=== PATIENT | female | born 1975 | race Caucasian/White ===

== ENCOUNTER 2022-01-05 08:55 | Outpatient (REF) | payer OTHER, SELFPAY ==
[2022-01-05 09:20] LABS: MANUAL DIFF FLAG NO
[2022-01-05 09:41] LABS: Basophils Absolute Auto 0.1 X10*3/uL (0.0-0.2); Eosinophils Absolute Auto 0.2 X10*3/uL (0.0-0.4); Eosinophils Percent Auto 3.9 % (0-4); Hemoglobin 11.5 g/dl (12.0-16.0); Imm Gran Abs Auto 0.02 X10*3/uL (0.00-0.03); Imm Gran Pct Auto 0.3 % (0.0-0.4); Lymphocytes Absolute Auto 1.5 X10*3/uL (1.2-4.9); Lymphocytes Percent Auto 23.6 % (20-40); Mean Corpuscular HGB Conc 31.9 g/dl (31.0-35.0); Mean Corpuscular Volume 87.6 fL (80.0-98.0); Mean Platelet Volume 9.4 fL (9.4-12.3); Monocytes Absolute Auto 0.5 X10*3/uL (0.1-1.2); Monocytes Percent Auto 7.6 % (2-11); Neutrophils Absolute Auto 3.9 x10*3/uL (2.0-8.3); Neutrophils Percent Auto 63.6 % (45-73); Platelet Count 257 X10*3/uL (160-400); Red Blood Count 4.11 X10*6/uL (4.20-5.50); Red Cell Distribution Width 16.4 % (11.0-16.0); White Blood Count 6.2 X10*3/uL (4.8-10.8)
[2022-01-05 10:11] LABS: Alanine Aminotransferase 22 U/L (0-31); Albumin Level 4.2 g/dL (3.5-5.0); Alkaline Phosphatase 72 U/L (39-117); Anion Gap 9 (12-20); Aspartate Amino Transferase 22 U/L (5-31); Bilirubin Total 0.6 mg/dL (0.0-1.0); Blood Urea Nitrogen 5 mg/dL (9-16); Calcium 9.1 mg/dL (8.4-10.2); Carbon Dioxide 27 mmol/L (22-29); Chloride 105 mmol/L (96-108); Cholesterol 194 mg/dL; Estimated Glomerular Filt Rate > 60; Glucose Fasting 96 mg/dL (60-99); HDL Cholesterol 39 mg/dL; LDL Cholesterol Calculated 140 mg/dl; Potassium 4.4 mmol/L (3.3-5.1); Sodium 137 mmol/L (135-145); Total Protein 7.4 g/dL (6.5-8.0); Triglycerides 79 mg/dL
[2022-01-05 10:23] LABS: TSH reflex Free T4 1.35 uIU/mL (0.32-4.0); Vitamin D 25-OH Total 11.4 ng/mL (>30)
[2022-01-05 11:27] LABS: Folate 4.7 ng/mL (> or = 4.0); Vitamin B12 243 pg/mL (200-900)
== END 2022-01-05 08:56 | disposition home or self-care (01) ==
LOC: HO.LAB 08:55
PROVIDERS: Visit Provider Nurse Practitioner Family
DX: I10 Essential (primary) hypertension (principal); E78.5 Hyperlipidemia, unspecified; E03.9 Hypothyroidism, unspecified; Z13.1 Encounter for screening for diabetes mellitus
CPT/HCPCS: 36415; 80053; 80061; 82306; 82607; 82746; 84443; 85025

== ENCOUNTER 2022-01-12 12:00 | Outpatient (REF) | payer OTHER, SELFPAY ==
--- NOTE | ~2022-01-12 | MM_ITS ---
EXAMINATION: MM SCREENING DIGITAL BREAST TOMOSYNTHESIS, BILATERAL CLINICAL INFORMATION: Screening. Asymptomatic. No prior breast imaging. Age 46. No known family history breast cancer. The lifetime risk of breast cancer based on the Tyrer-Cuzick Model is 12%. COMPARISON: None (current study represents initial baseline exam). TECHNIQUE: Digital breast tomosynthesis is performed in both the craniocaudal and mediolateral oblique views along with computer-aided detection (CAD). Synthesized 2D images are generated from the tomosynthesis. FINDINGS: There are scattered areas of fibroglandular density (ACR BI-RADS breast composition Category b). There are no significant masses, abnormal calcifications, or other abnormalities. Small circumscribed dermal lesion posterior medial right breast, confirmed with the technologist. The axilla are unremarkable. MM/MM tomosynthesis screening BI IMPRESSION: No mammographic evidence of malignancy. ASSESSMENT: BI-RADS 2: Benign RECOMMENDATION: Routine annual mammography screening. This patient's information was entered into a reminder system with a target due date for their next mammogram.
== END 2022-01-12 12:01 | disposition home or self-care (01) ==
LOC: HO.MAMMO 12:00
PROVIDERS: PCP Internal Medicine; Visit Provider Nurse Practitioner Family
DX: Z12.31 Encounter for screening mammogram for malignant neoplasm of breast (principal); K31.84 Gastroparesis; K21.9 Gastro-esophageal reflux disease without esophagitis
CPT/HCPCS: 77063; 77067; 99202

== ENCOUNTER → 2022-04-05 08:05 | Outpatient (REF) | payer OTHER, SELFPAY ==
--- NOTE | ~2022-04-05 | NM_ITS ---
EXAMINATION: [place] RADIONUCLIDE SOLID FOOD GASTRIC EMPTYING 4-HOUR STUDY CLINICAL INFORMATION: Gastroparesis. COMPARISON: None TECHNIQUE: A standard meal consisting of 4 oz of Egg Beaters brand tagged with 1000 microcuries Tc-99m Sulfur Colloid, 8 oz water and 2 slices of toast with jelly was administered orally to the patient. Images were obtained using a dual head gamma camera in the anterior and posterior projections over of the stomach immediately post ingestion and at hourly intervals up to 4 hours post ingestion. The anterior and posterior counts at each time interval were averaged using the geometric mean and expressed as percentage of the immediate post ingestion counts. FINDINGS: There is good visualization of activity in the stomach immediately post ingestion. As the study progresses, there is good clearance of activity from the stomach and visualization of progressively increasing small bowel activity. By the end of the study, there is almost no retention noted in the stomach. Retention in the stomach at each time interval was: 1 hour 90% (normal 37%-90%) 2 hours 76% (normal 30%-60%) 3 hours 55% 4 hours 52% (normal 0%-10%) AZ/AZ gastric emptying study IMPRESSION: Abnormal gastric emptying study showing features of gastroparesis.
[2022-04-05 13:49] LABS: Alanine Aminotransferase 13 U/L (0-31); Albumin Level 4.4 g/dL (3.5-5.0); Alkaline Phosphatase 74 U/L (39-117); Anion Gap 14 (12-20); Aspartate Amino Transferase 14 U/L (5-31); Bilirubin Total 0.4 mg/dL (0.0-1.0); Blood Urea Nitrogen 8 mg/dL (9-16); Calcium 9.9 mg/dL (8.4-10.2); Carbon Dioxide 27 mmol/L (22-29); Chloride 102 mmol/L (96-108); Cholesterol 217 mg/dL; Estimated Glomerular Filt Rate > 60; Glucose Random 91 mg/dL (60-115); HDL Cholesterol 41 mg/dL; LDL Cholesterol Calculated 154 mg/dl; Potassium 4.7 mmol/L (3.3-5.1); Sodium 138 mmol/L (135-145); Total Protein 8.1 g/dL (6.5-8.0); Triglycerides 111 mg/dL
[2022-04-05 14:13] LABS: TSH reflex Free T4 2.81 uIU/mL (0.32-4.0); Vitamin D 25-OH Total 42.5 ng/mL (>30)
== END ==
LOC: HO.NUCMED 08:05
PROVIDERS: Nurse Practitioner Family; Visit Provider Physician Assistant
DX: K31.84 Gastroparesis (principal); K21.9 Gastro-esophageal reflux disease without esophagitis; I10 Essential (primary) hypertension; R79.89 Other specified abnormal findings of blood chemistry; E78.5 Hyperlipidemia, unspecified; E03.9 Hypothyroidism, unspecified
CPT/HCPCS: 36415; 78264; 80053; 80061; 82306; 84443; A9541

== ENCOUNTER 2022-06-07 11:18 | Outpatient (REF) | payer OTHER, SELFPAY ==
[2022-06-07 12:53] LABS: Erythrocyte Sedimentation Rate 13 MM/HR (0-20)
[2022-06-08 13:07] LABS: Anti Nuclear Antibody Screen NEGATIVE (NEGATIVE)
[2022-06-20 18:31] LABS: Hu Antibody Screen, IFA Serum NEGATIVE (NEGATIVE); Yo Antibody, Serum Screen NEGATIVE (NEGATIVE)
== END 2022-06-07 11:19 | disposition home or self-care (01) ==
LOC: HO.LAB 11:18
PROVIDERS: PCP Internal Medicine; Visit Provider Physician Assistant
DX: R19.7 Diarrhea, unspecified (principal); R74.01 Elevation of levels of liver transaminase levels; K31.84 Gastroparesis; E03.9 Hypothyroidism, unspecified; Z87.74 Personal history of (corrected) congenital malformations of heart and circulatory system
CPT/HCPCS: 36415; 84181; 85652; 86038; 86039; 86255; 86256

== ENCOUNTER 2022-09-13 14:53 | Outpatient (REF) | payer OTHER, SELFPAY ==
--- NOTE | ~2022-09-13 | US_ITS ---
EXAMINATION: US THYROID CLINICAL INFORMATION: History of thyroid nodule. COMPARISON: None TECHNIQUE: Linear transducer grayscale and color Doppler examination with attention to the region of the thyroid. FINDINGS: SIZE: Measurements of the thyroid lobes and nodules are given in sagittal, anteroposterior and transverse dimensions respectively. Right Thyroid Lobe: 4.9 x 1.2 x 1.7 cm, volume 5.1 mL. Parenchyma: The gland echotexture is homogeneous. Thyroid vascularity is increased. Left Thyroid Lobe: 4.5 x 0.9 x 1.4 cm, volume 3.0 mL. Parenchyma: The gland echotexture is homogeneous. Thyroid vascularity is increased. Isthmus: 0.2 cm in maximum AP dimension. Estimated total number of nodules greater than or equal to 1 cm: 0. Type Photography Supervisor nodules are described as follows: 1. Location: Right medial mid. Size: 0.6 x 0.3 x 0.5 cm, volume 0.1 mL. Nodule characteristics: Composition: Solid/almost completely solid (2). Echogenicity: Hypoechoic (2). Shape: Not taller than wide (0). Margins: Smooth (0). Echogenic Foci: None (0). ACR TI-RADS total points: 4 ACR TI-RADS category: 4 2. Location: Right mid. Size: 0.2 x 0.2 x 0.2 cm, volume 0.004 mL. Nodule characteristics: Composition: Solid (2). Echogenicity: Hypoechoic (2). Shape: Not taller than wide (0). Margins: Smooth (0). Echogenic Foci: None (0). ACR TI-RADS total points: 4 ACR TI-RADS category: 4 3. Location: Left mid/inferior. Size: 0.6 x 0.5 x 0.5 cm, volume 0.1 mL. Nodule characteristics: Composition: Solid (2). Echogenicity: Hyperechoic (1). Shape: Not taller than wide (0). Margins: Smooth (0). Echogenic Foci: None (0). ACR TI-RADS total points: 3 ACR TI-RADS category: 3 NODES: No lymphadenopathy is seen in the tissue surrounding the thyroid gland. US/US thyroid IMPRESSION: Hypervascular thyroid gland, nonspecific could be seen with thyroiditis or autoimmune thyroid disorders. Multiple subcentimeter thyroid nodules, some hypoechoic and classified as TR-4, not meeting size criteria for further evaluation according to TI-RADS guidelines below. Recommend follow-up according to clinical criteria. ACR TI-RADS RECOMMENDATION REFERENCE: Ultrasound-guided fine-needle aspiration, followup ultrasound, no further follow up. * TR1 (0 point) and TR2 (2 points): No FNA or follow up. * TR3 (3 points): FNA if more than or equal to 2.5 cm in maximum dimension, followup ultrasound in 1, 3 and 5 years if 1.5 to 2.4 cm in maximum dimension. * TR4 (4-6 points): FNA if more than or equal to 1.5 cm in maximum dimension, followup ultrasound in 1, 2, 3 and 5 years if 1 to 1.4 cm in maximum dimension. * TR5 (more than or equal to 7 points): FNA if more than or equal to 1 cm in maximum dimension, followup ultrasound every year for 5 years if 0.5 to 0.9 cm in maximum dimension. * TR3, TR4 or TR5 nodules that are below the size threshold for followup receive no follow up.
== END 2022-09-13 14:54 | disposition home or self-care (01) ==
LOC: HO.US 14:53
PROVIDERS: Visit Provider Nurse Practitioner Family
DX: Z86.39 Personal history of other endocrine, nutritional and metabolic disease (principal)
CPT/HCPCS: 76536

== ENCOUNTER 2022-10-06 09:16 | Outpatient (REF) | payer OTHER, SELFPAY ==
[2022-10-06 12:14] LABS: Hemoglobin 11.8 g/dl (12.0-16.0); Mean Corpuscular HGB Conc 31.9 g/dl (31.0-35.0); Mean Corpuscular Hemoglobin 26.8 pg (27.0-33.0); Mean Corpuscular Volume 83.9 fL (80.0-98.0); Mean Platelet Volume 9.9 fL (9.4-12.3); Platelet Count 317 X10*3/uL (160-400); Red Blood Count 4.41 X10*6/uL (4.20-5.50); Red Cell Distribution Width 17.5 % (11.0-16.0); White Blood Count 5.6 X10*3/uL (4.8-10.8)
[2022-10-06 12:54] LABS: Alanine Aminotransferase 14 U/L (0-31); Albumin Level 4.3 g/dL (3.5-5.0); Alkaline Phosphatase 55 U/L (39-117); Anion Gap 13 (12-20); Aspartate Amino Transferase 20 U/L (5-31); Bilirubin Total 0.6 mg/dL (0.0-1.0); Blood Urea Nitrogen 7 mg/dL (9-16); Carbon Dioxide 27 mmol/L (22-29); Chloride 105 mmol/L (96-108); Cholesterol 152 mg/dL; Estimated Glomerular Filt Rate > 60; Glucose Fasting 80 mg/dL (60-99); HDL Cholesterol 53 mg/dL; LDL Cholesterol Calculated 86 mg/dl; Potassium 4.9 mmol/L (3.3-5.1); Sodium 140 mmol/L (135-145); Total Protein 7.4 g/dL (6.5-8.0); Triglycerides 67 mg/dL
[2022-10-06 13:13] LABS: TSH reflex Free T4 1.47 uIU/mL (0.32-4.0); Vitamin D 25-OH Total 18.2 ng/mL (>30)
[2022-10-08 06:10] LABS: Thyroid Peroxidase Antibodies 205 IU/mL (<9)
== END 2022-10-06 09:17 | disposition home or self-care (01) ==
LOC: HO.LAB 09:16
PROVIDERS: Nurse Practitioner Family; PCP Internal Medicine; Visit Provider Physician Assistant
DX: K31.84 Gastroparesis (principal); K21.9 Gastro-esophageal reflux disease without esophagitis; K64.9 Unspecified hemorrhoids; E03.9 Hypothyroidism, unspecified; E78.5 Hyperlipidemia, unspecified; I10 Essential (primary) hypertension; R79.89 Other specified abnormal findings of blood chemistry; Z87.74 Personal history of (corrected) congenital malformations of heart and circulatory system; Z86.39 Personal history of other endocrine, nutritional and metabolic disease
CPT/HCPCS: 36415; 80053; 80061; 82306; 84443; 85027; 86376; 99212

== ENCOUNTER → 2022-11-01 12:58 | Outpatient (BNVA) | payer OTHER, SELFPAY | PROVIDERS: PCP Internal Medicine; Referring Provider Physician Assistant; Visit Provider Internal Medicine Cardiovascular Disease | DX: Z01.810 Encounter for preprocedural cardiovascular examination (principal); I25.2 Old myocardial infarction | CPT/HCPCS: 93005; 99202 ==

== ENCOUNTER → 2022-11-15 08:16 | Outpatient (REF) | payer OTHER, SELFPAY ==
--- NOTE | 2022-11-15 08:20 | CA_ITS ---
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 - The left ventricular systolic function is mildly decreased. The calculated ejection fraction is 50% by biplane method. - The apex segment is akinetic. - The basal inferior and basal inferolateral segments are hypokinetic. - No obvious valvular pathology seen on this study. - The inferior vena cava is dilated and collapses greater than 50% with inspiration. Findings Procedure Information Contrast agent, definity, is being given per protocol without apparent complications. Left Ventricle Mildly increased left ventricular cavity size. There is normal left ventricular wall thickness. The left ventricular systolic function is mildly decreased. The calculated ejection fraction is 50% by biplane method. There is evidence of regional wall motion abnormalities. Diastolic function is normal for age. Wall Motion Rest Echo Findings The basal inferior and basal inferolateral segments are hypokinetic. The apex segment is akinetic. Right Ventricle Normal right ventricular cavity size and systolic function. Atria The left atrium is normal in size. The right atrium is normal in size. Aortic Valve There is a normal trileaflet aortic valve. There is no aortic valve stenosis. There is trace (trivial) aortic valve regurgitation. Mitral Valve The mitral valve appears normal. There is no mitral valve regurgitation. There is no mitral valve stenosis. Pulmonic Valve The pulmonic valve is likely normal. Tricuspid Valve There is trace tricuspid valve regurgitation. There is no evidence of pulmonary hypertension. Great Vessels The asc aorta is normal in size. Venous The inferior vena cava is dilated and collapses greater than 50% with inspiration. Pericardium/Pleural There is no evidence of pericardial effusion. Prior Study Comparison No prior study available for comparison. Recommendations, Care & Conclusions No obvious valvular pathology seen on this study. Measurements 2D Linear Measurements IVSd: 0.67 0.6-0.9/0.6-1.0 cm LVIDd: 5.54 3.9-5.3/4.2-5.9 cm LVIDd Index: 2.86 2.4-3.2/2.2-3.1 cm/m2 LVIDs: 3.91 2.0-3.6 cm LVPWd: 0.70 0.7-1.1 cm LA Diam: 3.40 2.7-3.8/3.0-4.0 cm LAIDs Index: 1.75 1.5-2.3 cm/m2 LV Mass: 165.11 67-162/88-224 g LV Mass Index: 85.11 43-95/49-115 g/m2 LVOT Diam: 2.10 3.0+(-)1.3 cm 2D Systolic Function EF 4C: 43.40 >55% EF 2C: 56.70 >55% EF BiP: 50.20 >55% Mitral Valve MV Pk E: 0.81 MV PK A: 0.65 MV Decel Time: 145.00 E/A: 1.30 E'Lateral: 7.72 E'Medial: 6.20 E/E' Med: 13.10 E/E' Lat: 10.50 PHT: 43.00 MVA PHT: 5.12 Decel Kerr: 5.60 Aortic Valve AoV Pk Riky: 1.27 AoV Mn Riky: 0.92 AoV VTI: 0.31 AoV Pk Grad: 6.00 Aov Mn Grad: 4.00 FRED Cont.VTI: 2.32 LVOT LVOT Pk Riky: 0.84 LVOT Mn Riky: 0.59 LVOT VTI: 0.21 LVOT Pk Grad: 3.00 LVOT Mn Grad: 2.00 LVOT Diam: 2.10 LVOT Area: 3.46 Diastolic Function MV Pk E: 0.81 MV Pk A: 0.65 E/A: 1.30 E'Medial: 6.20 E/E' Med: 13.10 E' Laterial: 7.72 E/E' Lat: 10.50 Right Ventricle TAPSE (mm): 24.00 TVS' Riky: 12.60 Tricuspid Valve TR Pk Riky: 2.21 TR Pk Grad: 20.00 RA Press: 8.00 RVSP: 28.00 Great Vessels Aorta Sinus of Valsalva: 3.60 2.0-3.[address] [place]: 2.73 1.7-3.4 cm Ao Asc: 3.30 2.1-3.4 cm Updated in Other Vendor System with Status of Final Nick Ni MD electronically signed on 11/16/2022 11:52:40 AM with status of Final
== END ==
LOC: HO.CARD 08:16
PROVIDERS: PCP Internal Medicine; Visit Provider Internal Medicine Cardiovascular Disease
DX: I25.2 Old myocardial infarction (principal)
CPT/HCPCS: 93306; Q9957

== ENCOUNTER → 2022-12-13 16:14 | Outpatient (BNVA) | payer OTHER, SELFPAY | PROVIDERS: PCP Internal Medicine; Visit Provider Internal Medicine Endocrinology, Diabetes & Metabolism | DX: E03.9 Hypothyroidism, unspecified (principal) | CPT/HCPCS: 99202 ==

== ENCOUNTER 2023-01-03 08:32 | Day surgery (SDC) | payer OTHER, SELFPAY ==
[2022-12-30 09:58] VITALS: BMI 22.0
--- NOTE | 2023-01-02 11:05 | HO.ANESPROP2 ---
Documented by User: Lynsey Liu NP 01/02/23 11:08 HPI - Anesthesia Eval Consult details Narrative: 47yo F for Upper Endoscopy and Colonoscopy Cardiac optimized (Pt with hx of STEMI 2016 - cath/likely thromectomy, but records not available for review. Per cardiac office eval, no concerning symptoms with high exercise workload) PMFSH Active Problems Active Problems: All Active Problems (Updated 12/30/22 @ 10:00 by Keyona Chung RN) HTN (hypertension) (Acute) GERD (gastroesophageal reflux disease) (Acute) Hyperlipidemia (Acute) Hypothyroidism (Acute) Gastroparesis (Acute) Screening for diabetes mellitus (Acute) Gastritis (Acute) Low vitamin D level (Acute) Screening for breast cancer (Acute) Lower back pain (Acute) Left hand pain (Acute) Adult general medical exam (Acute) Cervical cancer screening (Acute) Hx of cardiac cath (Acute) Toenail fungus (Acute) Ingrown toenail of right foot (Acute) History of thyroid nodule (Acute) Hemorrhoids (Acute) History of myocardial infarction (Acute) Past Medical History Medical History (Updated 12/30/22 @ 10:00 by Keyona Chung RN) Encounter to establish care Heart attack History of myocardial infarction Family History Family History Mother Hypertension CHF (congestive heart failure) Afib Rheumatoid arthritis Father Hypertension High cholesterol Surgical History Surgical History (Updated 12/30/22 @ 10:00 by Keyona Chung RN) History of esophagogastroduodenoscopy (EGD) Hx of cardiac catheterization S/P tonsillectomy S/P tubal ligation Social History Social History Housing: House Patient Tobacco Use Status: Former Tobacco user Years Smoked: stopped in 2016, pt uses marijuanna for pain e-Cigarette/Vaping Use: Never Used Use of substances other than those prescribed or required for medical reasons: Yes Substance Use Type Other:: daily Are you DNR?: No Advance Directives: No Advance Directives Information Provided: Yes service: No Current occupational status: employed Cognitive needs: No Hearing needs: No Vision needs: Yes Meds Allergies Allergy/AdvReac Type Severity Reaction Status Date / Time Penicillins Allergy Mild Vomiting Verified 12/13/22 16:32 codeine Allergy Vomiting Verified 12/13/22 16:32 metoclopramide [From Reglan] AdvReac Intermediate Involuntary Verified 12/13/22 16:32 Spasms Home Medications Medication Instructions Recorded Confirmed Last Taken Type aspirin 81 mg tablet,delayed 81 mg PO DAILY 01/05/22 12/30/22 12/25/22 History release Exam Exam Date and Time: January 02, 2023 1105 Height,Weight and Vital Signs: Height 6 ft Weight 73.482 kg Pertinent Lab Results Pertinent Lab Results: Laboratory Tests 10/06/22 10/06/22 11:00 11:00 WBC 5.6 Hgb 11.8 L Hct 37.0 Plt Count 317 Sodium 140 Potassium 4.9 Chloride 105 Carbon Dioxide 27 BUN 7 L Creatinine 0.70 Narrative Narrative: EKG 10/2022 normal sinus rhythm with low-voltage QRS with poor R-wave progression in the anterior leads as well as Q-wave in lead 3, overall findings could be suggestive of apical infarct ECHO 10/2022 Conclusions: - Mildly increased left ventricular cavity size. ? - The left ventricular systolic function is mildly decreased.? ? The calculated ejection fraction is 50% by biplane method. ? ? ? - The apex segment is akinetic.? - The basal inferior and basal inferolateral segments are? hypokinetic. ? - No obvious valvular pathology seen on this study.? - The inferior vena cava is dilated and collapses greater than ? 50% with inspiration.? ? ? Assessment and Plan Assessment Anesthesia Assessment: Chart Reviewed Documented by User: Perico Chin MD 01/03/23 10:14 [facility] Past Medical History Medical History (Updated 12/30/22 @ 10:00 by Keyona Chung RN) Encounter to establish care Heart attack History of myocardial infarction Family History Family History Mother Hypertension CHF (congestive heart failure) Afib Rheumatoid arthritis Father Hypertension High cholesterol Family history of problems with anesthesia: No Surgical History Surgical History (Updated 12/30/22 @ 10:00 by Keyona Chung RN) History of esophagogastroduodenoscopy (EGD) Hx of cardiac catheterization S/P tonsillectomy S/P tubal ligation History of Problems with Anesthesia: No Social History Social History Housing: House Patient Tobacco Use Status: Former Tobacco user Years Smoked: stopped in 2015, pt uses marijuanna for pain e-Cigarette/Vaping Use: Never Used Use of substances other than those prescribed or required for medical reasons: Yes Substance Use Type Other:: daily Are you DNR?: No Advance Directives: No Advance Directives Information Provided: Yes service: No Current occupational status: employed Cognitive needs: No Hearing needs: No Vision needs: Yes Meds Allergies Allergy/AdvReac Type Severity Reaction Status Date / Time Penicillins Allergy Mild Vomiting Verified 12/13/22 16:32 codeine Allergy Vomiting Verified 12/13/22 16:32 metoclopramide [From Reglan] AdvReac Intermediate Involuntary Verified 12/13/22 16:32 Spasms Home Medications Medication Instructions Recorded Confirmed Last Taken Type aspirin 81 mg tablet,delayed 81 mg PO DAILY 01/05/22 12/30/22 12/25/22 History release Assessment and Plan Assessment Anesthesia Assessment: Anesthesia Plan Discussed Final Anesthetic Review Family History of Problems with Anesthesia: No History of Problems with Anesthesia: No NPO: Yes ASA Class: III Final Preanesthetic Review: No Changes in Pt Med Stat, Meds/Allgs Chart Reviewed, Consent Obtained/Reviewed and Anes Risks/Benef Reviewed Patient Risk: Intermediate Procedure Risk: Low Anesthetic Plan Anesthetic Plan: MAC: Disposition: Standard PACU
[2023-01-03 08:46] VITALS: BMI 21.0
[2023-01-03 08:50] VITALS: BP 163/90; PULSE 71; RESP 16; TEMP 36.6; O2SAT 99; BMI 21.0
--- NOTE | 2023-01-03 08:58 | MHC.SHP ---
Pre-Procedural Eval Section A Date of Service: 01/03/23 Section B Chief Complaint: gastroparesis and screening Relevant Family History (Specify if Yes): No Relevant Social History: Other (specify) (THC) Present Medications: see Short Stay Collaborative assessment Medical History: Significant History (LA ) History of Previous Operations: Relevant previous surgery/procedure and date(s) (History of esophagogastroduodenoscopy (EGD) S/P tonsillectomy S/P tubal ligation) Allergies: Allergies Allergy/AdvReac Type Severity Reaction Status Date / Time Penicillins Allergy Mild Vomiting Verified 12/13/22 16:32 codeine Allergy Vomiting Verified 12/13/22 16:32 metoclopramide [From Reglan] AdvReac Intermediate Involuntary Verified 12/13/22 16:32 Spasms Review of Systems Sugical H&P ROS: Negative: Constitution, Cardiovascular, Respiratory, Neurological, Psychiatric, Hem-Onc, Allergic/Immunologic, Gastrointestinal, Genitourinary, Musculoskeletal, Integumentary, Endocrine and Eyes/Ears/Nose/Throat Exam Surgical H&P Exam: Normal: HEENT, Normal: Heart, Normal: Lungs, Normal: Extremities, Normal: Abdomen, Normal: Skin and Normal: Neurological Plan Diagnosis/Plan: Unchanged I have reviewed the history and physical and performed a pertinent physical examination on my patient. No changes have occurred unless specified. Time Spent With Patient Time: Total time managing care of this patient today ____ minutes.
[2023-01-03] MEDS: Lactated Ringers 1,000 ML 100 ML IVCONT (09:22)
--- NOTE | 2023-01-03 10:23 | W.PM.OPN ---
Operative Note Operative Note Date of Service: 01/03/23 Narrative: Operative Information Procedure Description: EGD, Colonoscopy Indication: gastroparesis and screening colonoscopy Anesthesia: MAC FLEXIBLE TRANSORAL UPPER GASTROINTESTINAL ENDOSCOPY AND COLONOSCOPY PROCEDURE NOTE UPPER ENDOSCOPY Consent: Indications for the procedure and potential complications of bleeding, perforation, reaction to medications and missed diagnosis were discussed with the patient and informed consent was obtained. Instrument: Olympus GIF H 190 J mid size upper endoscope Monitoring: Vital signs and clinical assessment, continuous EKG monitoring, Pulse oximetry, Carbon Dioxide monitoring and blood pressure monitoring were done throughout the procedure. Procedure: The patient was placed in the left lateral decubitis position and pre-procedure medications were administered and a bite block was placed. The endoscope was inserted into the mouth and advanced under direct vision to the third part of duodenum. A careful inspection was made as the upper endoscope was withdrawn including a retroflexed examination of the proximal stomach; Findings and interventions are described below. Findings: Larynx:normal Esophagus: GE junction at 40 cm, diaphragm hiatus at 40 cm, bx taken from GEJ and distal esophagus Stomach: Normal mucosa. Biopsies were obtained. Grade 2 flap valve on retroflexed examination of the cardia. Reduced gastric movement noted, possible extrinsic compression of distal stomach with mild pallor. The pylorus was stretched to 19 mm. no heme noted. Duodenum: Normal bulb and descending duodenum, bx taken Intervention: Biopsies as noted above COLONOSCOPY Instrument: Olympus variable stiffness ADULT scope 190L Colonoscopy Monitoring: Vital signs and clinical assessment, continuous EKG monitoring, Pulse oximetry, Carbon Dioxide monitoring and blood pressure monitoring were done throughout the procedure. Colon withdrawal time was 11 minutes. Procedure: The patient was placed in the left lateral decubitis position and pre-procedure medications were administered. After a digital rectal examination of the ano-rectum, the video colonoscope was inserted into the rectum and advanced through the colon to the cecum/TI. The colonoscope was slowly withdrawn in a retrograde panoramic fashion and the colon mucosa was carefully examined including a retroflexed view of the rectum. Findings and interventions are described below. Procedure Difficulty:moderate Findings: Terminal Ileum-normal, bx taken Random colon bx taken with cold forceps, lack of colonic movement also noted Cecum:normal Ascending Colon: normal Transverse Colon -normal Descending Colon: 10-12 mm sessile polyp removed with cold snare Sigmoid Colon: normal Rectum: Retroflexion with small internal hemorrhoids, grade I Anorectum - normal Colon preparation: [place] Bowel Preparation Scale Right colon; 2 Transverse colon: 3 Left colon; 3 (0 = Unprepared colon segment with mucosa not seen due to solid stool that cannot be cleared. 1 = Portion of mucosa of the colon segment seen, but other areas of the colon segment not well seen due to staining, residual stool and/or opaque liquid. 2 = Minor amount of residual staining, small fragments of stool and/or opaque liquid, but mucosa of colon segment seen well. 3 = Entire mucosa of colon segment seen well with no residual staining, small fragments of stool or opaque liquid) Impression and Post Procedure Diagnosis: Endoscopy Findings: gastroparesis possible extrinsic compression of distal stomach with Colonoscopy Findings: polyp internal hemorrhoids reduced motility of colon Plan: Await Pathology results Repeat Colonoscopy in 5 years due to polyp or earlier if clinically indicated High fiber diet leaflet avoid straining at stool, epsom salts and sitz bath, anusol supps or cream doppler to r/o SMA or celiac axis compression Above findings were reviewed with the patient and relevant handouts were provided if indicated.
[2023-01-03 10:30] VITALS: BP 140/90; PULSE 84; RESP 20; TEMP 36.1; O2SAT 100
[2023-01-03 10:45] VITALS: BP 132/88; PULSE 83; RESP 18; O2SAT 100
[2023-01-03 11:00] VITALS: BP 128/89; PULSE 78; RESP 16; TEMP 36.2; O2SAT 100
== END 2023-01-03 11:22 | disposition home or self-care (01) ==
PROVIDERS: PCP Internal Medicine; Visit Provider Internal Medicine Gastroenterology
PROC: (CPT 45385; principal; 2023-01-03 10:10)
DX: Z12.11 Encounter for screening for malignant neoplasm of colon (principal); D12.4 Benign neoplasm of descending colon; K64.0 First degree hemorrhoids; K59.89 Other specified functional intestinal disorders; K31.84 Gastroparesis; K21.9 Gastro-esophageal reflux disease without esophagitis; K55.1 Chronic vascular disorders of intestine; K29.50 Unspecified chronic gastritis without bleeding; K44.9 Diaphragmatic hernia without obstruction or gangrene; I25.2 Old myocardial infarction; Z79.82 Long term (current) use of aspirin; Z79.899 Other long term (current) drug therapy; Z88.8 Allergy status to other drugs, medicaments and biological substances; Z88.0 Allergy status to penicillin; F12.90 Cannabis use, unspecified, uncomplicated; Z87.891 Personal history of nicotine dependence
CPT/HCPCS: 45385; 45380; 43239; 88305; 88313; 88341; 88342; C1726

== ENCOUNTER 2023-01-31 07:46 | Outpatient (REF) | payer OTHER, SELFPAY ==
--- NOTE | ~2023-01-31 | US_ITS ---
EXAMINATION: US MESENTERIC DOPPLER CLINICAL INFORMATION: Chronic vascular disorder. COMPARISON: None available. TECHNIQUE: Doppler interrogation of the aorta, celiac, SMA, CLOVER, splenic artery and hepatic artery were performed. FINDINGS: All velocities below are reported in cm per second. Aorta: Proximal SMA: 112. Distal SMA: 99. Celiac Artery: Inspiration Supine: 246. Inspiration Erect: 176. Expiration Supine: 99. Expiration Erect: 90. SMA: Proximal: 183. Mid: 112. Distal: 110. CLOVER: 60. Splenic Artery: 102. Hepatic Artery: 76. 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 All other velocities are normal.
[2023-01-31 09:09] LABS: Cholesterol 134 mg/dL; HDL Cholesterol 60 mg/dL; LDL Cholesterol Calculated 63 mg/dl; Triglycerides 56 mg/dL
[2023-01-31 09:21] LABS: Thyroid Stimulating Hormone 1.51 uIU/mL (0.32-4.0)
[2023-01-31 10:31] LABS: INTERNATIONAL NORM RATIO 1.1 (0.9-1.1); Partial Thromboplastin Time 30.1 SEC (26.0-36.4); Prothrombin Time 12.3 SEC (10.0-13.1)
[2023-02-02 18:24] LABS: Homocysteine 10.6 umol/L (<10.4)
[2023-02-02 21:54] LABS: Hexagonal Phase Neutralization Negative (Negative); PTT (LAC) Screen 42 sec (<=40)
[2023-02-06 19:58] LABS: Cardiolipin IgG Ab <2.0 GPL-U/mL; Cardiolipin IgM Ab <2.0 MPL-U/mL
[2023-02-07 18:44] LABS: Factor V Leiden NEGATIVE
== END 2023-01-31 07:47 | disposition home or self-care (01) ==
LOC: HO.US 07:46
PROVIDERS: Internal Medicine Cardiovascular Disease; Absent Provider Nurse Practitioner Family; PCP Internal Medicine; Visit Provider Internal Medicine Gastroenterology
DX: I25.2 Old myocardial infarction (principal); I25.10 Atherosclerotic heart disease of native coronary artery without angina pectoris; R79.89 Other specified abnormal findings of blood chemistry; E78.5 Hyperlipidemia, unspecified; E03.9 Hypothyroidism, unspecified; K55.1 Chronic vascular disorders of intestine
CPT/HCPCS: 36415; 80061; 81241; 82306; 83090; 84443; 85597; 85598; 85610; 85611; 85613; 85670; 85730; 85732; 86141; 86147; 93976

== ENCOUNTER 2023-02-02 14:52 | Outpatient (AMB) | payer OTHER, SELFPAY ==
--- NOTE | 2023-02-02 14:54 | A.OFFVIS_ITS ---
Intake Vital Signs 02/02/23 14:55 Height 5 ft 9.88 in Weight 156 lb 8.451 oz BMI 22.5 BP 142/86 H Blood Pressure Location Lt brachial Position Sitting Pulse 95 Intake Visit Reasons: S/P double; [place] Intake Note: Lynsey presents in the office as a follow up for her doubles. CC: No concerns today Advertising Inserter Required: No Allergies Penicillins Allergy (Mild, Verified 02/02/23 14:56) Vomiting codeine Allergy (Verified 02/02/23 14:56) Vomiting metoclopramide [From Reglan] Adverse Reaction (Intermediate, Verified 02/02/23 14:56) Involuntary Spasms Medication List - Last Reconciled 02/02/23 by Anabell Singh PA-C ascorbate calcium (vitamin C) 1 g PO Q6H aspirin 81 mg PO DAILY famotidine 40 mg PO DAILY 90 days pantoprazole 40 mg PO DAILY promethazine 25 mg PO TID PRN rosuvastatin (Crestor) 40 mg PO DAILY sucralfate 1 g PO TID 30 days HPI HPI Comments History of Present Illness Details A 47 y/o female follows after EGD/ colonoscopy with bx-- acid reflux- Reviewed the procedure report and pathology as well as recommendation Overall he feels abdominal pain is somewhat lessened however continues to get epigastric right upper quadrant cramping typically after eating Had doppler 2 days ago-results are pending She occasionally gets nausea no vomiting no fever chills PFSH Medical History (Updated 02/02/23 @ 15:18 by Anabell Singh PA-C) Encounter to establish care Heart attack History of myocardial infarction Surgical History History of esophagogastroduodenoscopy (EGD) Hx of cardiac catheterization Hx of colonoscopy S/P tonsillectomy S/P tubal ligation Family History Mother Hypertension CHF (congestive heart failure) Afib Rheumatoid arthritis Father Hypertension High cholesterol Social History (Updated 02/07/23 @ 12:31 by Anabell Singh PA-C) Housing: House Alcohol intake: never Patient Tobacco Use Status: Former Tobacco user Years Smoked: stopped in 2015, pt uses marijuanna for pain e-Cigarette/Vaping Use: Never Used Second Hand Smoke Exposure: No Substance Use Type: Marijuana service: No Current occupational status: employed Current occupation: [employer] Cognitive needs: No Hearing needs: No Vision needs: Yes Review of Systems Const All systems reviewed & are unremarkable except as noted in HPI and below Card Denies chest pain and Denies dyspnea Resp Denies dyspnea GI Reports abdominal pain (Epigastric/ruq-postprandial) and Denies vomiting Physical Exam Vital Signs: Last Vital Signs Pulse 95 02/02/23 14:55 BP 142/86 H 02/02/23 14:55 BMI result Body Mass Index 22.5 Const General: cooperative, healthy appearing, comfortable and no acute distress Orientation/consciousness: patient oriented x3 Limitations: no limitations Resp Effort & Inspection: normal respiratory effort and able to speak in complete sentences Neuro General: patient oriented x3 Extrem General: Yes full ROM Psych Appearance: grossly normal Mental Status: mental status grossly normal Speech and movement: Normal speech and movement present Affect: normal affect Attitude: cooperative Thought process: Normal thought process present Thought content: Normal thought content present Results Reviewed Results Reviewed: mpression and Post Procedure Diagnosis: Endoscopy Findings: gastroparesis possible extrinsic compression of distal stomach with Colonoscopy Findings: polyp internal hemorrhoids reduced motility of colon Plan: Await Pathology results Repeat Colonoscopy in 5 years due to polyp or earlier if clinically indicated High fiber diet leaflet avoid straining at stool, epsom salts and sitz bath, anusol supps or cream doppler to r/o SMA or celiac axis compression Name:Lynsey Valle Age/Sex: 47/F Attending: Jessica Middleton MD : 1975 Submitted by: Jessica Middleton MD Copies to: Maranda Modi MD MR #: [id number] ? Status: [facility] Collected: 01/03/23 Location: [facility] Received: 01/03/23 ADDENDUM REPORTAddendum Addendum #1 IgG4 Studies (relative % of IgG4 plasma cells with respect to all IgG positive plasma cells). A.? Duodenum (10) B.? Stomach (25) C.? Gastro-esophageal junction (38) E.? Terminal ileum (6) F.? Random colon (2) G.? Descending colon polyp (37) Studies report that IgG4-related diseases typically have at least 40% IgG4 plasma cells and that other features such as fibrosis are present.? In this case, IgG4 positive cells are not relatively increased.? Please correlate with other clinical findings. Technical services for immunohistochemistry studies performed at [facility], [place], [place]; CLIA #[id number] Electronically Signed By: Michaela Marcum ? 01/11/231831 Diagnosis A.? Duodenum, biopsy:? Duodenal mucosa with preserved villi and no specific change.? B.? Stomach, biopsy:? Gastric antral and body mucosa with minimal chronic inactive gastritis; negative for H pylori, intestinal metaplasia and dysplasia.? C.? Gastroesophageal junction, biopsy:? Gastric fundic type mucosa with minimal chronic inactive inflammation; negative for intestinal metaplasia and dysplasia; no squamous mucosa present.? D.? Esophagus, distal, biopsy:? Squamous mucosa with no specific change; no columnar mucosa present.? E.? Ileal mucosa with no specific change. F.? Colon, random, biopsy:? Colonic mucosa with lymphoid aggregates and no specific change. G.? Colon, descending, polyp:? Tubular adenoma; negative for high-grade dysplasia and carcinoma. Comment:? There is no evidence of amyloid or mastocytosis in any location.? Stains for IgG and IgG4 are pending; addendum to follow. Clinical History Pre-Op Dx:? Colon cancer screening, hx/o gastroparesis Post-Op Dx: Gastroparesis, gastritis, colon polyp, internal hemorrhoids, stain for amyloid, mast cells and IgG4 Microscopic Description Microscopic sections reviewed.? Immunohistochemical stain for H. pylori on B is negative. Congo red stain is negative for amyloid on a, B, C, D, E, F, and G. ? Appropriate controls. CD117 Immunohistochemistry (# cells per high powered field): A.? Duodenum (42) B.? Stomach (35) C.? GE junction (38) D.? Distal esophagus (2) E.? Terminal ileum (42) F. ? Random colon (28) G.? Descending colon polyp (25) GI tract involvement by systemic mastocytosis is characterized by aggregates of atypical appearing mast cells, which are often oval or spindle-shaped - features not seen in the current specimens.? In reactive processes, mast cells are not atypical appearing and occur singly.? In one study (Andrey et al. PMID [id number]), the number of mast cells per high-powered field in IBS patients with diarrhea was elevated compared to asymptomatic patients (30 per high-powered field for IBS; 26 per high-powered field for asymptomatic patients in colon biopsies; statistically significant).? Mast cell density in other areas of the GI tract is not well characterized.? There are myriad other causes of elevated mast cells in GI mucosa, including allergies, celiac disease, malignancies, infections and drugs, among other etiologies (lalo Thorne. PMID [id number]).? Correlation with the patient's clinical presentation and other laboratory studies is necessary. Assessment & Plan Assessment & Plan (1) Tubular adenoma: Code(s): D36.9 - Benign neoplasm, unspecified site Plan: repeat colon 5 year (2) SMAS (superior mesenteric artery syndrome): Code(s): K55.1 - Chronic vascular disorders of intestine Plan Await Doppler study Continue to consult with Dr. Middleton Orders: Orders CT angio abdomen Today K55.1 - Chronic vascular disorders of intestine Medications: Changed From promethazine 25 mg PO TID PRN 7 tabs 0RF nausea and vomiting To promethazine 25 mg PO TID PRN Patient Instructions: A 47 y/o female with somewhat complex history, chronic epigastric/right upper quadrant pain. . After recent EGD colonoscopy Awaiting Doppler study results-will call with plan of care Continue usual medications Encouraged to call with any concerns Appreciate the opportunity to assist in the care this pleasant patient Coding Level of Care Code Est Pt Level 3 (99862) Diagnoses Tubular adenoma D36.9 SMAS (superior mesenteric artery syndrome) K55.1 Time Spent (min) 30
[2023-02-02 14:55] VITALS: BP 142/86; PULSE 95; BMI 22.5
== END 2023-02-02 15:24 | disposition home or self-care (01) ==
PROVIDERS: PCP Internal Medicine; Visit Provider Physician Assistant
DX: D36.9 Benign neoplasm, unspecified site (principal); K55.1 Chronic vascular disorders of intestine
CPT/HCPCS: 99213

== ENCOUNTER → 2023-02-02 14:52 | Outpatient (BNVA) | payer OTHER, SELFPAY | PROVIDERS: PCP Internal Medicine; Visit Provider Physician Assistant | DX: K55.1 Chronic vascular disorders of intestine (principal); D12.4 Benign neoplasm of descending colon; Z98.890 Other specified postprocedural states | CPT/HCPCS: 99212 ==

== ENCOUNTER 2023-03-22 07:57 | Outpatient (REF) | payer OTHER, SELFPAY ==
--- NOTE | ~2023-03-22 | CT_ITS ---
EXAMINATION: CT ANGIOGRAPHY ABDOMEN WITH CONTRAST CLINICAL INFORMATION: Vascular disorder of intestine; concern for superior mesenteric artery syndrome COMPARISON: Mesenteric ultrasound 01/31/2023 TECHNIQUE: Initial noncontrast localizing online services manager images were obtained. A timing bolus at the level of the celiac artery was calculated. Subsequently, arterial phase multidetector volumetric imaging was performed through the abdomen following the administration of 80 mL Omnipaque 350 intravenous contrast. No contrast reaction reported. Sagittal and coronal reformatted images were obtained on the technologist workstation. After extensive post-processing on a dedicated 3-D workstation, 3-D reformatted images were uploaded to PACS and reviewed as well. This CT examination was performed using dose optimization techniques as appropriate, variously including the following: *Automated exposure control *Adjustment of mA and/or kV according to patient size (this includes techniques or standardized protocols for targeted exams where dose is matched to indication/reason for exam; i.e. extremities or head) *Use of iterative reconstruction technique DLP: 266 mGy-cm FINDINGS: VASCULAR: No abdominal aortic aneurysm or dissection. Distal infrarenal abdominal aorta measures 1.5 cm. Celiac artery patent without stenosis or extrinsic compression. Superior mesenteric artery patent. Inferior mesenteric artery patent. Accessory right and single left renal arteries. Renal arteries are patent and without stenosis or other vascular anomaly. NONVASCULAR: Lung Bases: The visualized lung bases are clear. Liver: Homogeneous in attenuation. Normal in size. Gallbladder: Calcified cholelithiasis without cholecystitis. Biliary System: No intrahepatic or extrahepatic biliary dilation. Pancreas: Homogeneous in attenuation. Spleen: Normal in size. Genitourinary: Bilateral kidneys demonstrate symmetric enhancement. No perinephric fluid collection. No renal calculi. No hydroureteronephrosis. Adrenal Glands: Unremarkable. Gastrointestinal: The visualized alimentary tract is normal in course. No evidence of obstruction. Peritoneum: No pneumoperitoneum. No intra-abdominal fluid collection. Lymph Nodes: No pathologically enlarged abdominal or pelvic lymph nodes. Soft Tissues/Musculoskeletal: Disc osteophyte complex at L5-S1 results in moderate bilateral neural foraminal and mild central canal stenosis. No focal osseous lesions or acute fractures. CT/CT angio abdomen IMPRESSION: No vascular abnormality of the celiac or superior mesenteric artery to suggest median arcuate ligament syndrome or superior mesenteric artery syndrome. Fleischner guidelines were followed.
[2023-03-22] MEDS: iohexoL 350 MG/ML 100 ML INFUS..BTL IV (09:06)
== END 2023-03-22 07:58 | disposition home or self-care (01) ==
LOC: HO.CT 07:57
PROVIDERS: PCP Student in an Organized Health Care Education/Training Program; Visit Provider Physician Assistant
DX: K55.1 Chronic vascular disorders of intestine (principal)
CPT/HCPCS: 74175; Q9967

== ENCOUNTER 2023-06-27 09:15 | Outpatient (REF) | payer OTHER, SELFPAY ==
[2023-06-27 18:17] LABS: CT PCR NOT DETECTED (Not Detect.); NG PCR NOT DETECTED (Not Detect.)
[2023-06-28 14:21] LABS: BV Int Neg Control Negative (Negative); BV Int Pos Control Positive (Positive)
[2023-07-03 22:44] LABS: HPV 16 RNA DETECTED (NOT DETECTED); HPV mRNA E6/E7 rflx Detected (Not Detected)
== END 2023-06-27 09:16 | disposition home or self-care (01) ==
LOC: HO.LNP 09:15
PROVIDERS: PCP Internal Medicine; Visit Provider Advanced Practice Midwife
DX: Z01.419 Encounter for gynecological examination (general) (routine) without abnormal findings (principal); Z98.51 Tubal ligation status; Z79.899 Other long term (current) drug therapy; K31.84 Gastroparesis; I25.2 Old myocardial infarction; Z11.3 Encounter for screening for infections with a predominantly sexual mode of transmission
CPT/HCPCS: 0353U; 87480; 87510; 87624; 87625; 87660; 88142

== ENCOUNTER 2023-06-27 09:15 | Outpatient (AMB) | payer OTHER, SELFPAY ==
[2023-06-27 09:20] VITALS: BMI 22.0
--- NOTE | 2023-06-27 09:20 | A.OFFVIS_ITS ---
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 weird menstrual cycle. Transport Technician Required: No Information Interpreted: non-clinical & clinical Check And Transfer Beader: Check And Transfer Beader Present (Violetyn) Allergies Penicillins Allergy (Mild, Verified 06/27/23 09:24) Vomiting codeine Allergy (Verified 06/27/23 09:24) Vomiting metoclopramide [From Reglan] Adverse Reaction (Intermediate, Verified 06/27/23 09:24) Involuntary Spasms Medication List - Last Reconciled 06/27/23 by Haleigh Adames CNM ascorbate calcium (vitamin C) 1 g PO Q6H aspirin 81 mg PO DAILY cholecalciferol (vitamin D3) 25 mcg PO DAILY famotidine 40 mg PO DAILY 90 days pantoprazole 40 mg PO DAILY promethazine 25 mg PO TID PRN prucalopride (Motegrity) 2 mg (2 x 1 mg) PO DAILY 30 days rosuvastatin (Crestor) 40 mg PO DAILY sucralfate 1 g PO TID 30 days Is last menstrual period known: Yes Last menstrual period: 05/31/23 Post menopausal: No HPI New patient Annual HPI Details 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 She has a history of delivering vaginally and she had her tubes tied after the of her last child. She normally gets regular periods but does note that they are getting a little unusual lately in that 1 time she had a period 2 weeks after she had just had a period she generally tries to keep track but not always. 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 She had normal mammograms in the past but had to reschedule this years and will probably be getting it in July. She shares a car with her son so transportation needs need to be taking care of. She is very self educated about health issues and her health in particular she has a history of gastroparesis which was made worse after she had surgery to remove clots in her heart when she had her heart attack and she thinks that the vagal nerve was impacted in the the procedure she is on 2 different antacids and vitamin-D and baby aspirin and cholesterol meds she sees Gastroenterology and Cardiology and her primary care provider she has been told she has hypothyroid however her nu mbers were within normal limits and she was told she did not need treatment she gets lots of leg cramps at night and has been thinking about taking magnesium but still is researching and is concerned about the GI side effects. She does occasionally get hot flashes and she wonders if she is closer to menopause she is 47 years old. She has a fiance but they have not been sexually active in recent times which is more of a concern for him then her she finds she really isn't interested. [facility] Medical History (Updated 06/27/23 @ 10:31 by Haleigh Adames CNM) Gastroparesis History of myocardial infarction Encounter to establish care Heart attack Surgical History Hx of colonoscopy Hx of cardiac catheterization History of esophagogastroduodenoscopy (EGD) S/P tubal ligation S/P tonsillectomy Family History Mother Hypertension CHF (congestive heart failure) Afib Rheumatoid arthritis Father Hypertension High cholesterol Social History (Updated 02/07/23 @ 12:31 by Anabell Singh PA-C) Housing: House Alcohol intake: never Patient Tobacco Use Status: Former Tobacco user Years Smoked: stopped in 2015, pt uses marijuanna for pain e-Cigarette/Vaping Use: Never Used Second Hand Smoke Exposure: No Substance Use Type: Marijuana service: No Current occupational status: employed Current occupation: [email or web address] Cognitive needs: No Hearing needs: No Vision needs: Yes Female Reproductive History Menstrual Age of Menarche: 13 Duration of menses: 6-7 days Date of last menstrual period: 05/31/23 control method: other (tubal ligation) Total pregnancies: 3 Full term: 2 Number of Living Children: 2 Ab spontaneous: 1 History of abnormal pap smear: Yes (+HPV) Date of Mammogram: 01/12/22 Physical Exam Vital Signs: BMI result Body Mass Index 22.0 Const General: healthy appearing, comfortable, no acute distress, well developed and alert Nutritional Appearance: average body habitus Orientation/consciousness: patient oriented x3 Limitations: no limitations HEENT Head: Yes normocephalic Neck Neck: Yes normal visual inspection Thyroid: Thyroid normal Chest Chest palpation & inspection: normal inspection of the chest Breast/axilla inspection: normal inspection of the breasts and normal inspection of the axillae Breast/axilla palpation: normal palpation of the breasts and normal palpation of the axillae Resp Effort & Inspection: normal respiratory effort GI Inspection: Yes normal to inspection, No Abdominal wall edema and No distended Palpation (GI): Soft to palpation and nontender Other: Condyloma not seen on this visit the patient says she does have 1. Vagina pink and moist cervix multiparous pink firm mobile nontender uterus small anteverted mobile nontender adnexa nontender not enlarged. Fairly good tone with sustained Kegel. General: Yes bladder normal to palpation External Female Exam: normal external appearance and normal appearance of the urethra Speculum Exam - Vagina: normal appearance of the vagina, normal palpation and normal vaginal discharge Speculum Exam - Cervix: normal appearance of the cervix, normal palpation and nontender Bimanual exam- vagina & uterus: normal bimanual exam, normal palpation, uterine size normal, bladder normal to palpation, consistency normal, normal palpation, uterine mobility normal, uterine shape normal, No Cervical tenderness present, non-tender and no cervical motion tenderness Bimanual Exam- Adnexa, other: normal adnexae, no masses, normal and No adnexal tenderness Neuro General: patient oriented x3 Assessment & Plan Assessment & Plan (1) Gastroparesis: Code(s): K31.84 - Gastroparesis (2) History of myocardial infarction: Code(s): I25.2 - Old myocardial infarction (3) Well woman exam with routine gynecological exam: Code(s): Z01.419 - Encounter for gynecological examination (general) (routine) without abnormal findings (4) Cervical cancer screening: Comment: 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 Pap done 06/27/23. 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 She has a history of delivering vaginally and she had her tubes tied after the of her last child. She normally gets regular periods but does note that they are getting a little unusual lately in that 1 time she had a period 2 weeks after she had just had a period she generally tries to keep track but not always. 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 She had normal mammograms in the past but had to reschedule this years and will probably be getting it in July. She shares a car with her son so transportation needs need to be taking care of. She is very self educated about health issues and her health in particular she has a history of gastroparesis which was made worse after she had surgery to remove clots in her heart when she had her heart attack and she thinks that the vagal nerve was impacted in the the procedure she is on 2 different antacids and vitamin-D and baby aspirin and cholesterol meds she sees Gastroenterology and Cardiology and her primary care provider she has been told she has hypothyroid however her numbers were within normal limits and she was told she did not need treatment she gets lots of leg cramps at night and has been thinking about taking magnesium but still is researching and is concerned about the GI side effects. She does occasionally get hot flashes and she wonders if she is closer to menopause she is 47 years old. She has a fiance but they have not been sexually active in recent times w cecilia is more of a concern for him then her she finds she really isn't interested. Discussed all of the above issues patient is going to continue research and consult with other providers about calcium and magnesium sources in is relation to the other meds she is on and the GI side effects. Recommend continuing keeping track of her menses some aberrations of cycle can be within normal limits but if there was ever anything to investigate having history of dates would be helpful. She will be scheduling her mammogram after the beginning of the year. Reviewed the normal and challenging symptoms of menopause and what to expect going forward Pap smear was done as well as testing for gonorrhea chlamydia trichomoniasis Gardnerella and Samantha. She felt she had no need of any other testing such as HIV or other STIs. Orders: Orders Bacterial Vaginosis Panel Today Z11.3 - Encounter for screening for infections with a predominantly sexual mode of transmission CT NG by PCR Today Z11.3 - Encounter for screening for infections with a predominantly sexual mode of transmission Pap Smear Today Z12.4 - Encounter for screening for malignant neoplasm of cervix Coding Level of Care Code New Pt Prev Care 40-64y(46359) Diagnoses Gastroparesis K31.84 History of myocardial infarction I25.2 Well woman exam with routine gynecological exam Z01.419 Cervical cancer screening Z12.4
== END 2023-06-27 10:19 | disposition home or self-care (01) ==
PROVIDERS: PCP Internal Medicine; Visit Provider Advanced Practice Midwife
DX: Z01.419 Encounter for gynecological examination (general) (routine) without abnormal findings (principal)
CPT/HCPCS: 99386

== ENCOUNTER 2023-07-06 13:31 | Outpatient (AMB) | payer OTHER, SELFPAY ==
--- NOTE | 2023-07-06 13:32 | MHC.OFFVIS ---
Intake Intake Visit Reasons: pap result Composition Tile Layer Required: No Allergies Penicillins Allergy (Mild, Verified 06/27/23 09:24) Vomiting codeine Allergy (Verified 06/27/23 09:24) Vomiting metoclopramide [From Reglan] Adverse Reaction (Intermediate, Verified 06/27/23 09:24) Involuntary Spasms Is last menstrual period known: Yes Last menstrual period: 06/30/23 HPI pap result HPI Details This is a telephone visit appointment made this morning to try and convey the results of the Pap smear that were received this morning. Video visit was attempted however patient was at work with other coworkers around so she went into a corner break room so that she could take the information as a phone call. She was not able to connect the text message to connect with the video. I reviewed with her that her Pap smear had come back with high-grade AMINTA with positive HPV., SYLVIA 3. The patient said that in 1 way she was not surprised because she had had HPV at her last Pap 7 years ago but she did not remember any other abnormalities. She had not had a Pap since then until the 1 done last week. I explained to her that the next step is a colposcopy with biopsy with Dr. Velásquez and depending on results of plan of care will be discussed from there. I told her to expect a phone call in the morning about scheduling the colposcopy and if she wishes she can also call when it is convenient time for her in the morning so that there is no delay in scheduling to a convenient time so that follow-up testing can be accomplished. She said she would call but she also may be called in the meantime. I told her to expect a call from [facility] Medical History Gastroparesis History of myocardial infarction Encounter to establish care Heart attack Surgical History Hx of colonoscopy Hx of cardiac catheterization History of esophagogastroduodenoscopy (EGD) S/P tubal ligation S/P tonsillectomy Family History Mother Hypertension CHF (congestive heart failure) Afib Rheumatoid arthritis Father Hypertension High cholesterol Social History Housing: House Alcohol intake: never Patient Tobacco Use Status: Former Tobacco user Years Smoked: stopped in 2015, pt uses marijuanna for pain e-Cigarette/Vaping Use: Never Used Second Hand Smoke Exposure: No Substance Use Type: Marijuana service: No Current occupational status: employed Current occupation: [employer] Cognitive needs: No Hearing needs: No Vision needs: Yes Female Reproductive History Menstrual Age of Menarche: 13 Date of last menstrual period: 06/30/23 control method: permanent sterilization Results Reviewed Results Reviewed: Name: Lynsey Berry Age/Sex: 47/F Attending: Haleigh Adames CNM : 1975 Submitted by: Haleigh Adames CNM Copies to: Maranda Modi MD MR #: [id number] Status: DEP REF Collected: 06/27/23 Location: [facility] Received: 06/28/23 Interpretation General Category: Epithelial cell abnormality. Adequacy: Endocervical component present. Interpretation: High grade squamous intraepithelial lesion (SYLVIA 3). HPV mRNA E6/E7: DETECTED This assay detects E6/E7 viral messenger RNA (mRNA) from 14 high-risk HPV types (16, 18, 31, 33, 35, 39, 45, 51, 52, 56, 58, 59, 66, 68) HPV Type 16 RNA: DETECTED HPV Type 18/45 RNA: Not Detected HPV testing performed by [facility], [place], [place]. See reference laboratory portion of the EMR for entire report. This case was reviewed intradepartmentally; results were discussed with Haleigh Adames on 07/06/2023. Clinical Information LMP: 05/31/23 Previous PAP test: Unknown date/findings Material Received ThinPrep-Cervical Copies To Haleigh Adames [address] [place] [address] Maranda Modi MD [address] [place] [address] [address] [place] [address] Electronically Signed By: Orlando Barcenas MD 07/06/23 6117 Patient: Lynsey Berry Age/Sex: 47/F MR#: [id number] Page 1 of 2 Gynecologic Cytology [id number] The Pap Test is a screening procedure with the inherent possibility of both false negative and false positive results. Results should be interpreted in the context of historic and current clinical findings. Reliability of the Pap Test is enhanced by performing the test on a regular repetitive basis. Patient: Lynsey Berry Age/Sex: 47/F MR#: [id number] Assessment & Plan Assessment & Plan (1) HGSIL (high grade squamous intraepithelial lesion) on Pap smear of cervix: Comment: Previous Pap elsewhere 7 years ago with positive HPV. 06/27/2023 Pap= HGSIL, w Pos HPV. pt needs colpo/ bx w MZ. Code(s): R87.613 - High grade squamous intraepithelial lesion on cytologic smear of cervix (HGSIL) Plan This is a telephone visit appointment made this morning to try and convey the results of the Pap smear that were received this morning. Video visit was attempted however patient was at work with other coworkers around so she went into a corner break room so that she could take the information as a phone call. She was not able to connect the text message to connect with the video. I reviewed with her that her Pap smear had come back with high-grade AMINTA with positive HPV., SYLVIA 3. The patient said that in 1 way she was not surprised because she had had HPV at her last Pap 7 years ago but she did not remember any other abnormalities. She had not had a Pap since then until the 1 done last week. I explained to her that the next step is a colposcopy with biopsy with Dr. Velásquez and depending on results of plan of care will be discussed from there. I told her to expect a phone call in the morning about scheduling the colposcopy and if she wishes she can also call when it is convenient time for her in the morning so that there is no delay in scheduling to a convenient time so that follow-up testing can be accomplished. She said she would call but she also may be called in the meantime. I told her to expect a call from [facility]. Coding Level of Care Code Tele Est Pt Level 3 (93532) Diagnoses HGSIL (high grade squamous intraepithelial lesion) on Pap smear of cervix R87.613
== END 2023-07-06 15:50 | disposition home or self-care (01) ==
LOC: HO.HWS 13:31
PROVIDERS: PCP Internal Medicine; Visit Provider Advanced Practice Midwife
DX: R87.613 High grade squamous intraepithelial lesion on cytologic smear of cervix (HGSIL) (principal)
CPT/HCPCS: 99213

== ENCOUNTER → 2023-07-06 13:31 | Outpatient (BNVA) | payer OTHER, SELFPAY | PROVIDERS: PCP Internal Medicine; Visit Provider Advanced Practice Midwife ==

== ENCOUNTER 2023-07-11 11:53 | Outpatient (AMB) | payer OTHER, SELFPAY ==
--- NOTE | 2023-07-11 12:02 | A.OFFVIS_ITS ---
Intake Vital Signs 07/11/23 12:13 Height 6 ft Weight 160 lb 14.999 oz BMI 21.8 BP 122/86 Intake Visit Reasons: colposcopy Pharmacovigilance Specialist Required: No Information Interpreted: non-clinical & clinical Car Sales Consultant: Car Sales Consultant Present Accompanied by: Self / Same As Patient Allergies Penicillins Allergy (Mild, Verified 07/11/23 12:13) Vomiting codeine Allergy (Verified 07/11/23 12:13) Vomiting metoclopramide [From Reglan] Adverse Reaction (Intermediate, Verified 07/11/23 12:13) Involuntary Spasms Is last menstrual period known: Yes Last menstrual period: 06/28/23 HPI HPI Comments History of Present Illness Details Presenting for abnormal Pap smear showing high-grade AMINTA HPV E6/E7 positive, HPV 16 positive, HPV 18/45 negative PFSH Medical History Gastroparesis History of myocardial infarction Encounter to establish care Heart attack Surgical History Hx of colonoscopy Hx of cardiac catheterization History of esophagogastroduodenoscopy (EGD) S/P tubal ligation S/P tonsillectomy Family History Mother Hypertension CHF (congestive heart failure) Afib Rheumatoid arthritis Father Hypertension High cholesterol Social History Housing: House Alcohol intake: never Patient Tobacco Use Status: Former Tobacco user Years Smoked: stopped in 2015, pt uses marijuanna for pain e-Cigarette/Vaping Use: Never Used Second Hand Smoke Exposure: No Substance Use Type: Marijuana service: No Current occupational status: employed Current occupation: [employer] Cognitive needs: No Hearing needs: No Vision needs: Yes Female Reproductive History Menstrual Age of Menarche: 13 Date of last menstrual period: 06/28/23 Review of Systems Const All systems reviewed & are unremarkable except as noted in HPI and below Reports as per HPI and Reports no additional complaints GI Reports no additional complaints Reports no additional complaints Physical Exam Vital Signs: Last Vital Signs BP 122/86 07/11/23 12:13 BMI result Body Mass Index 21.8 Office Procedures Colposcopy Before the procedure was started discussed with the patient the procedure, alternatives & all the risks associated with the procedure (bleeding, infection, injury to vagina, bladder, vessels, possible need for transfusion with all its risks) then patient signed the consent UPT done in the office & negative Pap smear = high-grade AMINTA, HPV 16 positive, HPV E6/E7 positive, HPV 18/45 negative Speculum inserted, acetic acid used Colposcopy done Transformation zone seen, acetowhite lesions identified at 5+7+9+10+12+1+3 o?clock, cervical biopsies taken from 5+7+9+10+12+1 o?clock, ECC done afterwards. Vaginoscopy of the upper vagina showed no evidence of any aceto-white lesions Monsel solution used for hemostasis. The patient tolerated well . At the end the patient was instructed to call if temp>100.4, abdominal pain, n/v, bleeding; The patient was given the following instructions: nothing per vagina, no intercourse or bath tub use. All questions answered the patient verbalized understanding. Instructed the patient to make an appointment in 2 weeks for follow-up This note was generated with a voice recognition program. Some errors may have been overlooked during the review of this note. Sometimes these errors may affect the content or meaning of a given sentence. [id number]-[id number] of cervix including upper vagina with biopsy and ECC Procedure code (CPT) selection complete Results AMB Test Urine AMB Test Urine Negative Last Edit by Emely Echeverria CMA on 12:15 Results Reviewed Results Reviewed: Laboratory Last Values [facility]st Clinic Negative 07/11/23 12:14 Assessment & Plan Assessment & Plan (1) HGSIL (high grade squamous intraepithelial lesion) on Pap smear of cervix: Code(s): R87.613 - High grade squamous intraepithelial lesion on cytologic smear of cervix (HGSIL) Plan: Discussed with the patient the result of her abnormal pap, its significance, risk of progression, persistence, and regression if untreated. the false positive/negative rate being a screening test, the indication for diagnostic test -colposcopy, biopsy, endocervical curettage. The patient verbalized understanding and agreed with the plan, all questions answered. Orders: Orders AMB Colposcopy Today R87.613 - High grade squamous intraepithelial lesion on cytologic smear of cervix (HGSIL) AMB HCG Urine Test Today Z32.02 - Encounter for test, result negative Coding Level of Care Code Procedure Only Diagnoses HGSIL (high grade squamous intraepithelial lesion) on Pap smear of cervix R87.613 CPT Codes Colposcopy - CPT: 68220-Fpojdtust of cervix including upper vagina with biopsy and ECC ([id number])
[2023-07-11 12:13] VITALS: BP 122/86; BMI 21.8
== END 2023-07-11 12:35 | disposition home or self-care (01) ==
PROVIDERS: PCP Internal Medicine; Visit Provider Obstetrics & Gynecology
DX: Z32.02 Encounter for pregnancy test, result negative (principal); R87.613 High grade squamous intraepithelial lesion on cytologic smear of cervix (HGSIL)
CPT/HCPCS: 57454

== ENCOUNTER 2023-07-11 11:53 | Outpatient (REF) | payer OTHER, SELFPAY | END 2023-07-11 11:54 | disposition home or self-care (01) | LOC: HO.LNP 11:53 | PROVIDERS: PCP Internal Medicine; Visit Provider Obstetrics & Gynecology | DX: R87.613 High grade squamous intraepithelial lesion on cytologic smear of cervix (HGSIL) (principal) | CPT/HCPCS: 57454; 81025; 88305 ==

== ENCOUNTER 2023-07-14 11:39 | Outpatient (AMB) | payer OTHER, SELFPAY ==
--- NOTE | 2023-07-14 11:51 | A.OFFVIS_ITS ---
Intake Intake Visit Reasons: vaginal odor [place] Guide Required: No Allergies Penicillins Allergy (Mild, Verified 07/14/23 11:52) Vomiting codeine Allergy (Verified 07/14/23 11:52) Vomiting metoclopramide [From Reglan] Adverse Reaction (Intermediate, Verified 07/14/23 11:52) Involuntary Spasms Medication List - Last Reconciled 07/14/23 by Haleigh Adames CNM ascorbate calcium (vitamin C) 1 g PO Q6H aspirin 81 mg PO DAILY cholecalciferol (vitamin D3) 25 mcg PO DAILY famotidine 40 mg PO DAILY 90 days metronidazole 0.75%(37.5mg/5gram) 1 appful vaginal BEDTIME 5 days pantoprazole 40 mg PO DAILY promethazine 25 mg PO TID PRN prucalopride (Motegrity) 2 mg (2 x 1 mg) PO DAILY 30 days rosuvastatin (Crestor) 40 mg PO DAILY sucralfate 1 g PO TID 30 days HPI vaginal odor HPI Details This is a tele visit to discuss patient's symptoms of really bad vaginal odor and some external itching that she is experiencing after having a colposcopy with biopsy for SYLVIA 3 on 07/11/[address] Velásquez. She is not having any fever chills or lower abdominal pain that is in any way different from the initial cramping she had the day after the procedure which has resolved. [facility] Medical History Gastroparesis History of myocardial infarction Encounter to establish care Heart attack Surgical History Hx of colonoscopy Hx of cardiac catheterization History of esophagogastroduodenoscopy (EGD) S/P tubal ligation S/P tonsillectomy Family History Mother Hypertension CHF (congestive heart failure) Afib Rheumatoid arthritis Father Hypertension High cholesterol Social History Housing: House Alcohol intake: never Patient Tobacco Use Status: Former Tobacco user Years Smoked: stopped in 2016, pt uses marijuanna for pain e-Cigarette/Vaping Use: Never Used Second Hand Smoke Exposure: No Substance Use Type: Marijuana service: No Current occupational status: employed Current occupation: [employer] Cognitive needs: No Hearing needs: No Vision needs: Yes Female Reproductive History Menstrual Age of Menarche: 13 control method: other (tubal ligation) Results Reviewed Results Reviewed: SYLVIA 3 on Pap (and biopsy results.) Patient has follow-up visit with Dr. Velásquez July 26 and plan of care to be discussed.. Assessment & Plan Assessment & Plan (1) HGSIL (high grade squamous intraepithelial lesion) on Pap smear of cervix: Code(s): R87.613 - High grade squamous intraepithelial lesion on cytologic smear of cervix (HGSIL) (2) Vaginal odor: Comment: post colpo and bx, no fever or systemic sx Code(s): N89.8 - Other specified noninflammatory disorders of vagina Plan Reviewed her experience and her understanding of the plan thus far and her symptoms in great detail. She denies any fever chills lower abdominal pain or anything that would be reminiscent to her of an infectious process she says the odor is very unpleasant. And she has some vaginal itching at the introitus that reminds her of the 1st time she had a yeast infection she has been wearing pads of necessity because of the discharge post biopsy. I reviewed with her what to do if she did experience any symptoms an infection going on such as chills fever lower abdominal tenderness. If she did experience any of these she would need to go to the emergency room. In the absence of this and just with the vaginal odor and the external itching I am offering to her treatment with metronidazole pills to take twice a day for 1 week and also I offered treatment free yeast and I offered her both p.o. treatment with Diflucan and external Monistat cream should she desire to use it she thinks at this point she would prefer the oral medication because of using the pads and the discharge but I sent the prescription for the cream so she has it available to her should she desire some topical relief as well. In the meantime she knows what to do if she experiences any fever or chills or worsening pain and she will keep her appointment with Dr. Velásquez on July 26.. Medications: New fluconazole may repeat second dose 72 hrs after first dose if symptoms persist 150 mg PO Q3D 2 doses 2 tabs 0RF metronidazole 500 mg PO Q12H 14 tabs 0RF miconazole nitrate 2% (Miconazole-7) 1 appful vaginal BEDTIME 7 days 45 grams 3RF Telehealth Telehealth Location of provider rendering services: practice address Location of patient: other (work) Patient Identification confirmed using: Name, : Yes Telehealth method: video Patient verbally consented to treatment: Yes Patient verbally consented to billing insurance company: Yes Patient informed of any privacy concerns related to visit: Yes Coding Level of Care Code Tele Est Pt Level 3 (89079) Diagnoses HGSIL (high grade squamous intraepithelial lesion) on Pap smear of cervix R87.613 Vaginal odor N89.8
== END 2023-07-14 13:09 | disposition home or self-care (01) ==
LOC: HO.HWSM 11:39
PROVIDERS: PCP Internal Medicine; Visit Provider Advanced Practice Midwife
DX: R87.613 High grade squamous intraepithelial lesion on cytologic smear of cervix (HGSIL) (principal); N89.8 Other specified noninflammatory disorders of vagina
CPT/HCPCS: 99213

== ENCOUNTER → 2023-07-14 11:39 | Outpatient (BNVA) | payer OTHER, SELFPAY | PROVIDERS: PCP Internal Medicine; Visit Provider Advanced Practice Midwife ==

== ENCOUNTER 2023-08-01 09:46 | Outpatient (AMB) | payer OTHER, SELFPAY ==
[2023-08-01 09:52] VITALS: BP 110/72; BMI 21.8
--- NOTE | 2023-08-01 09:52 | A.OFFVIS_ITS ---
Intake Vital Signs 08/01/23 09:52 Height 6 ft Weight 160 lb 14.999 oz BMI 21.8 BP 110/72 Intake Visit Reasons: colpo results Strap Sewer Required: No Information Interpreted: non-clinical & clinical Business Development Executive: Business Development Executive Present Accompanied by: Spouse Allergies Penicillins Allergy (Mild, Verified 07/14/23 11:52) Vomiting codeine Allergy (Verified 07/14/23 11:52) Vomiting metoclopramide [From Reglan] Adverse Reaction (Intermediate, Verified 07/14/23 11:52) Involuntary Spasms Is last menstrual period known: Yes Last menstrual period: 05/21/20 Post menopausal: No Patient : No Do you need a note to return to daycare/school/sports/work: Yes (for surgery on monday) HPI HPI Comments History of Present Illness Details Presenting post colpo for follow-up. The patient is doing well with no complaints. The pathology showed the following: A. Cervix, 1 o'clock, biopsy: - High grade squamous intraepithelial le breanna (SYLVIA 3), involving glands. - Endocervical epithelium within normal limits. B. Cervix, 3 o'clock, biopsy: - High grade squamous intraepithelial le breanna (SYLVIA 3), involving glands - Endocervical epithelium within normal limits. C. Cervix, 5 o'clock, biopsy: - High grade squamous intraepithelial le breanna (SYLVIA 2), involving glands - Endocervical epithelium within normal limits. D. Cervix, 7 o'clock, biopsy: - High grade squamous intraepithelial le breanna (SYLVIA 3). - Endocervical epithelium within normal limits. E. Cervix, 9 o'clock, biopsy: - High grade squamous intraepithelial le breanna (SYLVIA 2), involving glands - Background inflamed cervical transform ation zone mucosa. F. Cervix, 10 o'clock, biopsy: - High grade squamous intraepithelial le breanna (SYLVIA 3). - Endocervical epithelium within normal limits. G. Cervix, 12 o'clock, biopsy: - High grade squamous intraepithelial le breanna (SYLVIA 3), involving glands - Endocervical epithelium within normal limits. H. Endocervix, curettage: - High grade squamous intraepithelial le breanna (SYLVIA 3). - Endocervical epithelium within normal limits [facility] Medical History Gastroparesis History of myocardial infarction Encounter to establish care Heart attack Surgical History Hx of colonoscopy Hx of cardiac catheterization History of esophagogastroduodenoscopy (EGD) S/P tubal ligation S/P tonsillectomy Family History Mother Hypertension CHF (congestive heart failure) Afib Rheumatoid arthritis Father Hypertension High cholesterol Social History Housing: House Alcohol intake: never Patient Tobacco Use Status: Former Tobacco user Years Smoked: stopped in 2016, pt uses marijuanna for pain e-Cigarette/Vaping Use: Never Used Second Hand Smoke Exposure: No Substance Use Type: Marijuana service: No Current occupational status: employed Current occupation: [employer] Cognitive needs: No Hearing needs: No Vision needs: Yes Female Reproductive History Menstrual Age of Menarche: 13 Date of last menstrual period: 05/21/20 Total pregnancies: 2 Full term: 2 Review of Systems Card Reports as per HPI and Reports no additional complaints Resp Reports as per HPI and Reports no additional complaints GI Reports as per HPI and Reports no additional complaints Reports as per HPI Physical Exam Vital Signs: Last Vital Signs BP 110/72 08/01/23 09:52 BMI result Body Mass Index 21.8 Const General: cooperative, healthy appearing and comfortable Chest Chest palpation & inspection: normal inspection of the chest and normal palpa tion of entire chest wall Breast/axilla inspection: normal inspection of the breasts and normal inspection of the axillae Breast/axilla palpation: normal palpation of the breasts, normal palpation of the axillae and no axillary lymphadenopathy Resp Effort & Inspection: normal respiratory effort Auscultation: clear to auscultation bilaterally Percussion: percussion normal Cardio Palpation: normal PMI Rate: regular rate Rhythm: regular rhythm Heart sounds: no murmurs and no rubs Peripheral pulses: Peripheral pulses 2+ throughout GI Inspection: Yes normal to inspection Palpation (GI): Soft to palpation, nontender, no guarding, not rigid and No hepatosplenomegaly present Percussion: Yes normal to percussion Auscultation: normal bowel sounds Rectal Exam - Female: deferred Assessment & Plan Assessment & Plan (1) 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 Discussed with the patient the procedure, its benefits and risks including bleeding, infection, possible need for blood transfusion with all its risk ( HIV, syphilis, Hepatitis, anaphylaxis shock, others..), injury to bladder, rectum, possible re-excision for positive margins, potential need for hysterectomy, possible future negative impact on fertility including ( cervical stenosis, incompetence , increase risk for c section 2ndary to cervical scarring and failure of dilatation), possible positive margin necessitating re-excision. Also discussed the patient options of anesthesia either paracervical block versus IV sedation/MAC, prefers to proceed with IV sedation/MAC. Since the patient has history of MRI at age of 31, recommend patient to schedule appointment with her home lighting adviser for preop medical clearance, pending clearance with schedule the procedure. All questions answered, the patient verbalized understanding and signed the consent. 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
== END 2023-08-01 10:15 | disposition home or self-care (01) ==
LOC: HO.HWS 09:46
PROVIDERS: PCP Internal Medicine; Visit Provider Obstetrics & Gynecology
DX: D06.9 Carcinoma in situ of cervix, unspecified (principal)
CPT/HCPCS: 99213

== ENCOUNTER → 2023-08-01 09:46 | Outpatient (BNVA) | payer OTHER, SELFPAY | PROVIDERS: PCP Internal Medicine; Visit Provider Obstetrics & Gynecology | DX: D06.9 Carcinoma in situ of cervix, unspecified (principal) | CPT/HCPCS: 99212 ==

== ENCOUNTER 2023-08-07 15:31 | Outpatient (AMB) | payer OTHER, SELFPAY ==
[2023-08-07 15:39] VITALS: BP 120/82; PULSE 82; BMI 21.9
--- NOTE | 2023-08-07 15:39 | A.OFFVIS_ITS ---
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: No Allergies Penicillins Allergy (Mild, Verified 08/07/23 15:41) Vomiting codeine Allergy (Verified 08/07/23 15:41) Vomiting metoclopramide [From Reglan] Adverse Reaction (Intermediate, Verified 08/07/23 15:41) Involuntary Spasms Medication List - Last Reconciled 08/07/23 by Connie Deleon NP-C ascorbate calcium (vitamin C) 1 g PO Q6H aspirin 81 mg PO DAILY cholecalciferol (vitamin D3) 25 mcg PO DAILY famotidine 40 mg PO DAILY 90 days fluconazole 150 mg PO Q3D 2 doses miconazole nitrate 2% (Miconazole-7) 1 appful vaginal BEDTIME 7 days pantoprazole 40 mg PO DAILY rosuvastatin (Crestor) 40 mg PO DAILY HPI Clearance/Removal stage 3 cancer cells/ HPI Details Lynsey is a 47-year-old female with past medical history of smoking, acute myocardial infarction while in [place] approximately 9 years ago. She had developed sudden-onset chest discomfort with radiation into her left arm, nausea and vomiting. She was initially treated with thrombolytics in the emergency room which failed and then she was airlifted to a hospital in [place] where she underwent emergent cardiac catheterization and what seems like thrombectomy. She did not have stent placement. She was told she had some residual myocardial damage. An echocardiogram done following last visit and she now presents for follow-up. Today she reports that she has been feeling well with no concerning symptoms. She has not had any recurrent chest discomfort like she did at the time of her RI. she has no chest discomfort at rest or with activity. No shortness of aditya ath, palpitations, lightheadedness, presyncope, syncope, PND, orthopnea or edema. She reports good activity tolerance. She can climb 2 flights of stairs without any concerning symptoms. She takes her medications as directed. She reports having precancerous cells and will need to have a LEEP procedure in the near future. [facility] Medical History Gastroparesis History of myocardial infarction Encounter to establish care Heart attack Surgical History Hx of colonoscopy Hx of cardiac catheterization History of esophagogastroduodenoscopy (EGD) S/P tubal ligation S/P tonsillectomy Family History Mother Hypertension CHF (congestive heart failure) Afib Rheumatoid arthritis Father Hypertension High cholesterol Social History Housing: House Alcohol intake: never Patient Tobacco Use Status: Former Tobacco user Years Smoked: stopped in 2015, pt uses marijuanna for pain e-Cigarette/Vaping Use: Never Used Second Hand Smoke Exposure: No Substance Use Type: Marijuana service: No Current occupational status: employed Current occupation: [employer] Cognitive needs: No Hearing needs: No Vision needs: Yes Female Reproductive History Menstrual Age of Menarche: 13 Review of Systems Const All systems reviewed & are unremarkable except as noted in HPI and below ENT Denies dizziness Card Denies chest pain, Denies chest pain at rest, Denies chest pain with activity, Denies rapid heart rate, Denies pedal edema, Denies edema, Denies leg edema, Denies lightheadedness, Denies palpitations, Denies dyspnea, Denies dyspnea on exertion and Denies orthopnea Resp Denies cough, Denies dyspnea and Denies dyspnea on exertion GI Denies hematochezia and Denies change in stool character Musc Denies abnormal gait, Denies limited range of motion, Denies muscle cramps, D enies muscle weakness, Denies numbness, Denies radiating pain into limb, Denies stiffness and Denies tingling Neuro Denies abnormal gait, Denies dizziness, Denies numbness and Denies tingling Endo Denies palpitations Physical Exam Vital Signs: Last Vital Signs Pulse 82 08/07/23 15:39 BP 120/82 08/07/23 15:39 BMI result Body Mass Index 21.9 Const General: cooperative, healthy appearing, comfortable and no acute distress Orientation/consciousness: patient oriented x3 Neck Neck: Yes normal visual inspection and Yes no JVD Resp Effort & Inspection: normal respiratory effort Auscultation: clear to auscultation bilaterally, no crackles, no rales, no rhonchi and no wheezes Cardio Jugular venous distension: no JVD Rate: regular rate Rhythm: regular rhythm Heart sounds: S1 normal heart sound present, S2 normal heart sound present, no murmurs and no rubs Neuro General: patient oriented x3 Extrem General: Yes normal to inspection, No no pedal edema and No calf tenderness Psych Appearance: grossly normal Mental Status: mental status grossly normal Speech and movement: Normal speech and movement present Office Procedures EKG Details: Today, read by me, normal sinus rhythm, low-voltage QRS, can not exclude prior inferior infarct, can not exclude prior anterior infarct, rate 82, QTC 486, no significant change from prior EKG. [id number], Complete Assessment & Plan Assessment & Plan (1) History of myocardial infarction: Code(s): I25.2 - Old myocardial infarction Plan: Taken from last note by Dr. Montoya Patient with prior history of myocardial infarction, exact etiology is not clear. This could be either acute plaque rupture/erosion causing a thrombotic event, spontaneous clotting disorder due to hypercoagulable state, spontaneous coronary artery dissection, vasospastic disease or an embolic event. Exact etiology is not clear at this point in time. Will suggest her to have workup for hypercoagulable state. Most likely cause for acute coronary syndrome usually he is acute plaque rupture/erosion and therefore would continue with guideline directed medical therapy. Patient did have clotting studies, in our system showing no significant findings. Since the time of her RI, approximately 9 years ago she has not had any recurrent clotting issues or cardiac events. She denies any anginal sounding symptoms. EKG done on 11/01/2022 shows normal sinus rhythm, evidence of possible inferior and anterior infarct, rate 83. Echocardiogram done 11/15/2022 showing EF 50%, apex akinetic, basal inferior and basal inferior lateral segments hypokinetic, no valve abnormality. An EKG done today shows normal sinus rhythm, again can not exclude prior inferior and anterior infarct, rate 82. She has no concerning symptoms at this time. Will have her continue aspirin 81 mg daily indefinitely. Continue Crestor 40 mg daily with ideal LDL goal less than 70. Labs done on 01/31/2023 showed LDL 63. She quit smoking many years ago. Ongoing risk factor modification reviewed. Cardiology follow-up in 6 months, sooner if needed. (2) Hx of cardiac cath: Code(s): Z98.890 - Other specified postprocedural states Plan: Record not on file. Done in [place]. (3) HTN (hypertension): Code(s): I10 - Essential (primary) hypertension Plan: Well controlled at this time. No medication changes made. (4) Preop cardiovascular exam: Code(s): Z01.810 - Encounter for preprocedural cardiovascular examination Plan: Preop for LEEP procedure with Dr. Christen gayle in the near future. Patient tells me she wants this done under general anesthesia. She is low to intermediate cardiac risk. Cardiac history as above. She has no reports of anginal symptoms. Aspirin could be held if needed for the procedure. Continue statin. Call/consult Cardiology if needed Plan Time spent on chart review, documentation, interview and assessment Coding Level of Care Code Est Pt Level 4 (79946) Diagnoses History of myocardial infarction I25.2 Hx of cardiac cath Z98.890 HTN (hypertension) I10 Preop cardiovascular exam Z01.810 CPT Codes EKG - CPT: [id number], Complete ([id number]) Time Spent (min) 28
== END 2023-08-07 16:22 | disposition home or self-care (01) ==
PROVIDERS: PCP Internal Medicine; Visit Provider Nurse Practitioner Family
DX: I25.2 Old myocardial infarction (principal); Z98.890 Other specified postprocedural states; I10 Essential (primary) hypertension
CPT/HCPCS: 93010; 99214

== ENCOUNTER → 2023-08-07 15:31 | Outpatient (BNVA) | payer OTHER, SELFPAY | PROVIDERS: PCP Internal Medicine; Visit Provider Nurse Practitioner Family | DX: Z01.810 Encounter for preprocedural cardiovascular examination (principal); I25.2 Old myocardial infarction; I10 Essential (primary) hypertension; Z98.890 Other specified postprocedural states | CPT/HCPCS: 93005; 99212 ==

== ENCOUNTER 2023-08-11 12:42 | Day surgery (SDC) | payer OTHER, SELFPAY ==
--- NOTE | 2023-08-09 10:53 | P.CONAN_ITS ---
Documented by User: Lynsey Liu NP 08/09/23 10:59 HPI - Anesthesia Eval Consult details Narrative: 47yo F for LEEP,poss loop electric excision,poss loop electrical,cone and post endocervical curettage Cardiac cleared (Pt with hx of STEMI 2016 - cath/likely thrombectomy, but rec ords not available for review. 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 (Acute) Vaginal odor (Acute) HGSIL (high grade squamous intraepithelial lesion) on Pap smear of cervix (Acute) Well woman exam with routine gynecological exam (Acute) Gastroparesis (Acute) Abdominal pain, chronic, epigastric (Acute) Tubular adenoma (Acute) Skin lesion (Acute) Physical exam (Acute) Tick bite (Acute) SMAS (superior mesenteric artery syndrome) (Acute) HTN (hypertension) (Acute) GERD (gastroesophageal reflux disease) (Acute) Hyperlipidemia (Acute) Hypothyroidism (Acute) Screening for diabetes mellitus (Acute) Gastritis (Acute) Low vitamin D level (Acute) Screening for breast cancer (Acute) Lower back pain (Acute) Left hand pain (Acute) Adult general medical exam (Acute) Cervical cancer screening (Acute) Hx of cardiac cath (Acute) Toenail fungus (Acute) Ingrown toenail of right foot (Acute) History of thyroid nodule (Acute) Hemorrhoids (Acute) History of myocardial infarction (Acute) Past Medical History Medical History Gastroparesis History of myocardial infarction Encounter to establish care Heart attack Family History Family History Mother Hypertension CHF (congestive heart failure) Afib Rheumatoid arthritis Father Hypertension High cholesterol Family history of problems with anesthesia: No Surgical History Surgical History Hx of colonoscopy Hx of cardiac catheterization History of esophagogastroduodenoscopy (EGD) S/P tubal ligation S/P tonsillectomy History of Problems with Anesthesia: No Social History Social History Housing: House Alcohol intake: never Patient Tobacco Use Status: Former Tobacco user Years Smoked: stopped in 2016, pt uses marijuanna for pain e-Cigarette/Vaping Use: Never Used Second Hand Smoke Exposure: No Use of substances other than those prescribed or required for medical reasons: Yes Substance Use Type: Marijuana Are you DNR?: No Advance Directives: No Advance Directives Information Provided: Yes service: No Current occupational status: employed Current occupation: [employer] Cognitive needs: No Hearing needs: No Vision needs: Yes Meds Allergies Allergy/AdvReac Type Severity Reaction Status Date / Time Penicillins Allergy Mild Vomiting Verified 08/11/23 13:59 codeine Allergy Vomiting Verified 08/11/23 13:59 metoclopramide [From Reglan] AdvReac Intermediate Involuntary Verified 08/11/23 13:59 Spasms Home Medications Medication Instructions Recorded Confirmed Last Taken Type aspirin 81 mg tablet,delayed 81 mg PO DAILY 01/05/22 08/11/23 12/25/22 History release ascorbate calcium (vitamin C) 500 1 g PO Q6H 02/02/23 08/11/23 Unknown History mg tablet Exam Narrative Narrative: EKG 07/2023 normal sinus rhythm, low-voltage QRS, can not exclude prior inferior infarct, can not exclude prior anterior infarct, rate 82, QTC 486, no significant change from prior EKG. ECHO 10/2022 Conclusions: - Mildly increased left ventricular cavity size. - The left ventricular systolic function is mildly decreased. The calculated ejection fraction is 50% by biplane method. - The apex segment is akinetic. - The basal inferior and basal inferolateral segments are hypokinetic. - No obvious valvular pathology seen on this study. - The inferior vena cava is dilated and collapses greater than 50% with inspiration. Assessment and Plan Assessment Anesthesia Assessment: Chart Reviewed Final Anesthetic Review Family History of Problems with Anesthesia: No History of Problems with Anesthesia: No Documented by User: Andrew Boucher MD 08/11/23 15:05 [facility] Past Medical History Medical History Gastroparesis History of myocardial infarction Encounter to establish care Heart attack Patient : No Family History Family History Mother Hypertension CHF (congestive heart failure) Afib Rheumatoid arthritis Father Hypertension High cholesterol Surgical History Surgical History Hx of colonoscopy Hx of cardiac catheterization History of esophagogastroduodenoscopy (EGD) S/P tubal ligation S/P tonsillectomy Social History Social History Housing: House Alcohol intake: never Patient Tobacco Use Status: Former Tobacco user Years Smoked: stopped in 2015, pt uses marijuanna for pain e-Cigarette/Vaping Use: Never Used Second Hand Smoke Exposure: No Use of substances other than those prescribed or required for medical reasons: Yes Substance Use Type: Marijuana Are you DNR?: No Advance Directives: No Advance Directives Information Provided: Yes service: No Current occupational status: employed Current occupation: [employer] Cognitive needs: No Hearing needs: No Vision needs: Yes Meds Allergies Allergy/AdvReac Type Severity Reaction Status Date / Time Penicillins Allergy Mild Vomiting Verified 08/11/23 13:59 codeine Allergy Vomiting Verified 08/11/23 13:59 metoclopramide [From Reglan] AdvReac Intermediate Involuntary Verified 08/11/23 13:59 Spasms Active Medications: o Home Medications Medication Instructions Recorded Confirmed Last Taken Type aspirin 81 mg tablet,delayed 81 mg PO DAILY 01/05/22 08/11/23 12/25/22 History release ascorbate calcium (vitamin C) 500 1 g PO Q6H 02/02/23 08/11/23 Unknown History mg tablet Exam Airway Mallampati Class: II TM Dist: >3cm Neck ROM: Full Denture: Upper and Lower Heart: see echo report Lungs: ok Assessment and Plan Assessment Anesthesia Assessment: Anesthesia Plan Discussed Final Anesthetic Review NPO: Yes ASA Class: III Final Preanesthetic Review: No Changes in Pt Med Stat, Meds/Allgs Chart Reviewed, Consent Obtained/Reviewed and Anes Risks/Benef Reviewed Patient Risk: Intermediate Procedure Risk: Low Anesthetic Plan Anesthetic Plan: GA and Agree w/ Assess. and Plan Disposition: Standard PACU
[2023-08-11 14:02] VITALS: BMI 21.7
[2023-08-11 14:14] VITALS: BP 142/88; PULSE 75; RESP 16; TEMP 36.9; O2SAT 99
--- NOTE | 2023-08-11 14:45 | MHC.SHP ---
Pre-Procedural Eval Section A Date of Service: 08/11/23 The patient is an INPATIENT: No Changes since office visit: No Cold of Flu in the past 2 weeks, No New Medical Problems, No Changes in Medication and No Patient answered all questions The History & Physical has been completed within 30 days and I have reviewed it.: Yes Section B Chief Complaint: Carcinoma in situ of cervix, unspecified Allergies: Allergies Allergy/AdvReac Type Severity Reaction Status Date / Time Penicillins Allergy Mild Vomiting Verified 08/11/23 13:59 codeine Allergy Vomiting Verified 08/11/23 13:59 metoclopramide [From Reglan] AdvReac Intermediate Involuntary Verified 08/11/23 13:59 Spasms Plan Diagnosis/Plan: Unchanged I have reviewed the history and physical and performed a pertinent physical examination on my patient. No changes have occurred unless specified. Time Spent With Patient Time: Total time managing care of this patient today ____ minutes.
[2023-08-11 14:47] LABS: UPreg QC Valid YES; Urine Pregnancy NEGATIVE (NEGATIVE)
[2023-08-11] MEDS: Lactated Ringers 1,000 ML 100 ML IVCONT (14:51)
--- NOTE | 2023-08-11 15:26 | P.BOP_ITS ---
Brief Operative Note Date of Service: 08/11/23 Pre-op diagnosis: SYLVIA 3 with positive ECC Post-op diagnosis: same Procedure: Pre op diagnosis: SYLVIA 3 with positive ECC Operation: Colposcopy, Loop electrical excision procedure cone, top hat en docervical excision, post cone ECC Postop diagnosis: the same Quantitative blood loss: 50 cc Surgeon: Alejo Velásquez MD, FACOG Stereotype Finisher: None Pathology: Cervical cone, top-hat endo cervical excision, endo cervical curettage Complications: none Anesthesia: MAC and Para cervical block Procedure: The patient was put in a dorsal lithotomy position, scrubbed and draped in the usual sterile fashion. A speculum was inserted inside the patient's vagina. The cervix is assessed using the colposcope with acetic acid , the lesions were seen, and at least 1 cm of the squamocolumnar junction was observed. 20 x 5 mm size loop was selected based upon the diameter of the lesion. Lugol solution was used to outline the lesions and area of the transformation zone order to be removed 10 cc of xylocaine with epinephrine were injected submucosally into the surface of the cervix (ectocervix) at the 3, 6, 9, and 12 o'clock positions. The electrosurgical generator is set at 40 ramos on blend 1. The loop is carefully passed simultaneously around and under the transformation zone, in order to ensure excising it making sure the lesion is at least 5 mm far from the specimen margins . The loop was allowed to glide through the cervix from one side to the other, allowing the cutting current to divide the tissue. Since ECC was positive, endo cervical disease could be beyond the reach of the loop, additional tissue was excised from this area with a smaller-diameter loop , endo cervical top-hat excision was performed An endo cervical curettage is performed following completion of excision, and hemostasis is obtained with a Ball electrode or regular tip cautery. At the end, Monsel's solution was applied to the cone bed. The patient tolerated the procedure well and, all instruments were taken out of the patient vaginal cavity, and the patient was transferred to the PACU in stable condition. Surgeon: Alejo Velásquez MD Was an Stereotype Finisher used for this Procedure?: No Estimated blood loss (mL): 10
--- NOTE | 2023-08-11 15:28 | PM.OP ---
Brief Operative Note Date of Service: 08/11/23 Pre-op diagnosis: SYLVIA 3 with positive ECC Post-op diagnosis: same Procedure: LEEP CONE with post CONE ECC Surgeon: Alejo Velásquez MD Anesthesia: GLMA and other (Paracervical block) Was an Maintenance Service Technician used for this Procedure?: No Estimated blood loss (mL): 0 Pathology: other (Cervical cone, top-hat, Post cone ECC) Condition: stable Disposition: other (Home)
[2023-08-11 15:35] VITALS: BP 100/56; PULSE 64; RESP 16; TEMP 36.4; O2SAT 97
[2023-08-11 15:40] VITALS: BP 112/74; PULSE 74; RESP 16; O2SAT 98
[2023-08-11 15:45] VITALS: BP 125/85; PULSE 91; RESP 16; O2SAT 100
[2023-08-11 15:50] VITALS: BP 127/84; PULSE 78; RESP 16; O2SAT 100
[2023-08-11 16:05] VITALS: BP 144/93; PULSE 83; RESP 16; TEMP 36.5; O2SAT 100
== END 2023-08-11 16:26 | disposition home or self-care (01) ==
PROVIDERS: PCP Internal Medicine; Visit Provider Obstetrics & Gynecology
PROC: 0UBC7ZZ Excision of Cervix, Via Natural or Artificial Opening (ICD-10-PCS; CPT 57522; principal; 2023-08-11 15:00)
DX: D06.9 Carcinoma in situ of cervix, unspecified (principal); I10 Essential (primary) hypertension; E78.5 Hyperlipidemia, unspecified; I25.2 Old myocardial infarction; F12.90 Cannabis use, unspecified, uncomplicated; Z87.891 Personal history of nicotine dependence; Z79.82 Long term (current) use of aspirin; Z79.02 Long term (current) use of antithrombotics/antiplatelets; Z79.899 Other long term (current) drug therapy
CPT/HCPCS: 57461; 81025; 88305; 88307; 88342; 88360; J1885; J2405; J2704; J3010

== ENCOUNTER → 2023-08-11 12:42 | Outpatient (BNV) | payer OTHER, SELFPAY | PROVIDERS: PCP Internal Medicine; Visit Provider Obstetrics & Gynecology | DX: D06.9 Carcinoma in situ of cervix, unspecified (principal) | CPT/HCPCS: 57461 ==

== ENCOUNTER 2023-08-24 15:50 | Outpatient (AMB) | payer OTHER, SELFPAY ==
--- NOTE | 2023-08-24 15:54 | A.OFFVIS_ITS ---
Intake Vital Signs 08/24/23 15:59 Height 6 ft Weight 162 lb BMI 22.0 BP 110/70 Intake Visit Reasons: post op Manager Coding: Manager Coding Present Allergies Penicillins Allergy (Mild, Verified 08/11/23 13:59) Vomiting codeine Allergy (Verified 08/11/23 13:59) Vomiting metoclopramide [From Reglan] Adverse Reaction (Intermediate, Verified 08/11/23 13:59) Involuntary Spasms Is last menstrual period known: Yes Last menstrual period: 05/21/20 Post menopausal: No Patient : No Do you need a note to return to daycare/school/sports/work: Yes (for surgery on monday) HPI HPI Comments History of Present Illness Details Presenting 2 weeks post cone with post cone ECC, doing well with no complaints except for vaginal discharge with foul odor. The pathology showed the following: A. Cervix, cone excision: - High-grade squamous intraepithelial le breanna (SYLVIA 3), extending to endocervical margin. - Endocervical epithelium within normal limits. B. Cervix, top hat, excision: Mildly inflamed endocervical and squamous mucosa; otherwise within normal limits. C. Endocervix, post cone, curettage: Cervical transformation zone mucosa within normal limits PFSH Medical History Gastroparesis History of myocardial infarction Encounter to establish care Heart attack Surgical History Hx of colonoscopy Hx of cardiac catheterization History of esophagogastroduodenoscopy (EGD) S/P tubal ligation S/P tonsillectomy Family History Mother Hypertension CHF (congestive heart failure) Afib Rheumatoid arthritis Father Hypertension High cholesterol Social History Housing: House Alcohol intake: never Patient Tobacco Use Status: Former Tobacco user Years Smoked: stopped in 2016, pt uses marijuanna for pain e-Cigarette/Vaping Use: Never Used Second Hand Smoke Exposure: No Substance Use Type: Marijuana service: No Current occupational status: employed Current occupation: [employer] Cognitive needs: No Hearing needs: No Vision needs: Yes Female Reproductive History Menstrual Age of Menarche: 13 Date of last menstrual period: 05/21/20 Total pregnancies: 2 Full term: 2 Review of Systems Card Reports as per HPI and Reports no additional complaints Resp Reports as per HPI and Reports no additional complaints GI Reports as per HPI and Reports no additional complaints Reports as per HPI Physical Exam Vital Signs: Last Vital Signs BP 110/70 08/24/23 15:59 BMI result Body Mass Index 22.0 Const General: cooperative, healthy appearing and comfortable Resp Effort & Inspection: normal respiratory effort Auscultation: clear to auscultation bilaterally Percussion: percussion normal Cardio Palpation: normal PMI Rate: regular rate Rhythm: regular rhythm Heart sounds: no murmurs and no rubs Peripheral pulses: Peripheral pulses 2+ throughout GI Inspection: Yes normal to inspection Palpation (GI): Soft to palpation, nontender, no guarding, not rigid and No hepatosplenomegaly present Percussion: Yes normal to percussion Auscultation: normal bowel sounds Rectal Exam - Female: deferred Assessment & Plan Assessment & Plan (1) 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 Recurrence can occur years after treatment; Recommended repeat LEEP cone with post cone ECC versus hysterectomy. All the pros and cons and risks and benefits each were discussed with the patient and the patient decided to proceed with re-excision LEEP cone with post cone ECC preop Will proceed with LEEP cone was post cone ECC. Discussed with the patient the procedure, its benefits and risks including bleeding, infection, possible need for blood transfusion with all its risk ( HIV, syphilis, Hepatitis, anaphylaxis shock, others..), injury to bladder, rectum, possible need for hysterectomy, possible future negative impact on fertility including ( cervical stenosis, incompetence , increase risk for c section 2ndary to cervical scarring and failure of dilatation). Also discussed the patient options of anesthesia either paracervical block versus IV sedation/MAC, prefers to proceed with IV sedation/MAC. All questions answered, the patient verbalized understanding and signed the consent. (2) Bacterial vaginosis: Code(s): N76.0 - Acute vaginitis; B96.89 - Other specified bacterial agents as the cause of diseases classified elsewhere Plan: Will treat with Flagyl 500 mg p.o. b.i.d. x 7 days, Instructions given to the patient to refrain from sexual activity or to use condoms consistently and correctly during the BV treatment regimen, not to douch, it might increase the risk for relapse, and to call if symptoms persist or recur. 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
[2023-08-24 15:59] VITALS: BP 110/70; BMI 22.0
== END 2023-08-24 16:20 | disposition home or self-care (01) ==
LOC: HO.HWS 15:50
PROVIDERS: PCP Internal Medicine; Visit Provider Obstetrics & Gynecology
DX: D06.9 Carcinoma in situ of cervix, unspecified (principal); N76.0 Acute vaginitis; B96.89 Other specified bacterial agents as the cause of diseases classified elsewhere
CPT/HCPCS: 99213

== ENCOUNTER → 2023-08-24 15:50 | Outpatient (BNVA) | payer OTHER, SELFPAY | PROVIDERS: PCP Internal Medicine; Visit Provider Obstetrics & Gynecology | DX: D06.9 Carcinoma in situ of cervix, unspecified (principal); N76.0 Acute vaginitis; B96.89 Other specified bacterial agents as the cause of diseases classified elsewhere; Z98.890 Other specified postprocedural states | CPT/HCPCS: 99212 ==

== ENCOUNTER 2023-10-06 12:04 | Day surgery (SDC) | payer OTHER, SELFPAY ==
[2023-10-04 10:28] VITALS: BMI 22.0
[2023-10-06 12:32] VITALS: BMI 22.1
[2023-10-06 12:37] VITALS: BP 115/71; PULSE 72; RESP 15; TEMP 36.7; O2SAT 100
[2023-10-06 12:47] LABS: UPreg QC Valid YES; Urine Pregnancy NEGATIVE (NEGATIVE)
[2023-10-06] MEDS: Lactated Ringers 1,000 ML 50 ML IVCONT (12:48)
--- NOTE | 2023-10-06 13:11 | MHC.SHP ---
Pre-Procedural Eval Section A - 24 Hr Update-Section A only Date of Service: 10/06/23 The patient is an INPATIENT: No Changes since office visit: No Cold of Flu in the past 2 weeks, No New Medical Problems, No Changes in Medication and No Patient answered all questions The patient has been examined within 24 hours of the surgical procedure. The History & Physical has been completed within 30 days and I have reviewed it.: Yes Section B - Complete if H&P > 30 days Chief Complaint: Carcinoma in situ of cervix, unspecified Allergies: Allergies Allergy/AdvReac Type Severity Reaction Status Date / Time Penicillins Allergy Mild Vomiting Verified 10/06/23 12:31 codeine Allergy Vomiting Verified 10/06/23 12:31 metoclopramide [From Reglan] AdvReac Intermediate Involuntary Verified 10/06/23 12:31 Spasms Plan Diagnosis/Plan: Unchanged I have reviewed the history and physical and performed a pertinent physical examination on my patient. No changes have occurred unless specified. Time Spent With Patient Time: Total time managing care of this patient today ____ minutes.
--- NOTE | 2023-10-06 13:15 | HO.ANESPROP2 ---
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 (Acute) Vaginal odor (Acute) HGSIL (high grade squamous intraepithelial lesion) on Pap smear of cervix (Acute) Well woman exam with routine gynecological exam (Acute) Abdominal pain, chronic, epigastric (Acute) Tubular adenoma (Acute) Skin lesion (Acute) Physical exam (Acute) Tick bite (Acute) SMAS (superior mesenteric artery syndrome) (Acute) Hemorrhoids (Acute) History of thyroid nodule (Acute) Ingrown toenail of right foot (Acute) Toenail fungus (Acute) Hx of cardiac cath (Acute) Cervical cancer screening (Acute) Adult general medical exam (Acute) Left hand pain (Acute) Lower back pain (Acute) Screening for breast cancer (Acute) Low vitamin D level (Acute) Gastritis (Acute) Screening for diabetes mellitus (Acute) Hypothyroidism (Acute) Hyperlipidemia (Acute) GERD (gastroesophageal reflux disease) (Acute) HTN (hypertension) (Acute) Gastroparesis (Acute) History of myocardial infarction (Acute) Past Medical History Medical History (Updated 10/06/23 @ 12:53 by Kelley Church, RN) Lower back pain Thyroid nodule Soto's disease Elevated cholesterol GERD (gastroesophageal reflux disease) History of myocardial infarction Encounter to establish care Heart attack Gastroparesis Patient : No Family History Family History Mother Hypertension CHF (congestive heart failure) Afib Rheumatoid arthritis Father Hypertension High cholesterol Family history of problems with anesthesia: No Surgical History Surgical History S/P LEEP (08/11/23) Hx of colonoscopy Hx of cardiac catheterization History of esophagogastroduodenoscopy (EGD) S/P tubal ligation S/P tonsillectomy History of Problems with Anesthesia: No Social History Social History Housing: House Alcohol intake: never Patient Tobacco Use Status: Former Tobacco user Quit Date: 9 yrs ago Years Smoked: stopped in 2016, pt uses marijuanna for pain e-Cigarette/Vaping Use: Never Used Second Hand Smoke Exposure: No Use of substances other than those prescribed or required for medical reasons: Yes Substance Use Type: Marijuana Substance Use Type Other:: smoked and edible Substance Use Frequency: Daily Are you DNR?: No Advance Directives: No Advance Directives Information Provided: Yes service: No Current occupational status: employed Current occupation: [employer] Cognitive needs: No Hearing needs: No Vision needs: Yes Meds Allergies Allergy/AdvReac Type Severity Reaction Status Date / Time Penicillins Allergy Mild Vomiting Verified 10/06/23 12:31 codeine Allergy Vomiting Verified 10/06/23 12:31 metoclopramide [From Reglan] AdvReac Intermediate Involuntary Verified 10/06/23 12:31 Spasms Active Medications: Current Medications Lactated Ringer's (Lr) 1,000 mls @ 50 mls/hr IVCONT .Q20H [place] Last Admin: 10/06/23 12:48 Dose: 50 mls/hr Home Medications Medication Instructions Recorded Confirmed Last Taken Type aspirin 81 mg tablet,delayed 81 mg PO DAILY 01/05/22 10/06/23 10/05/23 History release ascorbate calcium (vitamin C) 500 1 g PO Q6H 02/02/23 10/06/23 Unknown History mg tablet Exam Height,Weight and Vital Signs: Height 6 ft Weight 73.936 kg Last Vital Signs Temp 98.0 F 10/06/23 12:37 Pulse 72 10/06/23 12:37 Resp 15 10/06/23 12:37 BP 115/71 10/06/23 12:37 Pulse Ox 100 10/06/23 12:37 O2 Del Method Room Air 10/06/23 12:37 Pertinent Lab Results Pertinent Lab Results: Laboratory Tests 10/06/23 12:25 Urine Test NEGATIVE Airway Mallampati Class: I TM Dist: >3cm Neck ROM: Full Denture: Upper and Lower Heart: ok Lungs: ok Assessment and Plan Assessment Anesthesia Assessment: Anesthesia Plan Discussed and Chart Reviewed Final Anesthetic Review Family History of Problems with Anesthesia: No History of Problems with Anesthesia: No NPO: Yes ASA Class: II Final Preanesthetic Review: No Changes in Pt Med Stat, Meds/Allgs Chart Reviewed, Consent Obtained/Reviewed and Anes Risks/Benef Reviewed Patient Risk: Low Procedure Risk: Low Anesthetic Plan Anesthetic Plan: GA and Agree w/ Assess. and Plan Disposition: Standard PACU
--- NOTE | 2023-10-06 14:12 | P.BOP_ITS ---
Brief Operative Note Date of Service: 10/06/23 Pre-op diagnosis: SYLVIA 3 with positive endocervical margins on previous LEEP Post-op diagnosis: same Procedure: LEEP CONE with post CONE ECC Surgeon: Alejo Velásquez MD Anesthesia: GLMA and other (Paracervical block) Was an Belt Maker Helper used for this Procedure?: No Estimated blood loss (mL): 0 Pathology: other (Cervical cone, endocervix, Post cone ECC) Condition: stable Disposition: other (Home)
--- NOTE | 2023-10-06 14:13 | P.OP_ITS ---
Operative Note Operative Note Date of Service: 10/06/23 Narrative: Pre op diagnosis: SYLVIA 3 with positive endocervical margins on previously Operation: Colposcopy, Loop electrical excision procedure cone, endocervical excision, post cone ECC Postop diagnosis: the same Quantitative blood loss: 50 cc Surgeon: Alejo Velásquez MD, FACOG Armored Car Guard And Driver: None Pathology: Cervical cone, endocervical excision, endo cervical curettage Complications: none Anesthesia: GLMA and Para cervical block Procedure: The patient was put in a dorsal lithotomy position, scrubbed and draped in the usual sterile fashion. A speculum was inserted inside the patient's vagina. The cervix is assessed using the colposcope with acetic acid , the lesions were seen, and at least 1 cm of the squamocolumnar junction was observed. 20 x 5 mm size loop was selected based upon the diameter of the lesion. Lugol solution was used to outline the lesions and area of the transformation zone order to be removed 10 cc of xylocaine with epinephrine were injected submucosally into the surface of the cervix (ectocervix) at the 3, 6, 9, and 12 o'clock positions. The electrosurgical generator is set at 40 ramos on blend 1. The loop is carefully passed simultaneously around and under the transformation zone, in order to ensure excising it making sure the lesion is at least 5 mm far from the specimen margins . The loop was allowed to glide through the cervix from one side to the other, allowing the cutting current to divide the tissue. Since previous LEEP endocervical margins were positive additional endocervical tissue was excised from this area with a smaller-diameter loop , endo cervical excision was performed An endo cervical curettage is performed following completion of excision, and hemostasis is obtained with a Ball electrode or regular tip cautery. At the end, Monsel's solution was applied to the cone bed. The patient tolerated the procedure well and, all instruments were taken out of the patient vaginal cavity, and the patient was transferred to the PACU in stable condition.
[2023-10-06 14:20] VITALS: BP 96/59; PULSE 65; RESP 16; TEMP 36.4; O2SAT 98
[2023-10-06 14:25] VITALS: BP 102/61; PULSE 87; RESP 16; O2SAT 100
[2023-10-06 14:30] VITALS: BP 115/74; PULSE 97; RESP 16; O2SAT 100
[2023-10-06 14:35] VITALS: BP 120/80; PULSE 87; RESP 16; O2SAT 100
[2023-10-06 14:50] VITALS: BP 117/75; PULSE 86; RESP 16; TEMP 36.4; O2SAT 100
== END 2023-10-06 15:41 | disposition home or self-care (01) ==
PROVIDERS: PCP Internal Medicine; Visit Provider Obstetrics & Gynecology
PROC: 0UBC7ZZ Excision of Cervix, Via Natural or Artificial Opening (ICD-10-PCS; CPT 57522; principal; 2023-10-06 13:40)
DX: D06.9 Carcinoma in situ of cervix, unspecified (principal); K31.84 Gastroparesis; I25.2 Old myocardial infarction; I10 Essential (primary) hypertension; E78.00 Pure hypercholesterolemia, unspecified; E06.3 Autoimmune thyroiditis; E55.9 Vitamin D deficiency, unspecified; Z79.82 Long term (current) use of aspirin; Z79.899 Other long term (current) drug therapy; Z88.0 Allergy status to penicillin; Z88.5 Allergy status to narcotic agent; Z98.51 Tubal ligation status; Z87.891 Personal history of nicotine dependence
CPT/HCPCS: 57461; 81025; 88305; 88307; J1885; J2405; J2704; J3010

== ENCOUNTER → 2023-10-06 12:04 | Outpatient (BNV) | payer OTHER, SELFPAY | PROVIDERS: PCP Internal Medicine; Visit Provider Obstetrics & Gynecology | DX: D06.9 Carcinoma in situ of cervix, unspecified (principal) | CPT/HCPCS: 57461 ==

== ENCOUNTER 2023-11-01 12:51 | Outpatient (AMB) | payer OTHER, SELFPAY ==
[2023-11-01 12:54] VITALS: BMI 22.1
--- NOTE | 2023-11-01 12:54 | A.OFFVIS_ITS ---
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 The patient is doing well with no complaints. The pathology showed the following: A. Cervix, cone excision: Mildly inflamed squamous mucosa; otherwise within normal limits; no endocervical epithelium identified. B. Endocervix, LEEP excision: Inflamed cervical transformation zone mucosa with reactive changes. C. Endocervix, post cone curettage: Superficial fragments of squamous and focal endocervical epithelium within normal limits PFSH Medical History Lower back pain Thyroid nodule Soto's disease Elevated cholesterol GERD (gastroesophageal reflux disease) History of myocardial infarction Encounter to establish care Heart attack Gastroparesis Surgical History S/P LEEP (08/11/23) Hx of colonoscopy Hx of cardiac catheterization History of esophagogastroduodenoscopy (EGD) S/P tubal ligation S/P tonsillectomy Family History Mother Hypertension CHF (congestive heart failure) Afib Rheumatoid arthritis Father Hypertension High cholesterol Social History Housing: House Alcohol intake: never Patient Tobacco Use Status: Former Tobacco user Quit Date: 9 yrs ago Years Smoked: stopped in 2016, pt uses marijuanna for pain e-Cigarette/Vaping Use: Never Used Second Hand Smoke Exposure: No Substance Use Type: Marijuana service: No Current occupational status: employed Current occupation: [employer] Cognitive needs: No Hearing needs: No Vision needs: Yes Female Reproductive History Menstrual Age of Menarche: 13 Date of last menstrual period: 10/07/23 control method: permanent sterilization Review of Systems Const All systems reviewed & are unremarkable except as noted in HPI and below Reports as per HPI and Reports no additional complaints GI Reports no additional complaints Reports no additional complaints Physical Exam Vital Signs: BMI result Body Mass Index 22.1 Assessment & Plan Assessment & Plan (1) 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 Instructions given to the patient to schedule an HPV based screening in 6 months, if normal then co testing Q year x 3 , if wnl cotest q3 x 25 years check the results and treat accordingly. All questions answered patient verbalized understanding. 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
== END 2023-11-01 12:57 | disposition home or self-care (01) ==
LOC: HO.HWS 12:51
PROVIDERS: PCP Internal Medicine; Visit Provider Obstetrics & Gynecology
DX: D06.9 Carcinoma in situ of cervix, unspecified (principal)
CPT/HCPCS: 99213

== ENCOUNTER → 2023-11-01 12:51 | Outpatient (BNVA) | payer OTHER, SELFPAY | PROVIDERS: PCP Internal Medicine; Visit Provider Obstetrics & Gynecology | DX: D06.9 Carcinoma in situ of cervix, unspecified (principal) | CPT/HCPCS: 99212 ==

== ENCOUNTER 2024-01-22 08:24 | Outpatient (AMB) | payer OTHER, SELFPAY ==
[2024-01-22 08:39] VITALS: BP 118/68; PULSE 79; O2SAT 98; BMI 22.5
--- NOTE | 2024-01-22 08:39 | A.OFFPC_ITS ---
Vital Signs 01/22/24 08:39 Height 6 ft Weight 166 lb BMI 22.5 BP 118/68 Blood Pressure Location Lt brachial Position Sitting Pulse 79 Pulse Source Pulse Oximeter Pulse Oximetry (%) 98 Oxygen Delivery Method Room Air Intake Visit Reasons: Annual Exam Porcelain Turner Required: No Accompanied by: Self / Same As Patient Allergies Penicillins Allergy (Mild, Verified 01/22/24 08:53) Vomiting codeine Allergy (Verified 01/22/24 08:53) Vomiting metoclopramide [From Reglan] Adverse Reaction (Intermediate, Verified 01/22/24 08:53) Involuntary Spasms Medication List - Last Reconciled 01/22/24 by Maranda Valladares MD ascorbate calcium (vitamin C) 1 g PO Q6H aspirin 81 mg PO DAILY cholecalciferol (vitamin D3) 25 mcg PO DAILY famotidine 40 mg PO DAILY 90 days pantoprazole 40 mg PO DAILY rosuvastatin (Crestor) 40 mg PO DAILY Tobacco use date assessed: 01/22/24 Dental Screening Dental Screen Date: 01/22/24 Did you have a dental visit in the last 12 months?: No Did you have a dental problem in the last 6 months where you did not have access to dental care?: No Was dental information given to patient?: No HPI HPI Comments History of Present Illness Details This is a 48-year-old female with mild major depression that comes for her physical exam. Depression is very mild NSAIDs no need for counseling or medication at the moment. Last mammogram was 2021 and I will order another mammogram. Pap smear was 2022. Colonoscopy was 2022 showing tubular adenoma. She complains of thoracic spine pain and right hip pain that started few months ago. Also has bilateral leg swelling more prominent in the right associated with pain and ultrasound will be done today to rule out DVT. [facility] Medical History (Updated 01/22/24 @ 09:43 by Maranda Valladares MD) SMAS (superior mesenteric artery syndrome) Lower back pain Thyroid nodule Soto's disease Elevated cholesterol GERD (gastroesophageal reflux disease) History of myocardial infarction Encounter to establish care Heart attack Gastroparesis Surgical History S/P LEEP (08/11/23) Hx of colonoscopy Hx of cardiac catheterization History of esophagogastroduodenoscopy (EGD) S/P tubal ligation S/P tonsillectomy Family History (Updated 01/22/24 @ 08:57 by Maranda Valladares MD) Mother Hypertension CHF (congestive heart failure) Afib Rheumatoid arthritis AA (aortic aneurysm) Father Hypertension High cholesterol Social History Housing: House Alcohol intake: never Patient Tobacco Use Status: Former Tobacco user Tobacco use type: Cigarette Years Smoked: stopped in 2016, pt uses marijuanna for pain e-Cigarette/Vaping Use: Never Used Second Hand Smoke Exposure: No Substance Use Type: Marijuana service: No Current occupational status: employed Current occupation: [employer] Cognitive needs: No Hearing needs: No Vision needs: Yes Female Reproductive History Menstrual Age of Menarche: 13 Questionnaire PHQ-9 Over the last 2 weeks, how often have you been bothered by any of the following problems? 1. Little interest or pleasure in doing things: several days 2. Feeling down, depressed, or hopeless: several days 3. Trouble falling or staying asleep, or sleeping too much: not at all 4. Feeling tired or having little energy: several days 5. Poor appetite or overeating: not at all 6. Feeling bad about yourself - or that you are a failure or have let yourself or your family down: several days 7. Trouble concentrating on things, such as reading the newspaper or watching television: several days 8. Moving or speaking so slowly that other people could have noticed. Or the opposite - being so fidgety or restless that you have been moving around a lot more than usual: not at all 9. Thoughts that you would be better off or of hurting yourself in some way: not at all Total score: 5 Depression Screening Interpretation: Positive Depression Screening Follow-up: Existing condition and Follow-up Visit Requested Depression Screening Done: Yes 36269 - PHQ-9 Billing: Yes Source: Developed by Drs. Kendrick Flynn, Renata Rosales, Latrell Xiong and colleagues, with an educational vance from [employer]. Thrive Questionnaire Date Thrive assessed: 01/22/24 I am a: Patient What is your living situation today?: I have a steady place to live Within the past 12 months, did the food you bought not last and you didn't have the money to get more?: Never true Within the past 12 months, did you worry whether your food would run out before you got money to buy more?: Never true Do you have trouble paying for medicines?: No Do you have trouble getting transportation to medical appointments?: No Do you have trouble paying your heating and electricity bill?: No Do you have trouble taking care of your child, family member or friend?: No Do you have trouble with day-to-day activities such as bathing, preparing meals, shopping, managing finances, etc.?: No Are you currently unemployed and looking for a job?: No Are you interested in more education?: No Currently or been in a relationship where the following occur: No concerns reported THRIVE Score: 0 AUDIT C Alcohol Use Questionnaire (AUDIT-C) 1. How often do you have a drink containing alcohol?: Never 3. How often do you have six or more drinks on one occasion?: Never Total Score: 0 Score Reviewed/Action Taken: No RICHELLE-7 AMB Questionnaire RICHELLE-7 Date RICHELLE - 7 assessed: 01/22/24 Feeling nervous, anxious, or on edge: 1 = Several days Not being able to stop or control worryin = Not at all Worrying too much about different things: 0 = Not at all Trouble relaxin = Not at all Being so restless that it is hard to sit still: 0 = Not at all Becoming easily annoyed or irritable: 0 = Not at all Feeling afraid as if something awful might happen: 0 = Not at all Total RICHELLE-7 score (0-4 normal; 5-9 mild; 10-14 moderate; 15-21 severe): 1 Source: Developed by Drs. Kendrick Flynn, Renata Rosales, Latrell Xiong and colleagues, with an educational vance from [employer]. Review of Systems Const All systems reviewed & are unremarkable except as noted in HPI and below ENT Denies change in voice, Denies nasal discharge and Denies sinus pain Card Denies chest pain at rest, Reports chest pain with activity, Denies edema, Denies irregular heart rhythm, Denies claudication, Denies dyspnea, Denies dyspnea on exertion, Denies orthopnea, Denies paroxysmal nocturnal dyspnea and Denies slow heart rate Resp Denies cough, Denies dyspnea and Denies dyspnea on exertion GI Denies abdominal pain, Denies change in bowel habits, Denies excessive flatus, Denies nausea and Denies vomiting Musc Reports back pain, Reports arthralgias, Reports joint swelling and Reports radiating pain into limb Physical exam (Primary Care) Vital Signs: Last Vital Signs Pulse 79 01/22/24 08:39 BP 118/68 01/22/24 08:39 Pulse Ox 98 01/22/24 08:39 Oxygen Delivery Method Room Air 01/22/24 08:39 BMI result Body Mass Index 22.5 Tobacco/Smoking Status: Tobacco use Status Tobacco use date assessed 01/22/24 01/22/24 08:45 Patient Tobacco Use Status Former Tobacco user 01/22/24 08:45 Tobacco use type Cigarette 01/22/24 08:45 e-Cigarette/Vaping Use Never Used 01/22/24 08:45 PHQ-9: PHQ-9 Score PHQ-9: Total score 5 01/22/24 08:58 Depression Screening Interpretation: Positive Depression Screening Follow-up: Existing condition and Follow-up Visit Requested Thrive Assessment: Date of Thrive Assessment Date Thrive assessed 01/22/24 01/22/24 08:45 Currently or been in a relationship where the following occur: No concerns reported Const Orientation/consciousness: patient oriented x3 HENMT Head: Yes normal to inspection, Yes normocephalic and Yes atraumatic Ears: external ears normal Eyes General: appearance normal, both eyes and all related structures Eyelids: Yes eyelids normal Conjunctivae: conjunctivae normal Neck Neck: Yes normal visual inspection and Yes supple Resp Effort & Inspection: normal respiratory effort Auscultation: clear to auscultation bilaterally Cardio Jugular venous distension: no JVD Rate: regular rate Rhythm: regular rhythm Heart sounds: S1 normal heart sound present and S2 normal heart sound present GI Inspection: Yes normal to inspection Palpation (GI): Soft to palpation and nontender Auscultation: normal bowel sounds Skin General skin exam: no rashes or lesions noted Neuro General: patient oriented x3 and no focal motor deficits Extrem General: Yes full ROM Psych Appearance: grossly normal Assessment and Plan Assessment & Plan (1) Physical exam: Code(s): Z00.00 - Encounter for general adult medical examination without abnormal findings Plan: Repeat in a year. (2) Thoracic spine pain: Code(s): M54.6 - Pain in thoracic spine Plan: X-ray ordered. Referred to pain management. (3) Right hip pain: Code(s): M25.551 - Pain in right hip Plan: X-ray ordered. Referred to pain management. (4) Mild major depression: Code(s): F32.0 - Major depressive disorder, single episode, mild Plan: Follow-up visit requested. No need for counseling or medication at the moment. Orders: Orders Lipid Panel Today E78.5 - Hyperlipidemia, unspecified Vitamin D 25-OH Total Today E55.9 - Vitamin D deficiency, unspecified Thyroid Stimulating Hormone Today E03.9 - Hypothyroidism, unspecified ECG 12 lead EKG Today R07.9 - Chest pain, unspecified XR hip RT min 2V Today M25.551 - Pain in right hip US venous duplex LE BI Today M79.604 - Pain in right leg, M79.605 - Pain in left leg Comprehensive Kendrick. Panel Fast Today Z00.00 - Encounter for general adult medical examination without abnormal findings MM screening mammo BI Today Z12.31 - Encounter for screening mammogram for malignant neoplasm of breast XR thoracic spine 2V Today M54.6 - Pain in thoracic spine Referrals Pain Management Referral M25.551 - Pain in right hip, M54.6 - Pain in thoracic spine Coding Level of Care Code Est Pt Level 3 (32547) Est Pt Prev Care 40-64y(16018) Diagnoses Physical exam Z00.00 Thoracic spine pain M54.6 Right hip pain M25.551 Mild major depression F32.0 Time Spent (min) 32
== END 2024-01-22 09:11 | disposition home or self-care (01) ==
PROVIDERS: PCP Internal Medicine; Visit Provider Internal Medicine
DX: Z00.00 Encounter for general adult medical examination without abnormal findings (principal); F32.0 Major depressive disorder, single episode, mild; M54.6 Pain in thoracic spine; M25.551 Pain in right hip
CPT/HCPCS: 99213; 99396

== ENCOUNTER 2024-01-22 09:32 | Outpatient (REF) | payer OTHER, SELFPAY ==
--- NOTE | ~2024-01-22 | US_ITS ---
EXAMINATION: US VENOUS ULTRASOUND WITH DOPPLER LOWER EXTREMITY, BILATERAL CLINICAL INFORMATION: Bilateral lower extremity pain COMPARISON: None available. TECHNIQUE: Ultrasound of the deep veins is performed from the hip to the calf with compression sonography and color and pulse Doppler assessment. Spectral analysis with color-flow imaging is performed. FINDINGS: RIGHT: There is normal venous compression and respiratory variation and augmented flow. The visualized common femoral vein, superficial femoral vein, profunda femoral vein, popliteal vein, and the trifurcation region shows no evidence of deep venous thrombosis. There is no significant popliteal fossa cyst. LEFT: There is normal venous compression and respiratory variation and augmented flow. The visualized common femoral vein, superficial femoral vein, profunda femoral vein, popliteal vein, and the trifurcation region shows no evidence of deep venous thrombosis. There is no significant popliteal fossa cyst. If the patient's symptoms persist, followup ultrasound in 5 days 7 days might be of value to exclude proximal propagation from a non-visualized calf vein. US/US venous duplex LE BI IMPRESSION: No DVT demonstrated in either lower extremity.
== END 2024-01-22 09:33 | disposition home or self-care (01) ==
LOC: HO.US 09:32
PROVIDERS: PCP Internal Medicine; Visit Provider Internal Medicine
DX: M79.604 Pain in right leg (principal); M79.605 Pain in left leg
CPT/HCPCS: 93970

== ENCOUNTER 2024-01-30 11:16 | Outpatient (REF) | payer OTHER, SELFPAY ==
--- NOTE | ~2024-01-30 | MM_ITS ---
EXAMINATION: MM SCREENING DIGITAL BREAST TOMOSYNTHESIS, BILATERAL CLINICAL INFORMATION: Screening. Asymptomatic. COMPARISON: Mammography: This study is compared with prior exams dating back to 2021. TECHNIQUE: Digital breast tomosynthesis is performed in both the craniocaudal and mediolateral oblique views along with computer-aided detection (CAD). Synthesized 2D images are generated from the tomosynthesis. FINDINGS: There are scattered areas of fibroglandular density (ACR BI-RADS breast composition Category b). There is a medially located right breast asymmetry at a middle depth. This warrants additional mammographic and targeted sonographic imaging. In the left breast, there are no significant masses, abnormal calcifications, or other abnormalities. MM/MM tomosynthesis screening BI IMPRESSION: Right breast asymmetry warrants additional mammographic and targeted sonographic imaging. No mammographic signs of malignancy left breast. ASSESSMENT: BI-RADS BI-RADS 0 - Incomplete: Needs additional Imaging. RECOMMENDATION: 1. Additional views of the right breast. 2. Targeted ultrasound if warranted after review of the additional views. 3. Radiology department staff will contact the patient for additional imaging. Additional Imaging required This examination should not preclude the clinical evaluation of a suspicious palpable abnormality. This patient's information was entered into a reminder system with a target due date for their next mammogram.
== END 2024-01-30 11:17 | disposition home or self-care (01) ==
LOC: HO.MAMMO 11:16
PROVIDERS: Visit Provider Internal Medicine
DX: Z12.31 Encounter for screening mammogram for malignant neoplasm of breast (principal)
CPT/HCPCS: 77063; 77067

== ENCOUNTER → 2024-01-30 11:30 | Outpatient (BNV) | payer OTHER, SELFPAY | PROVIDERS: Visit Provider Radiology Diagnostic Radiology | DX: Z12.31 Encounter for screening mammogram for malignant neoplasm of breast (principal) | CPT/HCPCS: 77063; 77067 ==

== ENCOUNTER 2024-02-06 12:58 | Outpatient (AMB) | payer OTHER, SELFPAY ==
[2024-02-06 13:00] VITALS: BP 114/64; PULSE 84; BMI 22.7
--- NOTE | 2024-02-06 13:00 | MHC.OFFVIS ---
Vital Signs 02/06/24 13:00 Height 6 ft Weight 167 lb 8.821 oz BMI 22.7 BP 114/64 Blood Pressure Location Lt brachial Position Sitting Pulse 84 Intake Visit Reasons: 6 mth f/up Intake Note: 6 month follow-up Emergency Room Specialist Required: No Allergies Penicillins Allergy (Mild, Verified 01/22/24 08:53) Vomiting codeine Allergy (Verified 01/22/24 08:53) Vomiting metoclopramide [From Reglan] Adverse Reaction (Intermediate, Verified 01/22/24 08:53) Involuntary Spasms HPI Comments Details: Lynsey comes for follow-up. She has not had any chest pain similar to myocardial infarction with a day-to-day job with exertion. She does get sharp stabbing pain in the upper left side of the chest when she is stressed out usually lasting for 20 seconds unusually improves with deep breath. Pain is very different from her myocardial infarction pain. She is taking all her medications. Last LDL is 64 mg/dL. She complains of leg edema by the end of the day. Denies any significantly elevated blood pressure. Currently not taking any medications for blood pressure. [facility] Medical History SMAS (superior mesenteric artery syndrome) Lower back pain Thyroid nodule Soto's disease Elevated cholesterol GERD (gastroesophageal reflux disease) History of myocardial infarction Encounter to establish care Heart attack Gastroparesis Surgical History S/P LEEP (08/11/23) Hx of colonoscopy Hx of cardiac catheterization History of esophagogastroduodenoscopy (EGD) S/P tubal ligation S/P tonsillectomy Family History Mother Hypertension CHF (congestive heart failure) Afib Rheumatoid arthritis AA (aortic aneurysm) Father Hypertension High cholesterol Social History Housing: House Alcohol intake: never Patient Tobacco Use Status: Former Tobacco user Tobacco use type: Cigarette Years Smoked: stopped in 2015, pt uses marijuanna for pain e-Cigarette/Vaping Use: Never Used Second Hand Smoke Exposure: No Substance Use Type: Marijuana service: No Current occupational status: employed Current occupation: [employer] Cognitive needs: No Hearing needs: No Vision needs: Yes Female Reproductive History Menstrual Age of Menarche: 13 Review of Systems Const Denies chills, Denies fatigue, Denies fever(s), Denies frequent falls, Denies weakness, Denies weight gain and Denies weight loss ENT Denies dizziness Card Denies chest pain, Denies leg edema, Denies lightheadedness, Denies palpitations, Denies dyspnea, Denies dyspnea on exertion, Denies orthopnea and Denies other (loss of consciousness) Resp Denies cough, Denies dyspnea and Denies dyspnea on exertion GI Denies hematochezia and Denies change in stool character Musc Denies abnormal gait, Denies muscle weakness, Denies numbness, Denies radiating pain into limb and Denies tingling Neuro Denies abnormal gait, Denies dizziness, Denies frequent falls, Denies numbness, Denies tingling and Denies weakness Endo Denies fatigue and Denies palpitations Physical Exam Vital Signs: Last Vital Signs Pulse 84 02/06/24 13:00 BP 114/64 02/06/24 13:00 BMI result Body Mass Index 22.7 Const General: cooperative, healthy appearing, comfortable and no acute distress Orientation/consciousness: patient oriented x3 Neck Neck: Yes normal visual inspection and Yes no JVD Resp Effort & Inspection: normal respiratory effort Auscultation: clear to auscultation bilaterally, no crackles, no rales, no rhonchi and no wheezes Cardio Jugular venous distension: no JVD Rate: regular rate Rhythm: regular rhythm Heart sounds: S1 normal heart sound present, S2 normal heart sound present, no murmurs and no rubs Neuro General: patient oriented x3 Extrem General: Yes normal to inspection, No no pedal edema and No calf tenderness Psych Appearance: grossly normal Mental Status: mental status grossly normal Speech and movement: Normal speech and movement present Assessment & Plan Assessment & Plan (1) History of myocardial infarction: Code(s): I25.2 - Old myocardial infarction Category: Medical Plan: Patient with prior myocardial infarction with apical akinesis on echocardiogram with no signs or symptoms of heart failure. Clinically continue guideline based medical therapy with aspirin high-intensity statin therapy. LDL is well optimized continue monitor lipids on a regular basis. Goal LDL less than 70 mg/dL. Her current symptoms of chest pain appear to be musculoskeletal in nature she does not require any further workup at this point time. Advised to call me with any change in her symptoms. Her leg edema appear to be related to her job where she stands for many hours a day. Advise compression venous stockings. Continue monitor blood pressure intermittently at home. At least annual lipid check. Will follow up in the clinic 1 year's time, sooner p.r.n.. Thank you for allowing me to partake in her care Coding Level of Care Code Est Pt Level 4 (53353) Diagnoses History of myocardial infarction I25.2
== END 2024-02-06 13:44 | disposition home or self-care (01) ==
PROVIDERS: PCP Internal Medicine; Visit Provider Internal Medicine Cardiovascular Disease
DX: I25.2 Old myocardial infarction (principal)
CPT/HCPCS: 93010; 99214

== ENCOUNTER → 2024-02-06 12:58 | Outpatient (BNVA) | payer OTHER, SELFPAY | PROVIDERS: PCP Internal Medicine; Visit Provider Internal Medicine Cardiovascular Disease | DX: I25.2 Old myocardial infarction (principal) | CPT/HCPCS: 93005; 99212 ==

== ENCOUNTER 2024-02-13 10:18 | Outpatient (AMB) | payer OTHER, SELFPAY ==
--- NOTE | 2024-02-13 10:22 | A.OFFVIS_ITS ---
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 She also suffers from chronic neck and shoulder pain. Denies any recent or past trauma, injury or falls. Patient works at [employer] full-time which consist walking and standing all day on concrete floor as well as pulling, lifting, rotating, and bending which exacerbates her daily pain significantly. Back pain is axial and also radiates into right lateral and posterior leg but not below knee level with associated burning and numbness in right mid-thoracic and right leg. Patient reports chronic bilateral leg swelling more prominent in the right leg with pain. Most recent US showed no DVT in both lower extremities. Patient used to live in [place] and has underwent lumbar nerve blocks and cortisone injections in completed physical therapy in the past with partial improvement. Thoracic spine and right hip xrays were ordered by her PCP but not completed yet. Abdominal CT scan in 2022 showed disc osteophyte complex at L5-S1 with moderate bilateral neural foraminal and mild central canal stenosis. Pain affects her daily activities and functioning, mood, sleep, and social interactions. Pain is constant during ADLs and work, rates it at 7-8/10 and less severe after work, rates it at 3-5/10. Patient is interested to pursue physical therapy and interventional treatments to address her current pain generators. Denies any fever, abdominal pain, foot drop, bladder or bowel dysfunction or saddle anesthesia. Location: Lower back, right mid back, right hip and groin, neck and shoulder pain Duration: Chronic pain for many years, worse for past 3 months Characteristics of symptom or complaint: Aching, stabbing, sharp, shooting, burning, numbness, tiring, cramping Aggravating or associated factors: Movements, weather, bending, lifting, rotating, pulling, standing, walking Relieving factors: Resting, stretching, Tylenol, NSAIDs, edible marijuana, tried opioids-N/V Treatment: PT, spine nerve blocks and cortisone injections in [facility] Medical History SMAS (superior mesenteric artery syndrome) Lower back pain Thyroid nodule Soto's disease Elevated cholesterol GERD (gastroesophageal reflux disease) History of myocardial infarction Encounter to establish care Heart attack Gastroparesis Surgical History S/P LEEP (08/11/23) Hx of colonoscopy Hx of cardiac catheterization History of esophagogastroduodenoscopy (EGD) S/P tubal ligation S/P tonsillectomy Family History Mother Hypertension CHF (congestive heart failure) Afib Rheumatoid arthritis AA (aortic aneurysm) Father Hypertension High cholesterol Social History Housing: House Alcohol intake: never Patient Tobacco Use Status: Former Tobacco user Tobacco use type: Cigarette Years Smoked: stopped in 2015, pt uses marijuanna for pain e-Cigarette/Vaping Use: Never Used Second Hand Smoke Exposure: No Substance Use Type: Marijuana service: No Current occupational status: employed Current occupation: [employer] Cognitive needs: No Hearing needs: No Vision needs: Yes Female Reproductive History Menstrual Age of Menarche: 13 Review of Systems Const All systems reviewed & are unremarkable except as noted in HPI and below Physical Exam Vital Signs: Last Vital Signs Pulse 82 02/13/24 10:29 BP 150/86 H 02/13/24 10:29 Pulse Ox 99 02/13/24 10:29 Oxygen Delivery Method Room Air 02/13/24 10:29 BMI result Body Mass Index 23.0 General: Appears afebrile. Alert and oriented. Mood and affect appropriate. Follows and participates in conversation appropriately. Respiratory effort is unlabored. No cough. Able to transition from sit to stand unassisted. Ambulates with bilaterally normal heel strike and toe off. General: Yes no CVA tenderness Back/Spine/Pelvis Other: Patient is able to walk and stand on heels and tip toes with mild difficulty on the right otherwise demonstrating good motor tone. No limping. Can flex forward to 80-85 degrees and extend to 5-10 degrees before experiencing lumbar pain. Demonstrates 5/5 strength of quadriceps bilaterally as well as flexion/dorsiflexion of bilateral feet against resistance. 2+ pedal pulses bilaterally. Straight leg rise with dorsiflexion positive on the right. DTR intact and symmetric bilaterally. Facet loading test positive bilaterally. Abel sign positive bilaterally, Brent?s and Stinchfield tests reproduce bilateral lateral hip pain but not low back pain. Mild right groin pain with external right hip rotations. No TTP in GTB bilaterally. Significant paraspinals tenderness mostly on the right thoracic/mid and lower back. Valsalva maneuver negative. Back: no CVA tenderness Cervical Spine: normal cervical lordosis, cervical ROM normal, cervical muscular tenderness and No Cervical spine tenderness Thoracic/Lumbar Spine: thoracic and lumbar spine normal to inspection, No Thoracic/lumbar spine scar(s), Lasegue's sign positive on the right and diffuse, pain with thoraco-lumbar ROM, paraspinal muscle tenderness, No thoracic spinal tenderness and lumbar spinal tenderness (L4-S1) Pelvis: buttock tenderness on the right and no sciatic notch tenderness Sacroiliac joints: bilaterally tender to palpation Results Reviewed Results Reviewed: CT/CT angio abdomen 03/22/23 Soft Tissues/Musculoskeletal: Disc osteophyte complex at L5-S1 results in moderate bilateral neural foraminal and mild central canal stenosis. No focal osseous lesions or acute fractures. US venous duplex [facility] 01/22/24 IMPRESSION: No DVT demonstrated in either lower extremity. Assessment & Plan Assessment & Plan (1) Lumbosacral spondylosis: Code(s): M47.817 - Spondylosis without myelopathy or radiculopathy, lumbosacral region Category: Medical (2) Right hip pain: Code(s): M25.551 - Pain in right hip Category: Medical (3) Thoracic spine pain: Code(s): M54.6 - Pain in thoracic spine Category: Medical (4) Lumbosacral spondylosis: Code(s): M47.817 - Spondylosis without myelopathy or radiculopathy, lumbosacral region Category: Medical (5) Lumbar degenerative disc disease: Code(s): M51.36 - Other intervertebral disc degeneration, lumbar region Category: Medical Plan Patient was reminded to complete right hip and thoracic spine x-rays as ordered by her PCP. We will also obtain lumbar spine x-ray to assess degree of degenerative changes, any subluxation, listhesis, compression fractures or pars defects. Briefly discussed treatments for axial and radicular low back pain and right hip pain. Patient is interested to start formal physical therapy and establish home exercise program. She requests PT closer to her home. Script sent today. Patient will return to the clinic to discuss results of the xray findings when it is done and consider interventional therapy as indicated if no improvement with PT. Continue daily physical activity and stretching exercises as tolerated, adequate hydration, good posture, rest, NSAIDs and Tylenol as needed. All questions and concerns have been answered patient agreed with the treatment plan. Follow-up for x-ray results/after PT and sooner as needed. Orders: Orders XR lumbar spine 4V min 02/13/24 M47.817 - Spondylosis without myelopathy or radiculopathy, lumbosacral region PT Evaluation and Treatment 02/13/24 M25.551 - Pain in right hip, M47.817 - Spondylosis without myelopathy or radiculopathy, lumbosacral region, M51.36 - Other intervertebral disc degeneration, lumbar region, M54.6 - Pain in thoracic spine Coding Level of Care Code New Pt Level 4 (73782) Diagnoses Lumbosacral spondylosis M47.817 Right hip pain M25.551 Thoracic spine pain M54.6 Lumbar degenerative disc disease M51.36
[2024-02-13 10:29] VITALS: BP 150/86; PULSE 82; O2SAT 99; BMI 23.0
== END 2024-02-13 10:58 | disposition home or self-care (01) ==
PROVIDERS: PCP Internal Medicine; Referring Provider Internal Medicine; Visit Provider Nurse Practitioner Family
DX: M47.817 Spondylosis without myelopathy or radiculopathy, lumbosacral region (principal); M25.551 Pain in right hip; M54.6 Pain in thoracic spine
CPT/HCPCS: 99203

== ENCOUNTER 2024-02-13 10:18 | Outpatient (REF) | payer OTHER, SELFPAY ==
--- NOTE | ~2024-02-13 | XR_ITS ---
EXAMINATION: XR LUMBOSACRAL SPINE WITH OBLIQUES CLINICAL INFORMATION: Pain no injury COMPARISON: CT angiography abdomen from 03/22/2023 TECHNIQUE: 5 views of the lumbar spine. FINDINGS: 5 nonrib-bearing lumbar-type vertebral bodies. No acute visible fracture or dislocation. Slight levocurvature of the thoracolumbar junction. Grade 1 retrolisthesis of L5 on S1. Suggestion of L5-S1 neuroforaminal narrowing. Multilevel degenerative changes disc space narrowing, endplate sclerosis, osteophyte formation, and facet arthropathy. Vertebral body heights and disc spaces are maintained. Posterior elements are intact. Paraspinal soft tissues are unremarkable. Bowel gas is unremarkable. Cholelithiasis. XR/XR lumbar spine 4V min IMPRESSION: 1. No acute visible fracture or dislocation. 2. Slight levocurvature of the thoracolumbar junction. 3. Grade 1 retrolisthesis of L5 on S1. 4. Suggestion of L5-S1 neuroforaminal narrowing. 5. Multilevel degenerative changes. 6. Cholelithiasis.
== END 2024-02-13 10:19 | disposition home or self-care (01) ==
LOC: HO.XRAY 10:18
PROVIDERS: Absent Provider Internal Medicine; PCP Internal Medicine; Referring Provider Internal Medicine; Visit Provider Nurse Practitioner Family
DX: M47.817 Spondylosis without myelopathy or radiculopathy, lumbosacral region (principal); M25.551 Pain in right hip; M51.36 Other intervertebral disc degeneration, lumbar region
CPT/HCPCS: 72110; 99202

== ENCOUNTER 2024-03-26 08:55 | Outpatient (REF) | payer OTHER, SELFPAY ==
[2024-03-26 10:31] LABS: Alanine Aminotransferase 13 U/L (0-31); Albumin Level 4.2 g/dL (3.5-5.0); Alkaline Phosphatase 62 U/L (39-117); Anion Gap 10 (12-20); Aspartate Amino Transferase 18 U/L (5-31); Bilirubin Total 0.3 mg/dL (0.0-1.0); Blood Urea Nitrogen 6 mg/dL (9-16); Calcium 9.9 mg/dL (8.4-10.2); Carbon Dioxide 27 mmol/L (22-29); Chloride 107 mmol/L (96-108); Cholesterol 147 mg/dL (<200); Estimated Glomerular Filt Rate > 60; Glucose Fasting 92 mg/dL (60-99); HDL Cholesterol 44 mg/dL (>40); LDL Cholesterol Calculated 86 mg/dL (<100); Sodium 140 mmol/L (135-145); Total Protein 8.1 g/dL (6.5-8.0); Triglycerides 89 mg/dL (<150)
[2024-03-26 10:53] LABS: Thyroid Stimulating Hormone 1.32 uIU/mL (0.32-4.0); Vitamin D 25-OH Total 19.7 ng/mL (>30)
== END 2024-03-26 08:56 | disposition home or self-care (01) ==
LOC: HO.LAB 08:55
PROVIDERS: PCP Internal Medicine; Visit Provider Internal Medicine
DX: Z00.00 Encounter for general adult medical examination without abnormal findings (principal); E78.5 Hyperlipidemia, unspecified; E55.9 Vitamin D deficiency, unspecified; E03.9 Hypothyroidism, unspecified
CPT/HCPCS: 36415; 80053; 80061; 82306; 84443

== ENCOUNTER → 2024-04-03 14:00 | Outpatient (BNV) | payer OTHER, SELFPAY | PROVIDERS: PCP Internal Medicine; Visit Provider Radiology Diagnostic Radiology | DX: N60.01 Solitary cyst of right breast (principal) | CPT/HCPCS: 76642; 77061; 77065 ==

== ENCOUNTER 2024-04-03 14:05 | Outpatient (REF) | payer OTHER, SELFPAY ==
--- NOTE | ~2024-04-03 | US_ITS ---
EXAMINATION: MM DIAGNOSTIC DIGITAL BREAST TOMOSYNTHESIS, RIGHT US BREAST LIMITED, RIGHT MAMMOGRAPHY: CLINICAL INFORMATION: Callback from screening; diagnostic for lobular mass right breast 2:00 axis COMPARISON: Mammography: 01/30/2024, 02/11/2022 baseline exam. TECHNIQUE: Digital breast tomosynthesis is performed in the following views: Full field 3-D right ML view x2, and 3-D spot compression right CC view x1. Computer-aided diagnosis was used for this study. This was followed by targeted right breast ultrasound. FINDINGS: The breasts are heterogeneously dense, which may obscure small masses (ACR BI-RADS breast composition Category c). Diagnostic views confirm the presence of a right breast 2:00 axis mid depth lobular isodense mass with peripheral calcification measuring 8 x 6 mm, with 2 gentle lobulations. It is otherwise well-circumscribed. This will be evaluated with ultrasound. ULTRASOUND: CLINICAL INFORMATION: As above COMPARISON: None TECHNIQUE: Targeted sonographic evaluation was performed using a high frequency linear transducer. Attention was given to the right breast upper inner quadrant. Selected archived documentation. FINDINGS: RIGHT BREAST: -Images demonstrate a correlating mildly complicated cyst measuring 6 x 7 x 3 mm with good through transmission, a solitary thin septation, peripheral small calcifications, and no internal color Doppler signal. No surrounding fatty changes. There is a mild lobulation but it is otherwise circumscribed. This is a probably benign abnormality and six-month interval follow-up targeted right breast ultrasound is recommended. US/US breast RT limited mamm only IMPRESSION: There are no findings suspicious for malignancy right breast. -Index abnormality on mammography correlates with a 6 x 7 x 3 mm complicated cyst as detailed, probably benign, for which six-month interval follow-up targeted right breast ultrasound ONLY is recommended. OVERALL ASSESSMENT: Mammography: BI-RADS 3 - Probably benign finding(s) - 6 month follow-up suggested Ultrasound: BI-RADS 3 - Probably benign finding(s) - 6 month follow-up suggested RECOMMENDATION: 6 Month F/U Electronically signed by: Christian Levin MD 04/03/2024 03:19 PM EDT
== END 2024-04-03 14:06 | disposition home or self-care (01) ==
LOC: HO.MAMMO 14:05
PROVIDERS: PCP Internal Medicine; Visit Provider Internal Medicine
DX: N64.89 Other specified disorders of breast (principal)
CPT/HCPCS: 76642; 77061; 77065

== ENCOUNTER 2024-06-25 09:15 | Outpatient (REF) | payer OTHER, SELFPAY ==
[2024-06-27 13:40] LABS: HPV 16,18/45 See PAP report
== END 2024-06-25 09:16 | disposition home or self-care (01) ==
LOC: HO.LNP 09:15
PROVIDERS: PCP Internal Medicine; Visit Provider Obstetrics & Gynecology
DX: Z01.419 Encounter for gynecological examination (general) (routine) without abnormal findings (principal); D06.9 Carcinoma in situ of cervix, unspecified; N91.2 Amenorrhea, unspecified; N94.9 Unspecified condition associated with female genital organs and menstrual cycle
CPT/HCPCS: 87624; 88175; 99396

== ENCOUNTER 2024-06-25 09:15 | Outpatient (AMB) | payer OTHER, SELFPAY ==
--- NOTE | 2024-06-25 09:18 | MHC.OFFVIS ---
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 The patient is complaining of no menstrual cycle last 2 months. Last Pap/HPV was SYLVIA 3, colpo biopsy confirmed SYLVIA 3, cone biopsy in 08/16 was done with positive margin, re-excision done in 10/14 was negative Last Mammogram was BI-RADS 3 04/16 recommendation was to repeat in 6 months Last screening colonoscopy was few months ago, the recommendation according to the patient was to repeat in 3 years [facility] Medical History SMAS (superior mesenteric artery syndrome) Lower back pain Thyroid nodule Soto's disease Elevated cholesterol GERD (gastroesophageal reflux disease) History of myocardial infarction Encounter to establish care Heart attack Gastroparesis Surgical History S/P LEEP (08/11/23) Hx of colonoscopy Hx of cardiac catheterization History of esophagogastroduodenoscopy (EGD) S/P tubal ligation S/P tonsillectomy Family History Mother Hypertension CHF (congestive heart failure) Afib Rheumatoid arthritis AA (aortic aneurysm) Father Hypertension High cholesterol Social History Housing: House Alcohol intake: never Patient Tobacco Use Status: Former Tobacco user Tobacco use type: Cigarette Years Smoked: stopped in 2015, pt uses marijuanna for pain e-Cigarette/Vaping Use: Never Used Second Hand Smoke Exposure: No Substance Use Type: Marijuana service: No Current occupational status: employed Current occupation: [employer] Cognitive needs: No Hearing needs: No Vision needs: Yes Female Reproductive History Menstrual Age of Menarche: 13 Date of last pap smear: 06/28/23 Date of Mammogram: 01/30/24 Review of Systems Const All systems reviewed & are unremarkable except as noted in HPI and below Card Reports as per HPI Resp Reports as per HPI GI Reports as per HPI and Reports no additional complaints Reports as per HPI Physical Exam Vital Signs: Last Vital Signs BP 126/82 06/25/24 09:19 BMI result Body Mass Index 23.6 Const General: cooperative, healthy appearing and comfortable Chest Chest palpation & inspection: normal inspection of the chest and normal palpation of entire chest wall Breast/axilla inspection: normal inspection of the breasts and normal inspection of the axillae Breast/axilla palpation: normal palpation of the breasts, normal palpation of the axillae and no axillary lymphadenopathy Resp Effort & Inspection: normal respiratory effort Auscultation: clear to auscultation bilaterally Percussion: percussion normal Cardio Palpation: normal PMI Rate: regular rate Rhythm: regular rhythm Heart sounds: no murmurs and no rubs Peripheral pulses: Peripheral pulses 2+ throughout GI Inspection: Yes normal to inspection Palpation (GI): Soft to palpation, nontender, no guarding, not rigid and No hepatosplenomegaly present Percussion: Yes normal to percussion Auscultation: normal bowel sounds Rectal Exam - Female: deferred General: Yes bladder normal to palpation External Female Exam: No lesion Speculum Exam - Vagina: normal appearance of the vagina, normal palpation, normal vaginal discharge and not erythematous Speculum Exam - Cervix: normal appearance of the cervix and normal palpation Bimanual exam- vagina & uterus: normal bimanual exam, normal palpation, uterine size normal, bladder normal to palpation, consistency normal and normal palpation Bimanual Exam- Adnexa, other: normal adnexae (Left adnexa), no masses, no tenderness and Other (Right adnexal fullness) Assessment & Plan Assessment & Plan (1) Well woman exam with routine gynecological exam: Comment: SYLVIA 3 status post cone and bleed LEEP in 10/14 Code(s): Z01.419 - Encounter for gynecological examination (general) (routine) without abnormal findings Category: Medical Plan: Co testing done. Counseled the patient about the recommended dietary allowance of 1200 mg of Calcium & 600 IU of vitamin D. Instructions given the patient to schedule next Mammogram in 10/15. The patient was instructed to perform monthly self-breast exams and schedule annual exam in a year. All questions answered and the patient verbalized understanding. (2) Amenorrhea: Code(s): N91.2 - Amenorrhea, unspecified Category: Medical Plan: Urine test done in the office was negative. Will order TSH, prolactin, hCG, FSH/LH . Instructions given the patient to schedule a 2 week follow-up appointment. All questions answered, the patient verbalized understanding (3) Adnexal fullness: Comment: Right side Code(s): N94.9 - Unspecified condition associated with female genital organs and menstrual cycle Category: Medical Plan: Urine test done in the office was negative. Discussed with the patient the finding on pelvic exam , right adnexal fullness. Will order pelvic ultrasound. Instructions given the patient to schedule an ultrasound and a 2 week follow-up appointment Orders: Orders Pap Smear Today D06.9 - Carcinoma in situ of cervix, unspecified, Z01.419 - Encounter for gynecological examination (general) (routine) without abnormal findings HPV High risk Today D06.9 - Carcinoma in situ of cervix, unspecified, Z01.419 - Encounter for gynecological examination (general) (routine) without abnormal findings Coding Level of Care Code Est Pt Level 3 (22428) Est Pt Prev Care 40-64y(51986) Diagnoses Well woman exam with routine gynecological exam Z01.419 Amenorrhea N91.2 Adnexal fullness N94.9
[2024-06-25 09:19] VITALS: BP 126/82; BMI 23.6
== END 2024-06-25 10:13 | disposition home or self-care (01) ==
LOC: HO.HWS 09:15
PROVIDERS: PCP Internal Medicine; Visit Provider Obstetrics & Gynecology
DX: Z01.419 Encounter for gynecological examination (general) (routine) without abnormal findings (principal); N91.2 Amenorrhea, unspecified; N94.9 Unspecified condition associated with female genital organs and menstrual cycle
CPT/HCPCS: 99396

== ENCOUNTER 2024-06-25 10:04 | Outpatient (REF) | payer OTHER, SELFPAY ==
[2024-06-25 11:58] LABS: HCG Quantitative < 2 mIU/mL; TSH reflex Free T4 3.22 uIU/mL (0.32-4.0)
[2024-06-27 00:48] LABS: Lutenizing Hormone 12.2 mIU/mL; Prolactin 13.2 ng/mL
== END 2024-06-25 10:05 | disposition home or self-care (01) ==
LOC: HO.LAB 10:04
PROVIDERS: PCP Internal Medicine; Visit Provider Obstetrics & Gynecology
DX: N91.2 Amenorrhea, unspecified (principal)
CPT/HCPCS: 36415; 83001; 83002; 84146; 84443; 84702

== ENCOUNTER 2024-08-02 16:27 | Outpatient (REF) | payer OTHER, SELFPAY ==
--- NOTE | ~2024-08-02 | US_ITS ---
EXAMINATION: US PELVIS TRANSABDOMINAL AND TRANSVAGINAL HISTORY: N94.9 - Unspecified condition associated with female genital organs and ... COMPARISON: There are no prior studies for comparison. TECHNIQUE: Transabdominal and endovaginal real-time 2D ashby-scale ultrasound was performed. Color Doppler was also performed. FINDINGS: Uterus: The uterus is normal in size, measuring 10.0 x 5.1 x 6.1 cm. Myometrium has a normal echotexture. There is a 1.8 x 1.4 x 2.2 cm partially calcified fibroid of the right uterine body. An additional 1.5 x 1.2 x 1.0 cm right uterine body fibroid is noted. Endometrium: The endometrial stripe measures 5 mm in thickness. Right ovary: The right ovary measures 2.6 x 2.9 x 2.5 cm. The right ovary is normal in size and echotexture. There is a 2.0 x 1.5 x 2.0 cm cyst versus follicle. Left ovary: The left ovary measures 3.0 x 1.4 x 2.1 cm. The left ovary is normal in size and echotexture. Color Doppler analysis of the bilateral ovarian arteries and veins are normal. Pelvic fluid: none. US/US pelvic and transvaginal IMPRESSION: Right uterine body fibroids as described. 2.0 cm right ovarian cyst versus follicle. Electronically signed by: Kendrick Alvarado MD 08/06/2024 07:40 AM [facility]
== END 2024-08-02 16:28 | disposition home or self-care (01) ==
LOC: HO.US 16:27
PROVIDERS: PCP Internal Medicine; Visit Provider Obstetrics & Gynecology
DX: N94.9 Unspecified condition associated with female genital organs and menstrual cycle (principal)
CPT/HCPCS: 76830; 76856

== ENCOUNTER → 2024-08-02 16:28 | Outpatient (BNV) | payer OTHER, SELFPAY | PROVIDERS: PCP Internal Medicine; Visit Provider Radiology Diagnostic Radiology | DX: N94.9 Unspecified condition associated with female genital organs and menstrual cycle (principal) | CPT/HCPCS: 76830; 76856 ==

== ENCOUNTER 2024-09-03 10:33 | Outpatient (AMB) | payer OTHER, SELFPAY ==
[2024-09-03 10:42] VITALS: BMI 23.6
--- NOTE | 2024-09-03 10:42 | MHC.OFFVIS ---
Vital Signs 09/03/24 10:42 Height 6 ft Weight 174 lb BMI 23.6 Intake Visit Reasons: ultrasound results Allergies Penicillins Allergy (Mild, Verified 06/25/24 09:23) Vomiting codeine Allergy (Verified 06/25/24 09:23) Vomiting metoclopramide [From Reglan] Adverse Reaction (Intermediate, Verified 06/25/24 09:23) Involuntary Spasms HPI Comments Details: Presenting for follow-up regarding amenorrhea and adnexal fullness identified on pelvic exam. Complaining of urinary frequency and incontinence of last few months. TSH, prolactin hCG were within normal FSH/LH= 17/12.2 Pelvic ultrasound showed the following: Uterus: The uterus is normal in size, measuring 10.0 x 5.1 x 6.1 cm. Myometrium has a normal echotexture. There is a 1.8 x 1.4 x 2.2 cm partially calcified fibroid of the right uterine body. An additional 1.5 x 1.2 x 1.0 cm right uterine body fibroid is noted. Endometrium: The endometrial stripe measures 5 mm in thickness. Right ovary: The right ovary measures 2.6 x 2.9 x 2.5 cm. The right ovary is normal in size and echotexture. There is a 2.0 x 1.5 x 2.0 cm cyst versus follicle. Left ovary: The left ovary measures 3.0 x 1.4 x 2.1 cm. The left ovary is normal in size and echotexture. Color Doppler analysis of the bilateral ovarian arteries and veins are normal. Pelvic fluid: none. [facility] Medical History SMAS (superior mesenteric artery syndrome) Lower back pain Thyroid nodule Soto's disease Elevated cholesterol GERD (gastroesophageal reflux disease) History of myocardial infarction Encounter to establish care Heart attack Gastroparesis Surgical History S/P LEEP (08/11/23) Hx of colonoscopy Hx of cardiac catheterization History of esophagogastroduodenoscopy (EGD) S/P tubal ligation S/P tonsillectomy Family History Mother Hypertension CHF (congestive heart failure) Afib Rheumatoid arthritis AA (aortic aneurysm) Father Hypertension High cholesterol Social History Housing: House Alcohol intake: never Patient Tobacco Use Status: Former Tobacco user Tobacco use type: Cigarette Years Smoked: stopped in 2016, pt uses marijuanna for pain e-Cigarette/Vaping Use: Never Used Second Hand Smoke Exposure: No Substance Use Type: Marijuana service: No Current occupational status: employed Current occupation: [employer] Cognitive needs: No Hearing needs: No Vision needs: Yes Female Reproductive History Menstrual Age of Menarche: 13 Review of Systems Const All systems reviewed & are unremarkable except as noted in HPI and below Reports as per HPI and Reports no additional complaints GI Reports no additional complaints Reports no additional complaints Physical Exam Vital Signs: BMI result Body Mass Index 23.6 Assessment & Plan Assessment & Plan (1) Amenorrhea: Comment: LH in the menopausal range, FSH premenopausal range Code(s): N91.2 - Amenorrhea, unspecified Category: Medical Plan: Discussed with the patient the results of TSH, hCG and prolactin normal, FSH in the premenopausal range but LH in the menopausal range. All questions answered, the patient verbalized understanding (2) Uterine myoma: Code(s): D25.9 - Leiomyoma of uterus, unspecified Category: Medical Plan: Discussed with the patient the findings on pelvic ultrasound & the risk of myosarcoma; discussed with the patient the options of treatment including expectant management versus hysterectomy; the pros and cons, risks benefits of each approach were discussed with the patient including the fact that in cases of myosarcoma, surgical treatment can lead to early diagnosis and positively affects the prognosis; after further discussion, the patient decided to proceed with expectant management. Will repeat pelvic ultrasound periodically. Instructions given to patient to call in case any of the following occurs: pressure symptoms, abnormal uterine bleeding, pelvic pain; and to schedule a six-months pelvic ultrasound (order placed) and a follow-up appointment . All questions answered, the patient verbalized understanding and agreed with the plan . (3) Urine incontinence: Code(s): R32 - Unspecified urinary incontinence Category: Medical Plan: Discussed with the patient the different types of Urine incontinence, stress urinary incontinence, intrinsic sphincter deficiency, overactive bladder and its work up. We will refer to uro Gyne at [facility]. All questions answered, the patient verbalized understanding. Instructed the patient to call our office back in case a referral appointment is not scheduled, missed or canceled so that we will assist on rescheduling another appointment, the patient verbalized understanding agreed with the plan. Orders: Orders US pelvic and transvaginal Today D25.9 - Leiomyoma of uterus, unspecified Referrals Urogynecology Referral R32 - Unspecified urinary incontinence Coding Level of Care Code Est Pt Level 3 (66315) Diagnoses Amenorrhea N91.2 Uterine myoma D25.9 Urine incontinence R32
== END 2024-09-03 10:58 | disposition home or self-care (01) ==
PROVIDERS: PCP Internal Medicine; Visit Provider Obstetrics & Gynecology
DX: N91.2 Amenorrhea, unspecified (principal); D25.9 Leiomyoma of uterus, unspecified; R32 Unspecified urinary incontinence
CPT/HCPCS: 99213

== ENCOUNTER → 2024-09-03 10:33 | Outpatient (BNVA) | payer OTHER, SELFPAY | PROVIDERS: PCP Internal Medicine; Visit Provider Obstetrics & Gynecology | DX: N91.2 Amenorrhea, unspecified (principal); D25.9 Leiomyoma of uterus, unspecified; R32 Unspecified urinary incontinence | CPT/HCPCS: 99212 ==

== ENCOUNTER → 2024-10-03 11:00 | Outpatient (BNV) | payer OTHER, SELFPAY | PROVIDERS: PCP Internal Medicine; Visit Provider Internal Medicine | DX: R92.1 Mammographic calcification found on diagnostic imaging of breast (principal) | CPT/HCPCS: 76642 ==

== ENCOUNTER 2024-10-03 11:06 | Outpatient (REF) | payer OTHER, SELFPAY ==
--- NOTE | ~2024-10-03 | US_ITS ---
EXAMINATION: US DIAGNOSTIC ULTRASOUND BREAST, RIGHT CLINICAL INFORMATION: 6 month follow-up right breast probable adjacent simple to minimally complicated cyst at 2:00 5 cm from the nipple.. COMPARISON: Comparison is made with relevant prior imaging. TECHNIQUE: Ultrasound of the breast is performed with real-time ashby scale imaging and color Doppler. FINDINGS: Targeted color Doppler ultrasound demonstrates interval decreased size of previously seen probable simple to minimally complicated cyst which today measures 5 x 2 x 4 mm at 2:00 5 cm from the nipple, previously measuring 6 x 7 x 3 mm. No other sonographic abnormality seen. Results are discussed with the patient at time of visit. US/US breast RT limited mamm only IMPRESSION: Interval decreased size of probable minimally complicated cyst at 2:00 5 cm from the nipple. Recommend ultrasound in 6 months when the patient is due for bilateral mammogram for confirmation. ASSESSMENT: BI-RADS 3: Probably Benign RECOMMENDATION: Diagnostic mammography in 6 months. This patient's information was entered into a reminder system with a target due date for their next mammogram. Electronically signed by: Sandee Garcia DO 10/03/2024 11:50 AM EDT
== END 2024-10-03 11:07 | disposition home or self-care (01) ==
LOC: HO.MAMMO 11:06
PROVIDERS: PCP Internal Medicine; Visit Provider Internal Medicine
DX: R92.2 Inconclusive mammogram (principal)
CPT/HCPCS: 76642

== ENCOUNTER 2025-01-28 08:17 | Outpatient (AMB) | payer OTHER, SELFPAY ==
--- OUTSIDE RECORDS SUMMARY | 2025-01-28 08:20 | XMS_ITS | Patient Health Record ---
Author Organization [facility] Address [address] [place] [address] Care Team Providers Care Stove Installer Name Role Phone Ellen Mcduffie Primary Care Provider Tete Palmer Unavailable [phone] Allergies Allergen (clinical drug ingredient) Drug/Non Drug Allergy documented on EMR Reaction Allergy Type Onset Date Status codine Unknown Drug Allergy Active Adhesive tape Unknown Drug Allergy Act mickey penicillin Unknown Drug Allergy Active Reason For Referral No Information Medications Medication SIG (Take, Route, Frequency, Duration) Notes Start Date End Date Status metoprolol Active atorvastatin Active Carafate Active aspirin Active Thyroxine Active Immunizations Vaccine Route Administration Date Status Comme nts Influenza Unknown 04/30/2019 Refused Pneumococcal Unknown 04/30/2019 Refused Social History Tobacco Use: Social History Observation Description Date Details (start date - stop date) Former Smoker NA - NA Smoking Question Answer Notes Status: former smoker Alcohol Question Answer Notes Did you have a drink contain ing alcohol in the past year? Yes How often did you have six o r more drinks on one occasion in the past year? Never (0 points) how many drink did you have on a typical day when you were drinking in the past year? 1 or 2 (0 points) How often did you have a dri nk containing alcohol in the past year? Monthly or less (1 point) Points 1 Interpretation Negative Plan Of Treatment No Information Insurance Providers Payer Name Payer Address Payer Phone Subscriber Number Group Number Insured Name Patient Relationship to Insured Coverage Start Date Coverage End Date Staywel l/Stayw [facility] Authorization required on all procedures [address] [address] [place] [address] [id number] Lynsey Berry Self - patient is the insured Medical (General) History Medical History History ICD Code hypothyroidism hasimotos thyroiditis CAD high bp Surgical History Surgery Date(Month/Year)
--- NOTE | 2025-01-28 08:27 | A.OFFPC_ITS ---
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: No Accompanied by: Self / Same As Patient Allergies Penicillins Allergy (Mild, Verified 01/28/25 08:49) Vomiting codeine Allergy (Verified 01/28/25 08:49) Vomiting metoclopramide (From Reglan) Adverse Reaction (Intermediate, Verified 01/28/25 08:49) Involuntary Spasms Medication List - Last Reconciled 01/28/25 by Maranda Valladares MD ascorbate calcium (vitamin C) 1 g PO Q6H aspirin 81 mg PO DAILY cholecalciferol (vitamin D3) 25 mcg PO DAILY mirabegron ER (Myrbetriq) 50 mg PO DAILY pantoprazole 40 mg PO DAILY rosuvastatin (Crestor) 40 mg PO DAILY sucralfate 1 g PO QIDACHS Tobacco use date assessed: 01/28/25 Dental Screening Dental Screen Date: 01/28/25 Did you have a dental visit in the last 12 months?: No Did you have a dental problem in the last 6 months where you did not have access to dental care?: No Was dental information given to patient?: Patient declined HPI HPI Comments History of Present Illness Details The patient is a 49-year-old female presenting for her physical exam and preventative screenings. She has a history of a myocardial infarction in 2015 and denies any current chest pain or dyspnea. Her last Tdap vaccine was over 10 years ago. A recent mammogram revealed a breast cyst that requires monitoring every six months. She has completed a Pap smear and colonoscopy in 2022. The patient denies any depression but reports experiencing mild anxiety. She has herpes simplex with a blister and would like valacyclovir. [facility] Medical History (Updated 01/28/25 @ 11:30 by Maranda Valladares MD) Mild major depression SMAS (superior mesenteric artery syndrome) Lower back pain Thyroid nodule Soto's disease Elevated cholesterol GERD (gastroesophageal reflux disease) History of myocardial infarction Encounter to establish care Heart attack Gastroparesis Surgical History (Updated 01/28/25 @ 09:06 by Maranda Valladares MD) Hx of appendectomy S/P LEEP (08/11/23) Hx of colonoscopy Hx of cardiac catheterization History of esophagogastroduodenoscopy (EGD) S/P tubal ligation S/P tonsillectomy Family History Mother Hypertension CHF (congestive heart failure) Afib Rheumatoid arthritis AA (aortic aneurysm) Father Hypertension High cholesterol Social History Housing: House Alcohol intake: never Patient Tobacco Use Status: Former Tobacco user Tobacco use type: Cigarette Years Smoked: stopped in 2016, pt uses marijuanna for pain e-Cigarette/Vaping Use: Never Used Second Hand Smoke Exposure: No Substance Use Type: Marijuana service: No Current occupational status: employed Current occupation: [employer] Cognitive needs: No Hearing needs: No Vision needs: Yes Female Reproductive History Menstrual Age of Menarche: 13 Questionnaire PHQ-9 Over the last 2 weeks, how often have you been bothered by any of the following problems? 1. Little interest or pleasure in doing things: not at all 2. Feeling down, depressed, or hopeless: not at all 3. Trouble falling or staying asleep, or sleeping too much: not at all 4. Feeling tired or having little energy: not at all 5. Poor appetite or overeating: not at all 6. Feeling bad about yourself - or that you are a failure or have let yourself or your family down: not at all 7. Trouble concentrating on things, such as reading the newspaper or watching television: not at all 8. Moving or speaking so slowly that other people could have noticed. Or the opposite - being so fidgety or restless that you have been moving around a lot more than usual: not at all 9. Thoughts that you would be better off or of hurting yourself in some way: not at all Total score: 0 Depression Screening Interpretation: Negative Depression Screening Done: Yes 62705 - PHQ-9 Billing: Yes Source: Developed by Drs. Kendrick Flynn, Renata Rosales, Latrell Xiong and colleagues, with an educational vance from [employer]. Thrive Questionnaire Date Thrive assessed: 01/26/25 I am a: Patient What is your living situation today?: I have a steady place to live Within the past 12 months, did the food you bought not last and you didn't have the money to get more?: Never true Within the past 12 months, did you worry whether your food would run out before you got money to buy more?: Never true Do you have trouble paying for medicines?: No Do you have trouble getting transportation to medical appointments?: No Do you have trouble paying your heating and electricity bill?: No Do you have trouble taking care of your child, family member or friend?: No Do you have trouble with day-to-day activities such as bathing, preparing meals, shopping, managing finances, etc.?: No Are you currently unemployed and looking for a job?: No Are you interested in more education?: No Please select the resources that you would like help with: None Currently or been in a relationship where the following occur: No concerns reported THRIVE Score: 0 AUDIT C Alcohol Use Questionnaire (AUDIT-C) 1. How often do you have a drink containing alcohol?: Never Total Score: 0 Score Reviewed/Action Taken: No RICHELLE-7 AMB Questionnaire RICHELLE-7 Date RICHELLE - 7 assessed: 01/28/25 Feeling nervous, anxious, or on edge: 3 = Nearly every day Not being able to stop or control worryin = Not at all Worrying too much about different things: 0 = Not at all Trouble relaxin = Not at all Being so restless that it is hard to sit still: 0 = Not at all Becoming easily annoyed or irritable: 3 = Nearly every day Feeling afraid as if something awful might happen: 0 = Not at all Total RICHELLE-7 score (0-4 normal; 5-9 mild; 10-14 moderate; 15-21 severe): 6 Source: Developed by Drs. Kendrick Flynn, Renata Rosales, Latrell Xiong and colleagues, with an educational vance from [employer]. RICHELLE-7 Assessment Billing RICHELLE-7 Assessment Tool: RICHELLE-7 Assessment 70978 Review of Systems Const All systems reviewed & are unremarkable except as noted in HPI and below Card Denies chest pain at rest, Denies chest pain with activity, Denies edema, Denies irregular heart rhythm, Denies claudication, Denies dyspnea, Denies dyspnea on exertion, Denies orthopnea, Denies paroxysmal nocturnal dyspnea and Denies slow heart rate Resp Denies cough, Denies dyspnea and Denies dyspnea on exertion GI Denies abdominal pain, Denies change in bowel habits, Denies excessive flatus, Denies nausea and Denies vomiting Denies urinary incontinence, Denies urinary hesitancy and Denies urinary urgency Physical exam (Primary Care) Vital Signs: Last Vital Signs BP 122/80 01/28/25 08:29 BMI result Body Mass Index 23.5 Tobacco/Smoking Status: Tobacco use Status Tobacco use date assessed 01/28/25 01/28/25 08:34 Patient Tobacco Use Status Former Tobacco user 01/28/25 08:34 Tobacco use type Cigarette 01/28/25 08:34 e-Cigarette/Vaping Use Never Used 01/28/25 08:34 PHQ-9: PHQ-9 Score PHQ-9: Total score 0 01/28/25 09:13 Depression Screening Interpretation: Negative Thrive Assessment: Date of Thrive Assessment Date Thrive assessed 01/26/25 01/28/25 08:34 Currently or been in a relationship where the following occur: No concerns reported [facility] Head: Yes normal to inspection, Yes normocephalic and Yes atraumatic Ears: external ears normal Eyes General: appearance normal, both eyes and all related structures Eyelids: Yes eyelids normal Conjunctivae: conjunctivae normal Neck Neck: Yes normal visual inspection and Yes supple Resp Effort & Inspection: normal respiratory effort Auscultation: clear to auscultation bilaterally Cardio Jugular venous distension: no JVD Rate: regular rate Rhythm: regular rhythm Heart sounds: S1 normal heart sound present and S2 normal heart sound present GI Inspection: Yes normal to inspection Palpation (GI): Soft to palpation and nontender Auscultation: normal bowel sounds Skin General skin exam: no rashes or lesions noted Neuro General: no focal motor deficits Extrem General: Yes full ROM Psych Appearance: grossly normal Immunizations Boostrix Tdap 2.5 Lf unit-8 mcg-5 Lf/0.5 mL intramuscular syringe Performing Provider: Maranda Valladares MD [place] [facility] Administered by: GIOVANNY Turner on 01/28/25 09:14 Dose Route Admin Location Dispensed Lot Number Expiration Date [facility] Inker [employer] 0.5 mL IM Left Deltoid 0.5 mL [id number] 03/22/27 [id number] [place]ark Total Dispensed Waste 0.5 mL 0 % VIS Given Date VIS Provided VIS Publication Date 01/28/25 Single Vaccine 24 Eligibility Eligibility Date Funding Source Not [facility] Eligible 01/28/25 Private Coding Level of Care Code Est Pt Level 3 (08215) Est Pt Prev Care 40-64y(38559) Diagnoses Physical exam Z00.00 HSV (herpes simplex virus) infection B00.9 Additional Codes RICHELLE-7 Assessment Billing - RICHELLE-7 Assessment Tool: RICHELLE-7 Assessment 14862 ([id number]) PHQ-9 - 67600 - PHQ-9 Billing: Yes ([id number]) Time Spent (min) 35 Assessment & Plan Assessment & Plan (1) Physical exam: Code(s): Z00.00 - Encounter for general adult medical examination without abnormal findings Category: Medical (2) HSV (herpes simplex virus) infection: Code(s): B00.9 - Herpesviral infection, unspecified Category: Medical Plan The patient will continue to monitor the breast cyst with follow-up mammograms every six months to assess for any changes. Preventative screenings such as Pap smear and colonoscopy have been completed this year, and the patient is advised to maintain regular follow-up for these screenings. Given the history of myocardial infarction, it is important to monitor cardiovascular health, although the patient currently denies any symptoms. The patient should consider updating her Tdap vaccination, as it has been over 10 years since the last dose. Start valacyclovir for HSV. Management of mild anxiety can be addressed with lifestyle modifications and monitoring, as the patient denies depression. Orders: Orders IRON PROFILE Today D64.9 - Anemia, unspecified Lipid Panel Today E78.5 - Hyperlipidemia, unspecified Vitamin D 25-OH Total Today E55.9 - Vitamin D deficiency, unspecified Complete Blood Count Auto Diff Today D64.9 - Anemia, unspecified Comprehensive [place]. Panel Fast Today Z00.00 - Encounter for general adult medical examination without abnormal findings Thyroid Stimulating Hormone Today E03.9 - Hypothyroidism, unspecified TDaP Immunization Today Z23 - Encounter for immunization Medications: New valacyclovir 1,000 mg PO Q8H 21 tabs 0RF 7 days
[2025-01-28 08:29] VITALS: BP 122/80; BMI 23.5
== END 2025-01-28 09:34 | disposition home or self-care (01) ==
LOC: HO.HMCH 08:18
PROVIDERS: PCP Internal Medicine; Visit Provider Internal Medicine
DX: Z00.00 Encounter for general adult medical examination without abnormal findings (principal); B00.9 Herpesviral infection, unspecified; Z23 Encounter for immunization

== ENCOUNTER → 2025-01-28 08:17 | Outpatient (BNVA) | payer OTHER, SELFPAY | PROVIDERS: PCP Internal Medicine; Visit Provider Internal Medicine | DX: Z00.00 Encounter for general adult medical examination without abnormal findings (principal); I25.2 Old myocardial infarction; B00.9 Herpesviral infection, unspecified; Z23 Encounter for immunization | CPT/HCPCS: 90471; 90715; 96127; 99212; 99396 ==

== ENCOUNTER 2025-02-11 09:20 | Outpatient (AMB) | payer OTHER, SELFPAY ==
[2025-02-11 09:49] VITALS: BP 118/68; PULSE 76; BMI 23.6
--- NOTE | 2025-02-11 09:49 | A.OFFVIS_ITS ---
Vital Signs 02/11/25 09:49 Height 6 ft Weight 174 lb 2.643 oz BMI 23.6 BP 118/68 Blood Pressure Location Lt brachial Position Sitting Pulse 76 Intake Visit Reasons: 1 yr f/up Intake Note: 1 year follow-up with ekg c/o leg swelling Electrical Maintenance Engineer Required: No Allergies Penicillins Allergy (Mild, Verified 01/28/25 08:49) Vomiting codeine Allergy (Verified 01/28/25 08:49) Vomiting metoclopramide (From Reglan) Adverse Reaction (Intermediate, Verified 01/28/25 08:49) Involuntary Spasms Medication List - Last Reconciled 02/11/25 by Frandy Montoya MD ascorbate calcium (vitamin C) 1 g PO Q6H aspirin 81 mg PO DAILY cholecalciferol (vitamin D3) 25 mcg PO DAILY mirabegron ER (Myrbetriq) 50 mg PO DAILY pantoprazole 40 mg PO DAILY rosuvastatin (Crestor) 40 mg PO DAILY sucralfate 1 g PO QIDACHS HPI Comments Details: Lynsey comes for follow-up. She has no new cardiac symptoms. She says she is very active in his day-to-day work and has no symptoms exertional chest pain. Takes all her medications. She is trying to maximize her dietary modification. Currently having issues with menopause. Denies any prolonged palpitation irregular heartbeat. Denies any shortness of breath, orthopnea, PND. PFSH Medical History Mild major depression SMAS (superior mesenteric artery syndrome) Lower back pain Thyroid nodule Soto's disease Elevated cholesterol GERD (gastroesophageal reflux disease) History of myocardial infarction Encounter to establish care Heart attack Gastroparesis Surgical History Hx of appendectomy S/P LEEP (08/11/23) Hx of colonoscopy Hx of cardiac catheterization History of esophagogastroduodenoscopy (EGD) S/P tubal ligation S/P tonsillectomy Family History Mother Hypertension CHF (congestive heart failure) Afib Rheumatoid arthritis AA (aortic aneurysm) Father Hypertension High cholesterol Social History Housing: House Alcohol intake: never Patient Tobacco Use Status: Former Tobacco user Tobacco use type: Cigarette Years Smoked: stopped in 2016, pt uses marijuanna for pain e-Cigarette/Vaping Use: Never Used Second Hand Smoke Exposure: No Substance Use Type: Marijuana service: No Current occupational status: employed Current occupation: [employer] Cognitive needs: No Hearing needs: No Vision needs: Yes Female Reproductive History Menstrual Age of Menarche: 13 Review of Systems Const Denies chills, Denies fatigue, Denies fever(s), Denies frequent falls, Denies weakness, Denies weight gain and Denies weight loss ENT Denies dizziness Card Denies chest pain, Denies leg edema, Denies lightheadedness, Denies palpitations, Denies dyspnea, Denies dyspnea on exertion, Denies orthopnea and Denies other (loss of consciousness) Resp Denies cough, Denies dyspnea and Denies dyspnea on exertion GI Denies hematochezia and Denies change in stool character Musc Denies abnormal gait, Denies muscle weakness, Denies numbness, Denies radiating pain into limb and Denies tingling Neuro Denies abnormal gait, Denies dizziness, Denies frequent falls, Denies numbness, Denies tingling and Denies weakness Endo Denies fatigue and Denies palpitations Physical Exam Vital Signs: Last Vital Signs Pulse 76 02/11/25 09:49 BP 118/68 02/11/25 09:49 BMI result Body Mass Index 23.6 Const General: cooperative, healthy appearing, comfortable and no acute distress Orientation/consciousness: patient oriented x3 Neck Neck: Yes normal visual inspection and Yes no JVD Resp Effort & Inspection: normal respiratory effort Auscultation: clear to auscultation bilaterally, no crackles, no rales, no rhonchi and no wheezes Cardio Jugular venous distension: no JVD Rate: regular rate Rhythm: regular rhythm Heart sounds: S1 normal heart sound present, S2 normal heart sound present, no murmurs and no rubs Neuro General: patient oriented x3 Extrem General: Yes normal to inspection, No no pedal edema and No calf tenderness Psych Appearance: grossly normal Mental Status: mental status grossly normal Speech and movement: Normal speech and movement present Office Procedures EKG Details: EKG shows normal sinus rhythm with low-voltage QRS with Q-waves in inferior leads as well as poor R-wave progression all findings seen in patients with ap ical infarct, unchanged from before 70431-Qytgnmysuejrxpcvz, Complete Assessment & Plan Assessment & Plan (1) History of myocardial infarction: Code(s): I25.2 - Old myocardial infarction Category: Medical Plan: History of prior apical myocardial infarction without any recurrent symptoms at this point time. Continue current aggressive medical therapy. Low-dose aspirin therapy is advised. Aggressive lipid modification advised. Advised lipid panel near future. Target goal LDL less than 70 mg/dL. Guidelines and management and pathophysiology of coronary artery disease and myocardial infarction was discussed. No further workup is indicated. No signs or symptoms of heart failure. Follow-up echocardiogram next year. Signs and symptoms of heart failure were discussed. Will follow up in the clinic in 1 year's time, sooner p.r.n.. Thank you for allowing me to partake in his care Orders: Orders Lipid Panel Today I25.10 - Atherosclerotic heart disease of [place] coronary artery without angina pectoris, I25.2 - Old myocardial infarction Coding Level of Care Code Est Pt Level 4 (26485) Complex EM visit Add On G2211 Diagnoses History of myocardial infarction I25.2 CPT Codes EKG - CPT: 96056-Wqpaszfvvopjhxszx, Complete ([id number])
--- OUTSIDE RECORDS SUMMARY | 2025-02-11 09:52 | XMS_ITS | Patient Health Record ---
Author Organization [facility] Address [address] [place] [address] Care Team Providers Care Crop Picker Name Role Phone Ellen Mcduffie Primary Care Provider Tete Palmer Unavailable [phone] Allergies Allergen (clinical drug ingredient) Drug/Non Drug [...] Start Date Coverage End Date Staywel l/Stayw [facility] Kids Authorization required on all procedures [address] [address] [place] [address] [id number] Lynsey Berry Self - patient is the insured Medical (General) History Medical History History ICD Code hypothyroidism hasimotos thyroiditis CAD high bp Surgical History Surgery Date(Month/Year)
== END 2025-02-11 10:16 | disposition home or self-care (01) ==
LOC: HO.HCS 09:20
PROVIDERS: PCP Internal Medicine; Visit Provider Internal Medicine Cardiovascular Disease
DX: I25.2 Old myocardial infarction (principal)
CPT/HCPCS: 93010; 99214

== ENCOUNTER → 2025-02-11 09:20 | Outpatient (BNVA) | payer OTHER, SELFPAY | PROVIDERS: PCP Internal Medicine; Visit Provider Internal Medicine Cardiovascular Disease | DX: I25.10 Atherosclerotic heart disease of native coronary artery without angina pectoris (principal); I25.2 Old myocardial infarction | CPT/HCPCS: 93005; 99212 ==

== ENCOUNTER 2025-02-18 09:17 | Outpatient (REF) | payer OTHER, SELFPAY ==
[2025-02-18 09:31] LABS: MANUAL DIFF FLAG NO
[2025-02-18 09:38] LABS: Hematocrit 35.2 % (37.0-47.0); Hemoglobin 11.5 g/dl (12.0-16.0); Imm Gran Abs Auto 0.02 X10*3/uL (0.00-0.03); Imm Gran Pct Auto 0.2 % (0.0-0.4); Lymphocytes Absolute Auto 1.6 X10*3/uL (1.2-4.9); Mean Corpuscular HGB Conc 32.7 g/dl (31.0-35.0); Mean Corpuscular Hemoglobin 26.0 pg (27.0-33.0); Mean Corpuscular Volume 79.5 fL (80.0-98.0); NRBC Abs Auto 0.000 X10*3/uL (0.0-0.012); NRBC Pct Auto 0.0 /100WBC (0.0-0.2); Platelet Count 284 X10*3/uL (160-400); Red Blood Count 4.43 X10*6/uL (4.20-5.50); White Blood Count 8.4 X10*3/uL (4.8-10.8)
--- OUTSIDE RECORDS SUMMARY | 2025-02-18 09:45 | XMS_ITS | Patient Health Record ---
Author Organization [facility] Address [address] [place] [address] Care Team Providers Care Vision Specialist Name Role Phone Ellen Mcduffie Primary Care Provider Tete Palmer Unavailable [phone] Allergies Allergen (clinical drug ingredient) Drug/Non Drug [...] Start Date Coverage End Date Staywel l/Stayw [facility] Kids Authorization required on all procedures [address] [address] [place] [address] [id number] Lynsey Berry Self - patient is the insured Medical (General) History Medical History History ICD Code hypothyroidism hasimotos thyroiditis CAD high bp Surgical History Surgery Date(Month/Year)
[2025-02-18 10:49] LABS: Alanine Aminotransferase 14 U/L (0-31); Albumin Level 4.3 g/dL (3.5-5.0); Alkaline Phosphatase 68 U/L (39-117); Anion Gap 12 (12-20); Aspartate Amino Transferase 35 U/L (5-31); Blood Urea Nitrogen 6 mg/dL (9-16); Calcium 8.8 mg/dL (8.4-10.2); Carbon Dioxide 25 mmol/L (22-29); Chloride 106 mmol/L (96-108); Cholesterol 137 mg/dL (<200); Estimated Glomerular Filt Rate > 60; HDL Cholesterol 41 mg/dL (>40); Iron 86 mcg/dL (30-160); Percent Iron Saturation 23 % (15-50); Potassium 4.6 mmol/L (3.3-5.1); Sodium 138 mmol/L (135-145); Total Iron Binding Capacity 368 mcg/dL (228-428); Total Protein 7.8 g/dL (6.5-8.0); Triglycerides 120 mg/dL (<150); Unsaturated Iron Binding 282 ug/dL
[2025-02-18 10:58] LABS: Thyroid Stimulating Hormone 1.74 uIU/mL (0.32-4.0)
== END 2025-02-18 09:18 | disposition home or self-care (01) ==
LOC: HO.LAB 09:17
PROVIDERS: Absent Provider Internal Medicine Cardiovascular Disease; PCP Internal Medicine; Visit Provider Internal Medicine
DX: Z00.00 Encounter for general adult medical examination without abnormal findings (principal); D64.9 Anemia, unspecified; E78.5 Hyperlipidemia, unspecified; E55.9 Vitamin D deficiency, unspecified; E03.9 Hypothyroidism, unspecified; I25.10 Atherosclerotic heart disease of native coronary artery without angina pectoris; I25.2 Old myocardial infarction
CPT/HCPCS: 36415; 80053; 80061; 82306; 83540; 84443; 85025

== ENCOUNTER 2025-02-25 10:51 | Outpatient (REF) | payer OTHER, SELFPAY ==
--- NOTE | ~2025-02-25 | US_ITS ---
CLINICAL HISTORY: D25.9 - Leiomyoma of uterus, unspecified US female pelvis LMP:2 weeks ago. Technique: Ultrasound examination of the pelvis was performed with transabdominal and transvaginal technique for better visualization of the ovaries. Images include: color Doppler. Comparison: US/MS/SR - US PELVIS TRANSABDOMINAL AND TRANSVAGINAL - 08/02/24 16:31 EST Findings: Anteverted uterus measuring 10.0 x 4.7 x 5.7cm with multiple fibroids. There is partially calcified intramural fibroid measuring 1.7 x 1.3 x 2.1 cm in the right uterine body. There is subserosal fibroid in the left uterine body measuring 1.9 x 1.8 x 1.9 cm. Normal endometrial thickness of 0.9cm. The right ovary is normal in size, measuring 4.3 x 2.6 x 3.3cm, volume of 19.3mL. There is normal echogenicity and vascularity. There is a hypoechoic avascular lesion measuring 1.9 x 2.2 x 1.9 cm with a reticular pattern. The left ovary is normal in size, measuring 3.6 x 2.3 x 1.8cm, volume of 11.7mL. There is normal echogenicity and vascularity. Anechoic avascular follicles measure up to 1.8 cm. No free fluid. Impression: Fibroid uterus. 2.2 cm right hemorrhagic cyst . No follow up is required. This document has been electronically signed by: Lynn Bess MD on 02/25/2025 16:19:52
--- OUTSIDE RECORDS SUMMARY | 2025-02-25 11:37 | XMS_ITS | Patient Health Record ---
Author Organization [facility] Address [address] [place] [address] Care Team Providers Care Salesperson Driver Name Role Phone Ellen Mcduffie Primary Care Provider Tete Palmer Unavailable [phone] Allergies Allergen (clinical drug ingredient) Drug/Non Drug Allergy documented on EMR Reaction Allergy Type Onset Date Status Adhesive tape Unknown Drug Allergy Act mickey penicillin Unknown Drug Allergy Active codine Unknown Drug Allergy Active Reason For Referral [...] Staywel l/Stayw [facility] Kids Authorization required on all procedures [address] [address] [place] [address] [id number] Lynsey Berry Self - patient is the insured Medical (General) History Medical History History ICD Code hypothyroidism hasimotos thyroiditis CAD high bp Surgical History Surgery Date(Month/Year)
== END 2025-02-25 10:52 | disposition home or self-care (01) ==
LOC: HO.US 10:51
PROVIDERS: PCP Internal Medicine; Visit Provider Obstetrics & Gynecology
DX: D25.9 Leiomyoma of uterus, unspecified (principal)
CPT/HCPCS: 76830; 76856

== ENCOUNTER → 2025-02-25 10:56 | Outpatient (BNV) | payer OTHER, SELFPAY | PROVIDERS: PCP Internal Medicine; Visit Provider Radiology Diagnostic Radiology | DX: N83.291 Other ovarian cyst, right side (principal) | CPT/HCPCS: 76830; 76856 ==

== ENCOUNTER 2025-03-12 09:46 | Outpatient (REF) | payer OTHER, SELFPAY ==
[2025-03-12 10:44] LABS: Hematocrit 36.0 % (37.0-47.0); Hemoglobin 11.6 g/dl (12.0-16.0); Mean Corpuscular HGB Conc 32.2 g/dl (31.0-35.0); Mean Corpuscular Hemoglobin 26.5 pg (27.0-33.0); Mean Corpuscular Volume 82.4 fL (80.0-98.0); NRBC Abs Auto 0.000 X10*3/uL (0.0-0.012); NRBC Pct Auto 0.0 /100WBC (0.0-0.2); Platelet Count 311 X10*3/uL (160-400); Red Blood Count 4.37 X10*6/uL (4.20-5.50); White Blood Count 6.4 X10*3/uL (4.8-10.8)
[2025-03-13 03:38] LABS: Follicle Stimulating Hormone 16.7 mIU/mL
== END 2025-03-12 09:47 | disposition home or self-care (01) ==
LOC: HO.LAB 09:46
PROVIDERS: PCP Internal Medicine; Visit Provider Obstetrics & Gynecology
DX: R10.2 Pelvic and perineal pain (principal); N93.9 Abnormal uterine and vaginal bleeding, unspecified; D25.9 Leiomyoma of uterus, unspecified; N83.299 Other ovarian cyst, unspecified side; Z32.00 Encounter for pregnancy test, result unknown; Z98.51 Tubal ligation status
CPT/HCPCS: 36415; 83001; 83002; 84443; 84702; 85027; 99212

== ENCOUNTER 2025-03-12 09:46 | Outpatient (AMB) | payer OTHER, SELFPAY ==
--- NOTE | 2025-03-12 09:49 | A.OFFVIS_ITS ---
Intake Visit Reasons: ultrasound results Allergies Penicillins Allergy (Mild, Verified 01/28/25 08:49) Vomiting codeine Allergy (Verified 01/28/25 08:49) Vomiting metoclopramide (From Reglan) Adverse Reaction (Intermediate, Verified 01/28/25 08:49) Involuntary Spasms HPI Comments Details: Presenting for follow-up ultrasound regarding uterine myoma seen on previous pelvic ultrasound. The patient is complaining of irregular menstrual cycles have urine more prolonged with pelvic pressure or pain. Pelvic ultrasound done recently showed the following: Anteverted uterus measuring 10.0 x 4.7 x 5.7cm with multiple fibroids. There is partially calcified intramural fibroid measuring 1.7 x 1.3 x 2.1 cm in the right uterine body. There is subserosal fibroid in the left uterine body measuring 1.9 x 1.8 x 1.9 cm. Normal endometrial thickness of 0.9cm. The right ovary is normal in size, measuring 4.3 x 2.6 x 3.3cm, volume of 19.3mL. There is normal echogenicity and vascularity. There is a hypoechoic avascular lesion measuring 1.9 x 2.2 x 1.9 cm with a reticular pattern. The left ovary is normal in size, measuring 3.6 x 2.3 x 1.8cm, volume of 11.7mL. There is normal echogenicity and vascularity. Anechoic avascular follicles measure up to 1.8 cm. No free fluid. 08/17 on pelvic ultrasound There was : a 1.8 x 1.4 x 2.2 cm partially calcified fibroid of the right uterine body. An additional 1.5 x 1.2 x 1.0 cm right uterine body fibroid is noted [facility] Medical History Mild major depression SMAS (superior mesenteric artery syndrome) Lower back pain Thyroid nodule Soto's disease Elevated cholesterol GERD (gastroesophageal reflux disease) History of myocardial infarction Encounter to establish care Heart attack Gastroparesis Surgical History Hx of appendectomy S/P LEEP (08/11/23) Hx of colonoscopy Hx of cardiac catheterization History of esophagogastroduodenoscopy (EGD) S/P tubal ligation S/P tonsillectomy Family History Mother Hypertension CHF (congestive heart failure) Afib Rheumatoid arthritis AA (aortic aneurysm) Father Hypertension High cholesterol Social History Housing: House Alcohol intake: never Patient Tobacco Use Status: Former Tobacco user Tobacco use type: Cigarette Years Smoked: stopped in 2016, pt uses marijuanna for pain e-Cigarette/Vaping Use: Never Used Second Hand Smoke Exposure: No Substance Use Type: Marijuana service: No Current occupational status: employed Current occupation: [employer] Cognitive needs: No Hearing needs: No Vision needs: Yes Female Reproductive History Menstrual Age of Menarche: 13 Review of Systems Const All systems reviewed & are unremarkable except as noted in HPI and below Reports as per HPI and Reports no additional complaints GI Reports no additional complaints Reports no additional complaints Assessment & Plan Assessment & Plan (1) Uterine myoma: Code(s): D25.9 - Leiomyoma of uterus, unspecified Category: Medical Plan: Discussed with the patient the findings on pelvic ultrasound & the risk of myosarcoma; in addition reviewed with the patient that malignancy and pre malignancy cannot be ruled out without hysterectomy for pathological evaluation ; furthermore, explained to the patient the limitation of pelvic ultrasound and endometrial biopsy in the setting. Discussed with the patient the options of treatment including expectant management versus hysterectomy; the pros and cons, risks benefits of each approach were discussed with the patient including the fact that in cases of myosarcoma, surgical treatment can lead to early diagnosis and positively affects the prognosis; after further discussion, the patient decided to proceed with expectant management. Will repeat pelvic ultrasound periodically. Instructions given to patient to call in case any of the following occurs: pressure symptoms, abnormal uterine bleeding, pelvic pain; and to schedule a 3- months pelvic ultrasound (order placed) and a follow-up appointment . All questions answered, the patient verbalized understanding and agreed with the plan . (2) Complex ovarian cyst: Code(s): N83.299 - Other ovarian cyst, unspecified side Category: Medical Plan: Discussed with the patient the complex ovarian cyst by ultrasound. Discussed with the patient the Ultrasound findings, the main limitation of transvaginal ultrasonography alone as a diagnostic tool to distinguish benign from malignant masses relates to its lack of specificity and low positive predictive value for cancer. The differential diagnosis discussed with the patient includes the following but not limited to: benign and malignant gynecological and non-gynecological causes. Laboratory evaluation include UPT and GC/CT , serum tumor marker CA 125 . Discussed with the patient options of treatment including laparoscopy ovarian cystectomy/oophorectomy vs. expectant management with repeat US in repeating pelvic US in 6-12 weeks from previous US. If the ovarian complex cyst is persistent larger and / or more complex looking,will refer to gynecologic Oncology. All pros, cons, risks and benefits of each approach were discussed with the patient including but not limited to a delay in the diagnosis and treatment of ovarian cancer affecting the prognosis; The patient decided to go ahead with expectant management. Instructions given the patient to schedule a 3 months follow-up ultrasound appointment. All questions were answered & the patient verbalized understanding and agreed with the plan. (3) Abnormal uterine bleeding (AUB): Code(s): N93.9 - Abnormal uterine and vaginal bleeding, unspecified Category: Medical Plan: CBC, TSH, FSH/LH, HCG ordered. Discussed with the patient the different causes of abnormal bleeding including thyroid disorders, uterine and ovarian pathology, endometrial hyperplasia, carcinoma and other potential causes. Discussed with the patient the work up including CBC (to r/o anemia), TSH, FSH/LH, endometrial biopsy to r/o endometrial pathology. All questions answered and the patient verbalized understanding. Instructed the patient to schedule an appointment for an endometrial biopsy in 2 weeks. Orders: Orders TSH reflex Free T4 Today N93.9 - Abnormal uterine and vaginal bleeding, unspecified HCG Quantitative Today N93.9 - Abnormal uterine and vaginal bleeding, unspecified Lutenizing Hormone Today N93.9 - Abnormal uterine and vaginal bleeding, unspecified Follicle Stimulating Hormone Today N93.9 - Abnormal uterine and vaginal bleeding, unspecified Complete Blood Count no Diff Today N93.9 - Abnormal uterine and vaginal bleeding, unspecified US pelvic and transvaginal 3 Months D25.9 - Leiomyoma of uterus, unspecified, N83.299 - Other ovarian cyst, unspecified side Coding Level of Care Code Est Pt Level 3 (63903) Diagnoses Uterine myoma D25.9 Complex ovarian cyst N83.299 Abnormal uterine bleeding (AUB) N93.9
--- OUTSIDE RECORDS SUMMARY | 2025-03-12 10:38 | XMS_ITS | Patient Health Record ---
Author Organization [facility] Address [address] [place] [address] Care Team Providers Care Insurance Adjustor Name Role Phone Ellen Mcduffie Primary Care Provider Tete Palmer Unavailable [phone] Allergies Allergen (clinical drug ingredient) Drug/Non Drug [...] Start Date Coverage End Date Staywel l/Stayw [facility] Kids Authorization required on all procedures [address] [address] [place] [address] [id number] Lynsey Berry Self - patient is the insured Medical (General) History Medical History History ICD Code hypothyroidism hasimotos thyroiditis CAD high bp Surgical History Surgery Date(Month/Year)
== END 2025-03-12 10:04 | disposition home or self-care (01) ==
LOC: HO.HWS 09:47
PROVIDERS: PCP Internal Medicine; Visit Provider Obstetrics & Gynecology
DX: D25.9 Leiomyoma of uterus, unspecified (principal); N83.299 Other ovarian cyst, unspecified side; N93.9 Abnormal uterine and vaginal bleeding, unspecified
CPT/HCPCS: 99213

== ENCOUNTER 2025-03-25 08:25 | Outpatient (AMB) | payer OTHER, SELFPAY ==
--- NOTE | 2025-03-25 08:35 | MHC.OFFVIS ---
Vital Signs 03/25/25 08:44 Height 6 ft Weight 174 lb BMI 23.6 BP 100/62 Intake Visit Reasons: EMB Research Director: Research Director Present (Mariia) Allergies Penicillins Allergy (Mild, Verified 03/25/25 08:36) Vomiting codeine Allergy (Verified 03/25/25 08:36) Vomiting metoclopramide (From Reglan) Adverse Reaction (Intermediate, Verified 03/25/25 08:36) Involuntary Spasms HPI Comments Details: Presenting for EMB [facility] Medical History Mild major depression SMAS (superior mesenteric artery syndrome) Lower back pain Thyroid nodule Soto's disease Elevated cholesterol GERD (gastroesophageal reflux disease) History of myocardial infarction Encounter to establish care Heart attack Gastroparesis Surgical History Hx of appendectomy S/P LEEP (08/11/23) Hx of colonoscopy Hx of cardiac catheterization History of esophagogastroduodenoscopy (EGD) S/P tubal ligation S/P tonsillectomy Family History Mother Hypertension CHF (congestive heart failure) Afib Rheumatoid arthritis AA (aortic aneurysm) Father Hypertension High cholesterol Social History Housing: House Alcohol intake: never Patient Tobacco Use Status: Former Tobacco user Tobacco use type: Cigarette Years Smoked: stopped in 2015, pt uses marijuanna for pain e-Cigarette/Vaping Use: Never Used Second Hand Smoke Exposure: No Substance Use Type: Marijuana service: No Current occupational status: employed Current occupation: [employer] Cognitive needs: No Hearing needs: No Vision needs: Yes Female Reproductive History Menstrual Age of Menarche: 13 Review of Systems Const All systems reviewed & are unremarkable except as noted in HPI and below Reports as per HPI and Reports no additional complaints GI Reports no additional complaints Reports no additional complaints Physical Exam Vital Signs: Last Vital Signs BP 100/62 03/25/25 08:44 BMI result Body Mass Index 23.6 Office Procedures Endometrial Biopsy Details: The patient was counseled regarding the indication and benefits of endometrial sampling to rule out endometrial pathology including not limited to endometrial hyperplasia or endometrial cancer and others; The alternatives (Either do nothing vs. hysteroscopy D&C) & the risks were discussed with the patient including but not limited: pain, uterine perforation, bleeding, infection, possible injury to bladder, bowel, ureter, possible need for blood transfusion with all its possible risks. The patient verbalized understanding all questions answered and signed consent. Urine test done in the office was negative The patient was placed into the dorsal lithotomy position; a speculum was inserted in the vagina. Using aseptic technique for the procedure, the cervix was cleansed with Betadine. The anterior lip of the cervix was grasped with a single tooth tenaculum. The uterus was sounded to 7 cm with a 4 mm Pipelle was used. Tissues samples were obtained and placed in formalin, in a patient labeled container and sent to the pathology department. At the end of the procedure, there was minimal bleeding noted The patient tolerated the procedure well and was discharged in good condition with the following instructions: Nothing in the vagina until the bleeding stops. No sex until the bleeding stops, to call if any of the following occurs: fever (>100.4), flu-like symptoms, abdominal pain, heavy bleeding, four smelling vaginal discharge. The patient was instructed to schedule a Follow up appointment in 2 weeks to discuss pathology results of the biopsy and treatment options. This note was generated with a voice recognition program. Some errors may have been overlooked during the review of this note. Sometimes these errors may affect the content or meaning of a given sentence. [id number] Biopsy Results AMB Test Urine AMB Test Urine Negative Last Edit by GIOVANNY Brink on 03/25/25 08:45 Assessment & Plan Assessment & Plan (1) Abnormal uterine bleeding (AUB): Code(s): N93.9 - Abnormal uterine and vaginal bleeding, unspecified Category: Medical Plan: EMB done, see procedure note Orders: Orders AMB HCG Urine Test Today N93.9 - Abnormal uterine and vaginal bleeding, unspecified AMB Endometrial Biopsy Today N93.9 - Abnormal uterine and vaginal bleeding, unspecified Coding Level of Care Code Procedure Only Diagnoses Abnormal uterine bleeding (AUB) N93.9 CPT Codes Endometrial Biopsy - CPT: 72188-[id number] Biopsy ([id number])
[2025-03-25 08:44] VITALS: BP 100/62; BMI 23.6
--- OUTSIDE RECORDS SUMMARY | 2025-03-25 09:02 | XMS_ITS | Patient Health Record ---
Author Organization [facility] Address [address] [place] [address] Care Team Providers Care Urgent Care Nurse Practitioner Name Role Phone Ellen Mcduffie Primary Care Provider Ttee Palmer Unavailable [phone] Allergies Allergen (clinical drug ingredient) Drug/Non Drug [...] Start Date Coverage End Date Staywel l/Stayw [facility] Kids Authorization required on all procedures [address] [address] [place] [address] [id number] Lynsey Berry Self - patient is the insured Medical (General) History Medical History History ICD Code hypothyroidism hasimotos thyroiditis CAD high bp Surgical History Surgery Date(Month/Year)
== END 2025-03-25 08:58 | disposition home or self-care (01) ==
LOC: HO.HWS 08:25
PROVIDERS: PCP Internal Medicine; Visit Provider Obstetrics & Gynecology
DX: N93.9 Abnormal uterine and vaginal bleeding, unspecified (principal)
CPT/HCPCS: 58100

== ENCOUNTER 2025-03-25 08:25 | Outpatient (REF) | payer OTHER, SELFPAY | END 2025-03-25 08:26 | disposition home or self-care (01) | LOC: HO.LNP 08:25 | PROVIDERS: PCP Internal Medicine; Visit Provider Obstetrics & Gynecology | DX: N93.9 Abnormal uterine and vaginal bleeding, unspecified (principal); Z32.02 Encounter for pregnancy test, result negative | CPT/HCPCS: 58100; 81025; 88305 ==

== ENCOUNTER 2025-04-08 08:12 | Outpatient (AMB) | payer OTHER, SELFPAY ==
--- NOTE | 2025-04-08 08:20 | MHC.OFFVIS ---
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 The following workup was done.: H&H= 11.6/36 TSH, hCG were negative. FSH/LH 16.7/7.7 Endometrial biopsy pathology showed the following: Benign proliferative endometrium, and focal benign endocervical glandular and squamous epithelium; no atypia or carcinoma Co testing was done in 07/16 was negative. Mammogram with breast ultrasound is scheduled today Pelvic ultrasound showed the following: Anteverted uterus measuring 10.0 x 4.7 x 5.7cm with multiple fibroids. There is partially calcified intramural fibroid measuring 1.7 x 1.3 x 2.1 cm in the right uterine body. There is subserosal fibroid in the left uterine body measuring 1.9 x 1.8 x 1.9 cm. Normal endometrial thickness of 0.9cm. The right ovary is normal in size, measuring 4.3 x 2.6 x 3.3cm, volume of 19.3mL. There is normal echogenicity and vascularity. There is a hypoechoic avascular lesion measuring 1.9 x 2.2 x 1.9 cm with a reticular pattern. The left ovary is normal in size, measuring 3.6 x 2.3 x 1.8cm, volume of 11.7mL. There is normal echogenicity and vascularity. Anechoic avascular follicles measure up to 1.8 cm. No free fluid. [facility] Medical History Mild major depression SMAS (superior mesenteric artery syndrome) Lower back pain Thyroid nodule Soto's disease Elevated cholesterol GERD (gastroesophageal reflux disease) History of myocardial infarction Encounter to establish care Heart attack Gastroparesis Surgical History Hx of appendectomy S/P LEEP (08/11/23) Hx of colonoscopy Hx of cardiac catheterization History of esophagogastroduodenoscopy (EGD) S/P tubal ligation S/P tonsillectomy Family History Mother Hypertension CHF (congestive heart failure) Afib Rheumatoid arthritis AA (aortic aneurysm) Father Hypertension High cholesterol Social History Housing: House Alcohol intake: never Patient Tobacco Use Status: Former Tobacco user Tobacco use type: Cigarette Years Smoked: stopped in 2016, pt uses marijuanna for pain e-Cigarette/Vaping Use: Never Used Second Hand Smoke Exposure: No Substance Use Type: Marijuana service: No Current occupational status: employed Current occupation: [employer] Cognitive needs: No Hearing needs: No Vision needs: Yes Female Reproductive History Menstrual Age of Menarche: 13 Review of Systems Const All systems reviewed & are unremarkable except as noted in HPI and below Reports as per HPI and Reports no additional complaints GI Reports no additional complaints Reports no additional complaints Physical Exam Vital Signs: Last Vital Signs BP 122/80 04/08/25 08:26 BMI result Body Mass Index 23.6 Assessment & Plan Assessment & Plan (1) Abnormal uterine bleeding (AUB): Comment: h/o AR @ 40 Uterine myoma Hemorrhagic cyst Code(s): N93.9 - Abnormal uterine and vaginal bleeding, unspecified Category: Medical Plan: Discussed with the patient the findings on pelvic ultrasound & the risk of myosarcoma; in addition reviewed with the patient that malignancy and pre malignancy cannot be ruled out without hysterectomy for pathological evaluation ; furthermore, explained to the patient the limitation of pelvic ultrasound and endometrial biopsy in the setting. Discussed with the patient the typical symptoms that are caused by myomas including but not limited to pelvic pain, pressure symptoms, abnormal uterine bleeding. In addition discussed with the patient options of treatment for myomas including: Serial ultrasounds periodically to follow-up on the size of the myoma while targeting the treatment against fibroids related symptoms (Mirena IUD, progesterone treatment, GnRH agonist/antagonist, uterine artery embolization or endometrial ablation) versus surgical treatment including hysterectomy . All pros and cons, risks and benefits of all options were discussed with the patient, she decided to proceed with definitive surgical management. Discussed with the patient the different types of hysterectomies including, vaginal, laparoscopic assisted vaginal, robotic assisted laparoscopic,& abdominal with BSO. All pros, cons, r/b of each approach were discussed the patient including evidence that morbidity is less and recovery is shorter with minimally invasive approaches to hysterectomy with possible ovarian cystectomy/oophorectomy and bilateral salpingectomy. Discussed with the patient the lack of availability of the robot [employer] robot and/or minimally invasive landscape architect and planner specialist at [facility]. Will refer to [facility] minimally invasive chief power dispatcher surgery. Instructed the patient to call our office back in case a referral appointment is not scheduled, missed or canceled so that we will assist on rescheduling another appointment, the patient verbalized understanding agreed with the plan. Coding Level of Care Code Est Pt Level 3 (07645) Diagnoses Abnormal uterine bleeding (AUB) N93.9
[2025-04-08 08:26] VITALS: BP 122/80; BMI 23.6
--- OUTSIDE RECORDS SUMMARY | 2025-04-08 09:24 | XMS_ITS | Patient Health Record ---
Author Organization [facility] Address [address] [place] [address] Care Team Providers Care Valve Tester Name Role Phone Ellen Mcduffie Primary Care Provider Tete Palmer Unavailable [phone] Allergies Allergen (clinical drug ingredient) Drug/Non Drug [...] Start Date Coverage End Date Staywel l/Stayw [facility] Kids Authorization required on all procedures [address] [address] [place] [address] [id number] Lynsey Berry Self - patient is the insured Medical (General) History Medical History History ICD Code hypothyroidism hasimotos thyroiditis CAD high bp Surgical History Surgery Date(Month/Year)
== END 2025-04-08 08:48 | disposition home or self-care (01) ==
LOC: HO.HWS 08:12
PROVIDERS: PCP Internal Medicine; Visit Provider Obstetrics & Gynecology
DX: N93.9 Abnormal uterine and vaginal bleeding, unspecified (principal)
CPT/HCPCS: 99213

== ENCOUNTER 2025-04-08 08:55 | Outpatient (REF) | payer OTHER, SELFPAY ==
--- NOTE | ~2025-04-08 | US_ITS ---
EXAMINATION(S): MM DIAGNOSTIC DIGITAL BREAST TOMOSYNTHESIS, BILATERAL Targeted ultrasound of the right breast CLINICAL INFORMATION: This is a 6-month follow-up of right breast asymmetry seen in the medial breast on the CC view with decreasing sonographic correlate located at 2 o'clock position 5 cm from the nipple. COMPARISON: Comparison made to multiple prior, most recent right breast ultrasound on October 03, 2024, and most remote bilateral mammogram on January 12, 2022. TECHNIQUE: Digital breast tomosynthesis is performed in both the mediolateral oblique and craniocaudal views along with computer-aided detection (CAD). Synthesized 2D images are generated from the tomosynthesis. Spot compression tomosynthesis and spot magnified compression views were also obtained for the right breast. FINDINGS: BREAST COMPOSITION: The breasts are heterogeneously dense, which may obscure small masses (ACR BI-RADS breast composition Category c). RIGHT BREAST: - Previously described asymmetry in the medial breast at about 7 cm from the nipple, associated with peripheral calcification measures about 0.5 cm, which is further decreased in size since January 2024 (CC 34/59). Targeted ultrasound was performed at the location of the previously described sonographic correlate. The survey shows a 0.4 x 0.3 x 0.2 cm cystic structure at 2 o'clock position 5 cm from the nipple. Prior sonographic measurements were 0.5 x 0.2 x 0.4 cm in September 2024. - There is an approximately 0.7 cm focal asymmetry in the lower outer quadrant at about 7 to 8 cm from the nipple with peripheral calcifications (spot CC 15/59). Targeted ultrasound was performed at the location of the mammographic finding. The survey shows a 0.7 x 0.3 x 0.4 cm hypoechoic solid-appearing mass at 8 o'clock position at 5 cm from the nipple, with possible but no definite peripheral echogenic foci. LEFT BREAST: No significant masses, suspicious calcifications or other abnormalities are seen. US/US breast RT limited mamm only IMPRESSION: RIGHT BREAST: 1. Further interval decrease in size of the asymmetry in the medial breast middle depth on the CC view with sonographic correlate located at 2 o'clock position 5 cm from the nipple. At this point, this can be considered a benign finding and no dedicated imaging follow-up needed. 2. Focal asymmetry in the lower outer quadrant middle depth associated with peripheral calcifications. Probable sonographic correlate represents a solid appearing mass at 8 o'clock position 5 cm from the nipple. Probably benign. A 6-month follow-up is recommended with mammogram and ultrasound. LEFT BREAST: Negative, no mammographic evidence of malignancy. Normal interval follow-up is recommended in 12 months. ASSESSMENT: BI-RADS 3 - Probably benign finding(s) - 6 month follow-up suggested RECOMMENDATION: 6 Month F/U Results were provided to the patient at time of visit by the technologist. This patient's information was entered into a reminder system with a target due date for their next mammogram. Electronically signed by: Jayce Maciel MD 04/08/2025 11:11 AM EDT
== END 2025-04-08 08:56 | disposition home or self-care (01) ==
LOC: HO.MAMMO 08:55
PROVIDERS: PCP Internal Medicine; Visit Provider Internal Medicine
DX: R92.8 Other abnormal and inconclusive findings on diagnostic imaging of breast (principal)
CPT/HCPCS: 76642; 77062; 77066; 99212

== ENCOUNTER → 2025-04-08 09:30 | Outpatient (BNV) | payer OTHER, SELFPAY | PROVIDERS: PCP Internal Medicine; Visit Provider Radiology Body Imaging | DX: N63.13 Unspecified lump in the right breast, lower outer quadrant (principal) | CPT/HCPCS: 76642; 77062; 77066 ==

== ENCOUNTER 2025-06-02 10:50 | Outpatient (REF) | payer OTHER, SELFPAY ==
--- NOTE | ~2025-06-02 | US_ITS ---
CLINICAL HISTORY: N83.299 - Other ovarian cyst, unspecified side US pelvis transabdominal and transvaginal Comparison: US/SR - US PELVIC AND TRANSVAGINAL - 02/25/25 11:28 EDT Findings: Transabdominal scanning performed for overall anatomy. Transvaginal scanning performed for additional detail. Anteverted uterus is 9.3 cm length. There are 3 small uterine fibroids. There is a 1.7 x 1.3 x 2.5 cm intramural fibroid within the anterior uterine body (previously 1.7 x 1.3 x 2.1 cm). There is a 2.0 x 1.9 x 1.8 cm subserosal fibroid within the posterior uterine body (previously 1.9 x 1.8 x 1.9 cm). There is a 1.7 x 1.9 x 1.9 cm intramural versus subserosal fibroid within the posterior uterine body, not previously documented. Endometrium 10 mm thickness. No lesions. Right ovary 3.8 x 2.7 x 3.5 cm. The right ovary is unremarkable. Left ovary 3.6 x 2.2 x 2.1 cm. There is a 2.2 cm involuting cyst within the left ovary. Normal color Doppler of both ovaries. No free fluid. IMPRESSION: 1. There are several small uterine fibroids. 2. There is no suspicious adnexal mass. This document has been electronically signed by: Noemy Mccain MD on 06/03/2025 15:46:27
== END 2025-06-02 10:51 | disposition home or self-care (01) ==
LOC: HO.US 10:50
PROVIDERS: PCP Internal Medicine; Visit Provider Obstetrics & Gynecology
DX: N83.299 Other ovarian cyst, unspecified side (principal); D25.9 Leiomyoma of uterus, unspecified
CPT/HCPCS: 76830; 76856

== ENCOUNTER → 2025-06-02 10:53 | Outpatient (BNV) | payer OTHER, SELFPAY | PROVIDERS: PCP Internal Medicine; Visit Provider Radiology Diagnostic Radiology | DX: D25.9 Leiomyoma of uterus, unspecified (principal); N83.292 Other ovarian cyst, left side | CPT/HCPCS: 76830; 76856 ==

== ENCOUNTER 2025-06-10 07:42 | Outpatient (AMB) | payer OTHER, SELFPAY ==
--- NOTE | 2025-06-10 07:43 | A.OFFVIS_ITS ---
Intake Visit Reasons: ultrasound results [employer] Principal Required: No Information Interpreted: non-clinical & clinical Allergies Penicillins Allergy (Mild, Verified 06/10/25 07:46) Vomiting codeine Allergy (Verified 06/10/25 07:46) Vomiting metoclopramide (From Reglan) Adverse Reaction (Intermediate, Verified 06/10/25 07:46) Involuntary Spasms HPI Comments Details: The patient is schedule telehealth visit for ultrasound follow-up regarding uterine myomas, doing well with no complaints. The patient was refer to [facility] for minimally invasive hysterectomy, appointment scheduled on 07/09 Pelvic ultrasound showed the following: Transabdominal scanning performed for overall anatomy. Transvaginal scanning performed for additional detail. Anteverted uterus is 9.3 cm length. There are 3 small uterine fibroids. There is a 1.7 x 1.3 x 2.5 cm intramural fibroid within the anterior uterine body (previously 1.7 x 1.3 x 2.1 cm). There is a 2.0 x 1.9 x 1.8 cm subserosal fibroid within the posterior uterine body (previously 1.9 x 1.8 x 1.9 cm). There is a 1.7 x 1.9 x 1.9 cm intramural versus subserosal fibroid within the posterior uterine body, not previously documented. Endometrium 10 mm thickness. No lesions. Right ovary 3.8 x 2.7 x 3.5 cm. The right ovary is unremarkable. Left ovary 3.6 x 2.2 x 2.1 cm. There is a 2.2 cm involuting cyst within the left ovary. Normal color Doppler of both ovaries. No free fluid. IMPRESSION: 1. There are several small uterine fibroids. 2. There is no suspicious adnexal mass. [facility] Medical History Mild major depression SMAS (superior mesenteric artery syndrome) Lower back pain Thyroid nodule Soto's disease Elevated cholesterol GERD (gastroesophageal reflux disease) History of myocardial infarction Encounter to establish care Heart attack Gastroparesis Surgical History Hx of appendectomy S/P LEEP (08/11/23) Hx of colonoscopy Hx of cardiac catheterization History of esophagogastroduodenoscopy (EGD) S/P tubal ligation S/P tonsillectomy Family History Mother Hypertension CHF (congestive heart failure) Afib Rheumatoid arthritis AA (aortic aneurysm) Father Hypertension High cholesterol Social History Housing: House Alcohol intake: never Patient Tobacco Use Status: Former Tobacco user Tobacco use type: Cigarette Years Smoked: stopped in 2016, pt uses marijuanna for pain e-Cigarette/Vaping Use: Never Used Second Hand Smoke Exposure: No Substance Use Type: Marijuana service: No Current occupational status: employed Current occupation: [employer] Cognitive needs: No Hearing needs: No Vision needs: Yes Female Reproductive History Menstrual Age of Menarche: 13 Review of Systems Const All systems reviewed & are unremarkable except as noted in HPI and below Reports as per HPI and Reports no additional complaints GI Reports no additional complaints Reports no additional complaints Telehealth Telehealth Telehealth Platform: [employer] Location of provider rendering services: practice address Location of patient: address on file Patient Identification confirmed using: Name, : Yes Telehealth method: video Patient verbally consented to treatment: Yes Patient verbally consented to billing insurance company: Yes Patient informed of any privacy concerns related to visit: Yes Minutes spent on Phone/Video with Pt.: 3 Assessment & Plan Assessment & Plan (1) Uterine myoma: Code(s): D25.9 - Leiomyoma of uterus, unspecified Category: Medical Plan: Discussed with the patient the results the ultrasound with fibroids stable in size, the patient was counseled about options of treatment decided for surgical management, was referred to [facility] minimally invasive scrap preparer surgery, appointment scheduled on 07/09. All questions answered, the patient verbalized understanding. I spent a total of 20 minutes reviewing the chart, talking to the patient via video and documenting in the medical record. Coding Level of Care Code Tele Est Pt Level 3 (05513) Diagnoses Uterine myoma D25.9
== END 2025-06-10 09:19 | disposition home or self-care (01) ==
LOC: HO.HWS 07:42
PROVIDERS: PCP Internal Medicine; Visit Provider Obstetrics & Gynecology
DX: D25.9 Leiomyoma of uterus, unspecified (principal)
CPT/HCPCS: 98005